=== PATIENT | female | born 1955 | race Caucasian/White ===

== ENCOUNTER 2018-06-05 12:04 | Emergency (ER) | payer MEDICAID, SELFPAY ==
[2018-06-05 12:10] VITALS: BP 149/77; PULSE 68; RESP 15; TEMP 36.5; O2SAT 98
[2018-06-05] MEDS: Ibuprofen 600 MG TAB PO (12:56)
--- NOTE | 2018-06-05 12:59 | ED.GENADUL_ITS ---
Discharge Plan Disposition Patient Disposition: HOME Condition: Stable Discharge Details Chief Complaint: Orthopedic Clinical Impression: Fracture of left toe Primary Care Provider: Anita Lea ED Provider: Bernard Marlow Home Meds and New Rx's Prescriptions: Continue multivitamin 1 EACH tablet 1 ea PO DAILY RF: 0 ascorbic acid (vitamin C) [Vitamin C] 1,000 MG tablet 1,000 mg PO DAILY Qty: 1 RF: 0 Discharge Instructions Instructions: Toe Fracture (ED) Discharge Data Discharge Physician: Bernard Marlow Medical Decision Making MDM Narrative Medical decision making narrative: 62 yo female who denies chronic medical problems comes in with 3 weeks of left small toe pain after she struck it on a curb and still has pain so came here. She denies fevers. Based on exam I suspect contusion, but will xray to eval for fx. No warmth or significnat erythema so doubt septic joint, cellulitis or gout Xray shows no significant displacement, possible small hairline fracture of distal mid small toe. Nursing will navin tape her toes and advised ASHLEY f/u with pcp. Differential Diagnosis contusion, fx, sprain, strain Imaging Data Radiologic Study: Attestation: I personally reviewed and interpreted this imaging study as follows: Imaging: X-Ray (left foot xray) My impression: possible small hairline fracture of small toe, no significant displacement HPI - General Adult General Mode of arrival: ambulatory . Date/Time Provider Initiated Documentation: 06/05/18 12:47 . Limitations to Documentation: no limitations . Information obtained by: patient . History of Present Illness 62 year old F presents to the emergency department with the chief complaint of left little toe pain, described as mild, with intensity rated at 3. Quality is described as aching, and is localized to the lower extremity. Patient reports no radiation. Patient started experiencing this week(s) (3) and it has been constant. Rest improves symptom(s), Movement worsens symptoms . Patient notes no other symptoms.. Patient did receive the following treatments prior to arrival, other (tylenol) Related Data Home Medications Medication Instructions Recorded Confirmed multivitamin 1 ea PO DAILY 09/24/13 06/05/18 ascorbic acid (vitamin C) [Vitamin 1,000 mg PO DAILY #1 12/01/17 06/05/18 C] Allergies Allergy/AdvReac Type Severity Reaction Status Date / Time glycerin Allergy Unknown RASH Unverified 06/05/18 12:14 phenylephrine Allergy Unknown RASH Unverified 06/05/18 12:14 pramoxine Allergy Unknown RASH Unverified 06/05/18 12:14 General Stated Complaint: Orthopedic MACK: 4 Review of Systems Review of Systems All systems reviewed & are unremarkable except as noted in HPI and below Constitutional Denies chills, Denies fever(s) and Denies weakness Eyes Patient Denies loss of vision ENT Denies change in voice Cardiovascular Denies chest pain and Denies dyspnea Respiratory Denies dyspnea Gastrointestinal Denies abdominal pain, Denies nausea and Denies vomiting Genitourinary Denies dysuria Musculoskeletal Denies joint swelling Integumentary/Breasts Denies rash Neurologic Denies loss of vision and Denies weakness Psychiatric Denies depression Endocrine Denies cold intolerance and Denies heat intolerance Allergic/Immunologic Reports urticaria PFSH Family History Mother Essential hypertension Hyperlipidemia Neoplasm Cerebrovascular accident Sister Essential hypertension Endometriosis Sister Endometriosis Sister Substance abuse Diabetes Essential hypertension Endometriosis Brother Diabetes Essential hypertension Heart disease Brother Essential hypertension Brother Substance abuse Diabetes Heart disease Myocardial infarction Grandfather No problems noted. Grandfather No problems noted. Grandmother Essential hypertension Neoplasm Grandmother No problems noted. Son No problems noted. Daughter No problems noted. Social History Smoking/Tobacco Use Status: Never Surgical History Biopsy of breast Colonoscopy - MAC (~12/2011) Ligation of fallopian tube Sigmoidoscopy (07/06/13) Tonsillectomy and adenoidectomy Exam Const General: no acute distress Orientation: alert [facility] Head: normal to inspection Ears: external ears normal General nose exam: external nose normal Mouth: moist mucous membranes Eyes General: appearance normal, both eyes and all related structures Neck Neck: normal visual inspection Resp Effort & Inspection: normal respiratory effort and able to speak in complete sentences Cardio Rate: regular rate Skin General skin exam: no rashes or lesions noted Neuro General: alert and oriented x3 Extrem General: other (mild swelling and ertyhema of distal left small toe. Full rom , no warmth, intact sensation) Psych Mental Status: mental status grossly normal Course Vital Signs Temperature 36.5 C 06/05/18 12:10 Pulse 68 06/05/18 12:10 Respiratory Rate 15 06/05/18 12:10 Blood Pressure 149/77 H 06/05/18 12:10 Pulse Oximetry 98 06/05/18 12:10 Temperature 36.5 C 06/05/18 12:10 Pulse 68 06/05/18 12:10 Respiratory Rate 15 06/05/18 12:10 Blood Pressure 149/77 H 06/05/18 12:10 Pulse Oximetry 98 06/05/18 12:10
--- NOTE | 2018-06-05 13:15 | DI.RAD_ITS ---
SYMPTOMS/DIAGNOSIS: PAIN LT SMALL TOE LEFT FOOT: No fracture or dislocation is seen. IMPRESSION: Negative left foot.
[2018-06-05 13:49] VITALS: BP 149/77; PULSE 68; RESP 15; TEMP 36.5; O2SAT 98
== END 2018-06-05 14:58 | disposition home or self-care (01) ==
PROVIDERS: Emergency Provider Emergency Medicine; PCP Nurse Practitioner Family
DX: S92.532A Displaced fracture of distal phalanx of left lesser toe(s), initial encounter for closed fracture (principal); W22.8XXA Striking against or struck by other objects, initial encounter
CPT/HCPCS: 99284; 73630

== ENCOUNTER 2019-07-23 08:37 | Outpatient (CLI) | payer MEDICARE, SELFPAY | END 2019-07-23 08:57 | PROVIDERS: PCP Nurse Practitioner Family; Visit Provider Nurse Practitioner Family | DX: Z00.00 Encounter for general adult medical examination without abnormal findings (principal); Z53.29 Procedure and treatment not carried out because of patient's decision for other reasons | CPT/HCPCS: 80048; 80061; 83036 ==

== ENCOUNTER 2019-10-04 09:57 | Outpatient (CLI) | payer MEDICARE, MEDICAID, SELFPAY ==
[2019-10-04 14:19] LABS: Anion Gap 7.7 mmol/L (3-11); BUN 8 mg/dL (7-18); CO2 29.3 mmol/L (21.0-32.0); CREATININE 0.61 mg/dL (0.55-1.02); Calcium 9.8 mg/dL (8.5-10.1); Calculated LDL 108 mg/dL; Chloride 108 mmol/L (98-107); Cholesterol 189 mg/dL (<200); Glucose 91 mg/dL (74-106); HDL Cholesterol 76 mg/dL (40-60); Potassium 4.4 mmol/L (3.5-5.1); Sodium 145 mmol/L (136-145); Triglyceride 27 mg/dL (<150)
[2019-10-05 14:43] LABS: Hemoglobin A1C 5.6 % (3.8-5.6)
== END 2019-10-04 10:17 ==
PROVIDERS: PCP Nurse Practitioner Family; Visit Provider Nurse Practitioner Family
DX: E11.9 Type 2 diabetes mellitus without complications (principal); Z83.3 Family history of diabetes mellitus
CPT/HCPCS: 36415; 80048; 80061; 83036

== ENCOUNTER 2019-10-15 14:45 | Outpatient (CLI) | payer MEDICARE, SELFPAY ==
[2019-10-15 15:04] LABS: HCT 43.4 % (36.0-46.0); HGB 14.2 g/dL (12.0-15.5); Mean Corp. HGB Concentration 32.7 g/dL (32.0-36.0); Mean Corpuscular Volume 91.8 fL (80-95); Mean Platelet Volume 9.7 fL (8.0-11.0); Platelet Count 286 x1000/uL (130-400); RBC 4.73 m/cumm (4.00-5.20); RBC Distribution Width 12.9 % (11.7-14.6); White Blood Cell Count 6.25 k/cumm (4.4-10.8)
== END 2019-10-15 15:05 ==
PROVIDERS: PCP Nurse Practitioner Family; Visit Provider Nurse Practitioner
DX: R53.83 Other fatigue (principal); R10.2 Pelvic and perineal pain
CPT/HCPCS: 36415; 85027; 84443

== ENCOUNTER 2019-10-19 00:29 | Outpatient (CLI) | payer MEDICARE, MEDICAID, SELFPAY ==
--- NOTE | 2019-10-19 12:49 | DI.US_ITS ---
EXAM: US PELVIS TRANSVAGINAL CLINICAL HISTORY: PELVIC PAIN IN FEMALE/BLOATING,r10.2,r14.0 TECHNIQUE: Ultrasound performed using standard protocol. COMPARISON: SOFT TISSUE UPPER/LOWER EXT US from 03/22/2010 FINDINGS: Pelvic ultrasound was performed transabdominally and transvaginally. Please see the accompanying cecile a sheet for measurements of pelvic structures. Uterus is normal in size and shape but the myometrium is poorly visualized transvaginally and transabdominally for technical reasons. There are multiple calcifications seen in the fundal portion of the endometrium which could be associated with a small e ndometrial mass. Otherwise endometrial stripe is unremarkable measuring 1-2 millimeters in thickness . The ovaries are unremarkable in appearance as visualized, although not ideally seen. No free fluid identified in the cul-de-sac. Unremarkable limited scanning of the kidneys. IMPRESSION: Question small calcified endometrial mass in the fundus of the uterus. Correlation with endometrial biopsy suggested.
== END 2019-10-19 00:49 ==
PROVIDERS: PCP Nurse Practitioner Family; Visit Provider Nurse Practitioner
DX: R10.2 Pelvic and perineal pain (principal); R14.0 Abdominal distension (gaseous); N85.8 Other specified noninflammatory disorders of uterus; R19.09 Other intra-abdominal and pelvic swelling, mass and lump
CPT/HCPCS: 76830; 76856

== ENCOUNTER 2020-02-28 09:05 | Outpatient (CLI) | payer MEDICARE, MEDICAID, SELFPAY ==
--- NOTE | 2020-02-28 15:15 | DI.CT_ITS ---
EXAM: CT HEAD WO CLINICAL HISTORY: Occipital headache x 5mo,R51 TECHNIQUE: COMPARISON: No exams were available for comparison FINDINGS: Noncontrast CT was performed. There is mild bifrontal atrophy. There is no evidence of acute intrac ranial hemorrhage, mass effect, or midline shift. The orbital and temporal bone structures appear intact. The visualized mastoid air cells and paranas al sinuses appear clear. IMPRESSION: Evidence of acute intracranial process.
== END 2020-02-28 09:25 ==
PROVIDERS: PCP Nurse Practitioner Family; Visit Provider Nurse Practitioner Family
DX: R51 Headache (principal); G31.89 Other specified degenerative diseases of nervous system
CPT/HCPCS: 70450

== ENCOUNTER 2020-05-15 01:04 | Outpatient (CLI) | payer MEDICARE, MEDICAID, SELFPAY ==
--- NOTE | 2020-05-15 07:15 | DI.RAD_ITS ---
EXAM: XR CERVICAL SPINE COMP 4-5V INDICATION: Neck pain, asssess for DDD,M54.2. COMPARISON: No exams were available for comparison TECHNIQUE: 2D digital imaging was performed. FINDINGS: Moderate to severe narrowing of the C5-6 and C6-7 disc spaces. There are small endplate osteophytes at these levels. There is mild bilateral neural foraminal narrowing. There are mild facet joint de generative changes. The alignment appears normal. The airway appears intact. IMPRESSION: Degenerative changes C5-6 and C6-7. DATA REPOSITORY: RADIATION DOSE DELIVERED:
== END 2020-05-15 01:24 ==
PROVIDERS: PCP Nurse Practitioner Family; Visit Provider Nurse Practitioner Family
DX: M47.812 Spondylosis without myelopathy or radiculopathy, cervical region (principal); M48.02 Spinal stenosis, cervical region
CPT/HCPCS: 72050

== ENCOUNTER 2021-07-02 01:02 | Outpatient (CLI) | payer MEDICARE, MEDICAID, SELFPAY ==
--- NOTE | 2021-07-02 09:35 | DI.MRI_ITS ---
Exam(s) MR BRAIN WO EXAM: MR BRAIN WO CLINICAL HISTORY: TORRE with visual disturbance to right eye,R51.9. TECHNIQUE: Multiplanar multisequence MRI of the brain was performed. CONTRAST MATERIAL: Noncontrast. COMPARISON: CT CT HEAD WO from 02/28/[address] HEAD WO from 02/28/2020 FINDINGS: VENTRICLES AND EXTRA AXIAL SPACES: Normal in size and morphology for the patient's age. HEMORRHAGE: None. CEREBRAL PARENCHYMA: No focus of restricted diffusion to suggest acute infarct. No space-occupying le pramod identified. Mild frontal atrophy, unchanged. Scattered foci of high signal in the white matter , likely reflecting microvascular changes. MIDLINE SHIFT: None. BRAINSTEM/CEREBELLUM: Normal. VISUALIZED PARANASAL SINUSES/MASTOIDS: Clear. Vascular flow voids are intact. Orbits are unremarkable. Pituitary normal in size. IMPRESSION: Atrophy and scattered white matter foci likely reflecting microvascular disease. DATA REPOSITORY:
== END 2021-07-02 01:22 ==
PROVIDERS: PCP Nurse Practitioner Family; Visit Provider Nurse Practitioner Family
DX: R51.9 Headache, unspecified (principal); G31.9 Degenerative disease of nervous system, unspecified
CPT/HCPCS: 70551

== ENCOUNTER 2021-07-13 01:16 | Outpatient (CLI) | payer MEDICARE, MEDICAID, SELFPAY ==
[2021-07-13 12:42] LABS: HCT 40.3 % (36.0-46.0); MCHC 32.3 % (32.0-36.0); MCV 93.1 fL (80-95); MPV 9.7 fL (8.0-11.0); Platelet Count 256 10^3/uL (130-400); RBC 4.33 10^6/uL (3.93-5.22); RDW 12.8 % (11.7-14.6); RDW-SD 44.1 fL; WBC 5.29 10^3/uL (4.4-10.8)
[2021-07-13 12:55] LABS: ESR 10 mm/hr (0-30)
[2021-07-13 13:03] LABS: ALT 29 U/L (14-59); AST 16 U/L (15-37); Albumin 3.8 g/dL (3.4-5.0); Alkaline Phosphatase 59 U/L (46-116); Anion Gap 7.1 mmol/L (3-11); BUN 13 mg/dL (7-18); Bilirubin, Total 0.5 mg/dL (0.2-1.0); CO2 27.9 mmol/L (21.0-32.0); CREATININE 0.6 mg/dL (0.55-1.02); Calcium 10.1 mg/dL (8.5-10.1); Calculated LDL 110 mg/dL (<100); Chloride 108 mmol/L (98-107); Cholesterol 206 mg/dL (<200); Glucose 92 mg/dL (74-106); HDL Cholesterol 88 mg/dL (40-60); Potassium 4.5 mmol/L (3.5-5.1); Sodium 143 mmol/L (136-145); TSH (W/Ref FT4) 1.96 uIU/mL (0.36-3.74); Total Protein 6.7 g/dL (6.4-8.2); Triglyceride 40 mg/dL (<150)
[2021-07-13 13:11] LABS: C-Reactive Protein 0.09 mg/dL (0.0-0.3)
== END 2021-07-13 01:17 | disposition home or self-care (01) ==
LOC: LOS 01:16
PROVIDERS: PCP Nurse Practitioner Family; Visit Provider Family Medicine
DX: G44.59 Other complicated headache syndrome (principal); I10 Essential (primary) hypertension
CPT/HCPCS: 36415; 80053; 80061; 85027; 85652; 84443; 86140

== ENCOUNTER 2021-08-03 03:34 | Outpatient (CLI) | payer MEDICARE, MEDICAID, SELFPAY ==
[2021-08-03 13:03] LABS: Anion Gap 9.2 mmol/L (3-11); BUN 10 mg/dL (7-18); CO2 26.8 mmol/L (21.0-32.0); CREATININE 0.7 mg/dL (0.55-1.02); Calcium 9.9 mg/dL (8.5-10.1); Chloride 105 mmol/L (98-107); Glucose 99 mg/dL (74-106); Sodium 141 mmol/L (136-145)
== END 2021-08-03 03:35 | disposition home or self-care (01) ==
LOC: LOS 03:34
PROVIDERS: PCP Nurse Practitioner Family; Visit Provider Family Medicine
DX: I10 Essential (primary) hypertension (principal)
CPT/HCPCS: 36415; 80048

== ENCOUNTER 2021-08-14 08:26 | Outpatient (CLI) | payer MEDICARE, MEDICAID, SELFPAY ==
--- NOTE | 2021-08-16 15:44 | PDOC.EEG ---
Neurology EEG EEG: [facility] Department of Neurology EEG REPORT Date of Recordin08/14/21 Interpreting Physician: Dr. Betty Clark PCP/Referring Provider: Dr. Burgess/Dr. Eleazar Genao Reason for study: Ms. Banegas is a 65 year-old woman with new daily persistent headaches following a 10 min hallucination of the right eye only. Current Medications: Home Medications Medication Instructions Recorded Confirmed Type calcium carbonate 500 mg (1,250 1 tab PO DAILY 10/15/19 08/10/21 History mg)-vitamin D3 400 unit tablet ascorbate calcium (vitamin C) 500 500 mg PO TID tab 06/30/20 08/10/21 History mg tablet varicella-zoster glycoE [id number] 0.5 ml IM ONCE #1 ea 05/14/21 08/10/21 Rx adj(PF) 50 mcg/0.5 mL IM susp, kit aspirin 325 mg tablet 325 mg PO DAILY 08/10/21 08/10/21 History lisinopril 2.5 mg tablet 2.5 mg PO DAILY #90 tab 08/10/21 08/10/21 Rx METHODS: A 21 channel digitized electroencephalogram was performed in the [facility] Clinical Neurophysiology Laboratory. The 10/20 international system of electrode placement was used and bipolar and referential electrode montages were recorded. In addition to EEG the patient was monitored for EKG and lateral/vertical eye movements. Activation procedures of photic stimulation and hyperventilation were performed if applicable. Video was used during activation procedures and during events where applicable. The duration of the recording was 30 minutes. DESCRIPTION OF EEG: The patient was noted to be awake, drowsy, and asleep during the recording. During maximal wakefulness a 9-Hz posterior background rhythm was present which was well-modulated, symmetrical, reactive to eye opening, and of moderate voltage. With eye opening the background activity changed to a low voltage mixture of alpha, beta, and occasional theta range frequencies. Faster frequencies were present in the bilateral anterior head regions. There was a normal anterior-posterior voltage gradient. During drowsiness, there was attenuation of the posterior dominant background rhythm and vertex waves. Stage II sleep was present with symmetrical sleep spindles, K-complexes, and vertex waves. Activating Procedures: Photic stimulation was performed which produced a symmetrical posterior driving response at various flash frequencies. Hyperventilation was performed with moderate effort and produced no physiological slowing of the background. EKG: EKG revealed normal sinus rhythm. INTERPRETATION: This EEG is normal during the awake and sleep states as well as during photic stimulation and hyperventilation. PRIOR EEG: none CLINICAL CORRELATION: No focal regions of cerebral dysfunction or epileptiform activity was present. Epilepsy remains a clinical diagnosis and a normal EEG does not rule out epilepsy. Clinical correlation is advised. Betty Clark MD
== END 2021-08-14 08:27 | disposition home or self-care (01) ==
PROVIDERS: PCP Nurse Practitioner Family; Visit Provider Student in an Organized Health Care Education/Training Program
DX: R51.9 Headache, unspecified (principal); R44.1 Visual hallucinations
CPT/HCPCS: 95819

== ENCOUNTER 2021-08-16 01:04 | Outpatient (CLI) | payer MEDICARE, MEDICAID, SELFPAY ==
--- NOTE | 2021-08-16 11:35 | DI.CT_ITS ---
Exam(s) CT BRAIN NECK CTA EXAM: CT BRAIN NECK CTA CLINICAL HISTORY: NEW DAILY PERSISTENT HEADACHE, G44.52,F/U CAROTID. TECHNIQUE: Imaging Protocol: Axial CT angiography was performed with multi-slice acquisition and mu lti-planar and/or 3D reconstructions. CONTRAST MATERIAL: Intravenous: Omnipaque 350 Contrast volume:structured data in ml COMPARISON: No exams were available for comparison FINDINGS: CTA Neck W: Aortic arch anatomy: The aortic arch anatomy is conventional. Anterior circulation: Both common carotid arteries ascend with normal luminal diameters. There is no significant plaque ev ident in these vessels. There is minimal atherosclerotic disease at the level the carotid bulbs and proximal internal carotid arteries. No significant stenosis and the internal carotid arteries are ni chris patent in the upper neck and skull base. Posterior circulation: The left vertebral artery is dominant. It arises in conventional fashion off of the left subclavian artery. No significant stenosis at its origin in the subclavian artery proximal to the vertebral art marce takeoff point. The left vertebral artery ascends with normal luminal diameter in the foramen tra nsversarium and contribute to the formation of the basilar artery at the skull base. Right vertebral artery is a thinner vessel. It arises off of the subclavian artery and also ascends without intraluminal thrombus nor dissection. However, it is hypoplastic at the skull base and termi nates as posterior inferior cerebellar artery. The main contributor to the formation of the basilar artery is the left vertebral artery. CTA Brain W: Anterior circulation: Both internal carotid arteries are patent in the skull base and cavernous sinuses. Supraclinoid aspe cts are patent. A1 segments are patent as are the anterior cerebral arteries. There is no evidence of aneurysm at the level of the anterior communicating artery. Both middle cerebral arteries are patent out to the sylvian fissure branches. Posterior circulation: Basilar artery ascends in the midline. Distally gives off superior cerebellar arteries bilaterally a nd above this level terminates as patent bilateral posterior cerebral arteries. Both posterior cereb ral arteries also received blood flow from posterior communicating arteries on either side of the cir [id number]. CT BRAIN: There is no evidence of intracranial hemorrhage, mass effect, or shift of midline structures. There are no extra-axial fluid collections. Ventricles are not enlarged or shifted. There are no ring enh ancing lesions in the brain and no abnormal meningeal enhancement. IMPRESSION: 1. Patent carotid arteries in the neck. No significant stenosis. Left vertebral artery is dominant. No evidence of vertebral artery thrombosis nor dissection. 2. Patent intracranial arteries. No intraluminal thrombus. No aneurysms. 3. No significant focal findings in the brain. No abnormal meningeal enhancement, focal nor diffus e. RADIATION DOSE DELIVERED: 1,827.02mGy.cm Total DLP DATA REPOSITORY: All CT scans at this facility are submitted to the National Radiology Data Registry (NRDR) Dose Index Registry (DIR) with the [employer] (A[employer]). RADIATION OPTIMIZATION: All CT scans at this facility use at least one of these dose optimization te chniques: automated exposure control; mA and/or kV adjustment per patient size (includes targeted exa ms where dose is matched to clinical indication); or iterative reconstruction.
[2021-08-16] MEDS: Omnipaque 350 MG/ML 100 ML BTL IJ (11:37)
[2021-08-16] MEDS: Normal Saline - Diluent 50 ML VIAL IV (11:38)
[2021-08-16] MEDS: Normal Saline Flush 10 ML SYR IVP (11:39)
== END 2021-08-16 01:24 ==
PROVIDERS: PCP Nurse Practitioner Family; Visit Provider Orthopaedic Surgery Adult Reconstructive Orthopaedic Surgery
DX: G44.52 New daily persistent headache (NDPH) (principal)
CPT/HCPCS: 70496; 70498; J3490

== ENCOUNTER → 2021-08-20 09:19 | Outpatient (BNVA) | payer MEDICARE, MEDICAID, SELFPAY | PROVIDERS: PCP Nurse Practitioner Family; Referring Provider Nurse Practitioner Family; Visit Provider Psychiatry & Neurology Neurology ==

== ENCOUNTER 2022-03-01 07:15 | Day surgery (SDC) | payer MEDICARE, MEDICAID, SELFPAY ==
[2022-03-01 07:50] VITALS: BP 186/75; PULSE 64; RESP 16; TEMP 36.9; O2SAT 99
[2022-03-01] MEDS: Tropicam./Phenyleph. (1/2.5%) 5 ML BTL OD ×3 (08:06→08:19)
--- NOTE | 2022-03-01 08:28 | W.ANESPRE ---
General Info Date of Service Date Performed: 03/01/22 Height: 5 ft 6 in Weight: 70.8 kg Body Mass Index (BMI): 25.2 Surgical Procedure: Operation Date: 03/01/22 09:50 Proposed Procedure Side Surgeon p Cataract Extraction with IOL Implant Right Herson Steve MD Meds Allergies and Home Medications Allergies Allergy/AdvReac Type Severity Reaction Status Date / Time cocoa butter Allergy Intermediate Rash Verified 03/01/22 07:49 [From Preparation H] glycerin [From Preparation H] Allergy Intermediate Rash Verified 03/01/22 07:49 mineral oil* Allergy Intermediate Rash Verified 03/01/22 07:49 [From Preparation H] petrolatum,white Allergy Intermediate Rash Verified 03/01/22 07:49 [From Preparation H] shark liver oil Allergy Intermediate Rash Verified 03/01/22 07:49 [From Preparation H] cephalexin AdvReac Nausea,Vomi Verified 03/01/22 07:49 ting,cramps ,diarrhea Home Medication Medication Instructions Recorded calcium carbonate 500 mg-vitamin 1 tab PO DAILY 10/15/19 D3 10 mcg (400 unit) tablet (Calcium 500 + D) ascorbate calcium (vitamin C) 500 500 mg PO TID 06/30/20 mg tablet multivitamin 1 tab PO DAILY 02/27/22 Current Visit Medications: Current Medications Generic Name Dose Route Start Last Admin Trade Name Freq PRN Reason Stop Dose Admin Acetaminophen 1,000 mg 03/01/22 06:00 Acetaminophen 500 Mg Tab PO Q4H PRN PRN Miscellaneous Medication 0 ml 03/01/22 06:00 Prednisolone 1%, Moxifloxacin 0.5%, Nepafenac 0.1% 5ml Btl OD DIRECTED [facility] Miscellaneous Medication 0 ml 03/01/22 06:00 03/01/22 08:19 Tropicam./Phenyleph. (1/2.5%) 5 Ml Btl OD 1 drp DIRECTED PRASHANT Administration Tetracaine HCl 0 ml 03/01/22 06:00 Tetracaine 0.5% 4 Ml Btl OD DIRECTED PRASHANT PFSH Active Problems Active Problems: Problem Status Onset Code Hearing loss H91.90 Hyperlipidemia E78.5 Essential hypertension I10 Migraine headache with aura G43.109 Recurrent occipital headache R51.9 Medical History Medical History (Updated 03/01/22 @ 08:57 by Herson Steve MD) BPPV (benign paroxysmal positional vertigo) Herpes zoster 05/2021 Osteoarthritis C5-6 cervical spine Osteopenia [place] 06[place]04[place] [facility] [place]igmoid diverticulosis Tubulovillous adenoma of colon Surgical History Surgical History History of bilateral tubal ligation (~1977) History of reversal of tubal ligation (~1981) S/P colonoscopy S/P tonsillectomy and adenoidectomy Tobacco Smoking/Tobacco Use Status: Never Passive smoking exposure: Yes Second hand exposure: Yes Alcohol Alcohol Intake: current Alcohol intake frequency: a few times a month Alcohol type: wine Substance Use Substance use: Never Substance use type: does not use Prental History History 4 Para 2 Hx # Term Pregnancies Multiple births Hx # Pregnancies Ectopic pregnancies AB induced Hx Number of Living Children 2 AB spontaneous 2 Vital Signs and Lab Results Vital Signs Most Recent Vital Signs in EMR: Most Recent Vital Signs Temp Pulse Resp BP Pulse Ox 36.9 C 64 16 186/75 H 99 03/01/22 07:50 03/01/22 07:50 03/01/22 07:50 03/01/22 07:50 03/01/22 07:50 Lab Results Blood Type / Crossmatch: No Data to Display Complete Blood Count: No Data to Display Complete Metabolic Panel: No Data to Display Liver Function Panel: No Data to Display Coagulation Panel: No Data to Display Cardiac Panel: No Data to Display Arterial Blood Gas: No Data to Display Venous Blood Gas: No Data to Display Pancreas Panel: No Data to Display Thyroid Panel: No Data to Display Infectious Disease: No Data to Display Blood Cultures: No Data to Display Toxicology Panel: No Data to Display Anesthesia Assessment and Plan Anesthesia History Personal History: No History of Anesthesia Complications Family History: No Family History of Anesthesia Complications Exercise Tolerance Exercise Tolerance: Metabolic Equivalents>4 Cardiac & Pulmonary Exam Cardiac Exam: Normal S1/S2 Heart Sounds Pulmonary Exam: Clear Bilateral Breath Sounds Implantable Cardiac Device Does patient have a Pacemaker or an ICD?: No Airway Exam Known Difficult Airway: No Mallampati Class: 2 Mouth Opening: Normal (> 3cm) Thyromental Distance: Greater than 3 cm Neck Range of Motion: Full ROM Neck Circumference: Normal Teeth Condition: Normal Dentition ASA Classification ASA Score: ASA 2 Emergency Case?: No NPO Status NPO Status: NPO Clears >2 hours, Solids >8 hours Anesthesia Plan Resuscitation Status: Full Code Anesthesia Technique: MAC Anesthesia Airway Planned: Natural Airway Monitors Used: Standard Monitors
[2022-03-01] MEDS: Midazolam/Ketamine/Ondansetron (3/25/2MG) 1 TAB 1 EACH SL (09:00)
[2022-03-01 09:04] VITALS: BMI 25.2
[2022-03-01] MEDS: Tetracaine 0.5% 4 ML BTL OD (09:05)
[2022-03-01] MEDS: Lidocaine 2% Jelly 6 ML SYR (09:20)
[2022-03-01] MEDS: Balanced Salt Soln.-PLUS 500 ML BAG (09:20)
[2022-03-01] MEDS: Povidone-Iodine Ophth 30 ML BTL (09:21)
[2022-03-01] MEDS: Duovisc Viscoelastic System EACH 1 EACH (09:22)
--- NOTE | 2022-03-01 09:37 | W.PM.DSUDISC ---
Discharge Plan Disposition Patient Disposition: HOME Condition: Good Discharge Details Attending Provider: Herson Steve Primary Care Provider: Danielle Burgess Home Meds and New Rx's Prescriptions: No Action ascorbate calcium (vitamin C) 500 mg tablet 500 mg PO TID calcium carbonate-vitamin D3 [Calcium 500 + D] 500 mg(1,250mg) -400 unit tablet 1 tab PO DAILY multivitamin Tablet 1 tab PO DAILY Discharge Instructions Stand Alone Forms: Post-op Topical Cataract, Conrad Riggs (DSU) Discharge Orders Discharge Orders: Discharge Order (Routine); Ordered 03/01/22 Ordered By: Herson Steve DS: Diagnosis Discharge Diagnosis (1) Nuclear sclerotic cataract of right eye: Status: Resolved (2) Cortical cataract of right eye: Status: Resolved
--- NOTE | 2022-03-01 09:38 | W.PM.OP ---
Date of service: 03/01/22 Time of Service: 08:38 Operative Note Operative Note DATE OF PROCEDURE: 03/01/22 PRE-OP DIAGNOSIS: Nuclear/cortical cataract, right eye POST-OP DIAGNOSIS: same PROCEDURE: Cataract extraction using phacoemulsification with intraocular lens implant, right eye SURGEON: Herson Steve ANESTHESIA TYPE: Local By Surgeon and MAC Refer to Anesthesia Record ESTIMATED BLOOD LOSS: 0 PATHOLOGY: none sent COMPLICATIONS: None Patient was transported to: same day Patient's condition: stable Implants: Saul & Saul/JACQUELINE Tecnis [id number] Indications: Progressive visual loss due to cataract, right eye Procedure Description: CATARACT SURGERY OPERATIVE REPORT PREOPERATIVE DIAGNOSIS: 1. Nuclear/cortical cataract, right eye POSTOPERATIVE DIAGNOSIS: Same OPERATION: 1. Cataract extraction using phacoemulsification with posterior chamber intraocular lens implant, right eye. IOL: IOL Substation Design Draftsperson/Model: Saul & Saul / JACQUELINE Tecnis [id number] IOL Power: + 20.0 diopters IOL Serial Number: [id number] Optic Diameter: 6.0mm Haptic/Overall Diameter: 13.0mm PHACO INFO: [employer] In-Home Mediaurion Vision System with OZil and Active Fluidics Cumulative Dispersed Energy (CDE): 9.15 seconds SURGEON: Herson Steve MD, RADHA ANESTHESIA: Monitored Anesthesia Care (MAC), with local sub-tenon's anesthetic infiltration COMPLICATIONS: None SPECIMENS: None INDICATIONS FOR PROCEDURE: The patient is a 66-year-old lady with history of diminished visual acuity in her right eye secondary to development of nuclear/cortical cataract. The option of cataract surgery was offered to the patient and she wished to proceed. She has a history of moderate to high myopia and reads without her glasses at a distance of approximately 12 inches or so. She wishes to remain that way postoperatively. Postoperative refractive target is -3.0 diopters or slightly more myopic. PROCEDURE: The correct surgical eye was identified and marked as the right eye and the pupil was dilated in the preoperative area using mydriatics and cycloplegics. The dilated pupil size was 5.0 mm. Oral sedation was administered in the form of an Imprimis MKO Melt (midazolam 3mg/ketamine 25mg/ondansetron 2mg). The patient was brought to the operating room where cardiopulmonary monitoring was instituted and surgical time-out was performed, confirming the correct operative eye and IOL power. Topical anesthesia was administered and ophthalmic povidone-iodine 5% was instilled into the conjunctival fornices. Lidocaine gel was applied to the cornea and the beatrice-ocular area was prepped with Betadine 10% solution and draped in the usual sterile fashion for intraocular surgery, including an aperture drape. A Tegaderm transparent film dressing was cut in half and used to cover the lashes and lid margins. Care was taken to sequester the lashes and lid margins under the Tegaderm dressing. A lid speculum was placed between the lids of the operative eye and the Carlos Lux[employer] Revalia operating microscope was maneuvered into position. Marija scissors were then used to make a conjunctival buttonhole approximately 6mm posterior to the limbus in the inferonasal quadrant. Blunt dissection was carried out to expose bare sclera, and a blunt-tipped sub-tenon?s anesthesia cannula was introduced and passed posteriorly along the globe where non-preserved plain lidocaine was injected into posterior sub-Tenon?s space. A sideport knife was used to make a paracentesis port inferotemporally. Intraocular phenylephrine/lidocaine was injected into the anterior chamber. The anterior chamber was filled with viscoelastic. The anterior chamber was noted to be quite shallow, considering her axial length of greater than 24 mm. A 2.4mm keratome knife was used to construct a 2-plane near-clear corneal tunnel extending 2.0mm into clear cornea superiortemporally. A flap was raised on the anterior capsule and capsulorhexis forceps were used to complete a continuous curvilinear capsulorhexis of 5.0 mm. Balanced salt solution was then used to perform cortical cleaving hydrodissection and nuclear hydrodelineation until the lens could be freely rotated within the capsular bag. The lens nucleus was then disassembled and removed within the capsular bag and iris plane using phacoemulsification. Residual cortical material was removed using the I/A handpiece. The posterior capsule was carefully polished to remove as much residual lens epithelial cells as safely possible. The capsular bag was then inflated and the anterior chamber deepened with viscoelastic. The lens implant described above was inserted into the capsular bag using the JACQUELINE Storden Injector. A Kuglen hook was used to dial the IOL into position. Residual viscoelastic was then removed first from posterior to the IOL, then from the anterior chamber using the I/A handpiece. The lens implant was noted to center nicely within the capsular bag. The incisions were stromally hydrated, and the anterior chamber was reformed using BSS. Then 0.5cc of moxifloxacin 1.0mg/ml were injected into the capsular bag and anterior chamber. The incisions were checked with a Weck spear and found to be secure. Several drops of ophthalmic povidone-iodine 5% were then applied to the eye followed by two drops of Imprimis combination prednisolone/moxifloxacin/nepafenac solution. The drapes were removed and a clear plastic protective eye shield was placed over the eye. The patient was then returned to Same Day Surgery in stable condition.
[2022-03-01 09:40] VITALS: BP 151/76; PULSE 71; RESP 16; TEMP 36.6; O2SAT 100
--- NOTE | 2022-03-01 10:04 | W.ANESPOSTOP ---
Postoperative Evaluation Date, Time and Location Date Performed: 03/01/22 Time Performed: 09:45 Patient Location: Day Surgery Unit Vital Signs Most Recent Imported Vital Signs: Most Recent Vital Signs Temp Pulse Resp BP Pulse Ox 36.6 C 71 16 151/76 H 100 03/01/22 09:40 03/01/22 09:40 03/01/22 09:40 03/01/22 09:40 03/01/22 09:40 Pain Score Most Recent Pain Score: Most Recent Pain Score Pain Level 0 03/01/22 09:40 Assessment Mental Status: Awake (Alert & Oriented to Patient Baseline) Airway and Respiratory Function: Patent airway with normal (patient baseline) respiratory exam Cardiovascular Function: Hemodynamically Stable Hydration Status: Adequately Hydrated Nausea & Vomiting: No Nausea or Vomiting Pain: Pt. Denies Any Pain Peripheral Nerve Block: Patient did not receive a nerve block
[2022-03-01 10:05] VITALS: BP 143/80; PULSE 69; RESP 16; TEMP 36.1; O2SAT 97
== END 2022-03-01 10:14 | disposition home or self-care (01) ==
PROVIDERS: PCP Family Medicine; Visit Provider Ophthalmology
PROC: (CPT 66984; principal; 2022-03-01 09:40)
DX: H25.11 Age-related nuclear cataract, right eye (principal); I10 Essential (primary) hypertension; E78.5 Hyperlipidemia, unspecified
CPT/HCPCS: 66984; V2632

== ENCOUNTER → 2022-07-26 00:32 | Outpatient (CLI) | payer MEDICARE, SELFPAY ==
--- OUTSIDE RECORDS SUMMARY | 2022-07-26 00:33 | XMS_ITS | Encounter Summary ---
:1955 Author Organization [facility] [place] [address] Care Team Providers Name Role Phone Danielle Burgess MD Primary Care Provider Encounter Details Date Type Department Care Team Description 06/14/2022 Hospital Encounter Mammography/DXA at [facility], Encounter for [facility] screening mammogram [address] [place] [id number] [phone] Social History Tobacco Use Types Packs/Day Years Used Date Never Smoker Smokeless Tobacco: Never Used Alcohol Use Standard Drinks/Week Comments Yes 0 (1 standard drink = 0.6 oz pure alcoho l) occasionally 1-2 x monthly Alcohol Habits Answer Date Recorded How often do you have a drink containing Not asked alcohol? How many drinks containing alcohol do you Not asked have on a typical day when you are drinking? How often do you have six or more drinks on Not asked one occasion? Comment: occasionally 1-2 x monthly 05/18/2019 Sex Assigned at Date Recorded Female 06/06/2021 6:48 PM EDT documented as of this encounter Medications at Time of Discharge Medication Sig Dispensed Refills Start Date End Date lisinopriL (Zestril) 2.5 mg Take 2.5 mg by mouth 0 Tablet daily. aspirin EC 325 mg Tablet, Take 1 tablet by 30 tablet 3 04/2021 Delayed Release (E.C.) mouth daily. calcium-vitamin D3 600 mg Take by mouth. 0 calcium- 400 unit Tablet ascorbic acid, vitamin C, Take 1,000 mg by 0 (VITAMIN C) 1,000 mg Tablet mouth daily. multivitamin (THERAGRAN) 0 12/04/2010 tablet documented as of this encounter Plan of Treatment Not on filedocumented as of this encounter Procedures Procedure Name Priority Date/Time Associated Diagnosis Comme nts MAMMO SCREENING CAD Routine 06/14/2022 9:09 AM Encounter for R esults for this AND JAKOB BILATERAL EDT screening mammogram pr ocedure are in for breast cancer the result s section. documented in this encounter Results Mammo Screening Cad and Jakob Bilateral (06/14/2022 9:09 AM EDT) Anatomical Region Laterality Modality Breast Bilateral Mammography Specimen (Source) Anatomical Location Collection Method / Collectio n Time Received Time / Laterality Volume Narrative 06/14/2022 10:49 AM EDT BILATERAL MAMMOGRAPHY REASON FOR EXAM: Screening TECHNIQUE: CC and MLO views were obtaine d of each breast using standard 2-D mammography as well as 3-D tomosynth esis. Computer aided detection was used. This is compared with prior images . FINDINGS: There are scattered areas of f ibroglandular density. There are no suspicious microcalcifications, jonathan s, or areas of distortion. The pattern is stable. CONCLUSION: No mammographic evidence of malignancy. RECOMMENDATION: Regular screening mammograms starting be tween age 40 and 50 reduces the risk of from breast cancer. All screening tests have both risks and benefits. These risks and benefits should be assessed for each individual p atient through discussion with their provider to determine their prefer red breast cancer screening schedule. Women should report any breast changes t o a health care provider right away. Some women, because of their family hist ory, a genetic tendency, or other factors, should be screened with annual breast MRI as well as with mammograms. (The number of women who fal l into this category is very small). Patients and health care provide rs should discuss each patient? s history to decide if earlier screening a nd/or breast MRI are appropriate. Screening should continue as long as a w ira is in good health and is expected to live 10 years or longer. Screening mammography may not detect 10- 15% of breast cancers. A result letter has been sent to this pa tient by the [facility]. BIRADS CATEGORY 1: NEGATIVE Electronically signed by: Margarita bartholomew MD Danielle Burgess MD IMG MAMMO ORDERABLES documented in this encounter Visit Diagnoses Diagnosis Encounter for screening mammogram for br east cancer documented in this encounter Care Teams Irrigator Relationship Specialty Start Date End Date Danielle Burgess MD PCP - General Family Medicine 10/12/[address] [place] [id number] documented as of this encounter
--- OUTSIDE RECORDS SUMMARY | 2022-07-26 00:34 | XMS_ITS | Encounter Summary ---
:1955 Author Organization [facility] Address [facility] [place] [address] Care Team Providers Name Role Phone NghiaboubacarClaudia APRN Primary Care Provider Encounter Details Date Type Department Care Team Description 07/23/2017 Surgery Gastroenterology at [facility] Aldo Limon, FLEXIBLE SIGMOIDOSCOPY [facility] [place] [address] [facility] [phone] [place], [place] [address] Social History Tobacco Use Types Packs/Day Years Used Date Never Smoker Smokeless Tobacco: Never Used Alcohol Use Standard Drinks/Week Comments Yes 1 (1 standard drink = 0.6 oz pure alcoho l) occasionally Alcohol Habits Answer Date Recorded How often do you have a drink containing alcohol? Not asked How many drinks containing alcohol do you have on a Not aske d typical day when you are drinking? How often do you have six or more drinks on one occasion? No t asked Comment: occasionally 12/23/2011 Sex Assigned at Date Recorded Female 06/06/2021 6:48 PM EDT documented as of this encounter Last Filed Vital Signs Vital Sign Reading Time Taken Comments Blood Pressure 147/66 07/23/2017 1:45 PM EDT Pulse 65 07/23/2017 1:45 PM EDT Temperature - - Respiratory Rate 16 07/23/2017 1:45 PM EDT Oxygen Saturation 99% 07/23/2017 1:45 PM EDT Inhaled Oxygen Concentration - - Weight - - Height - - Body Mass Index - - documented in this encounter Discharge Instructions AttachmentsThe following attachments cannot be sent through Care Everywhere. SIGMOIDOSCOPY: POST-OP (KITTITIAN)documented in this encounter Medications at Time of Discharge Medication Sig Dispensed Refills Start Date End Date multivitamin (THERAGRAN) tablet 0 /0 04/2011 documented as of this encounter H&P Notes Hiwot Patel MD - 07/23/2017 12:56 PM EDT Gastroenterology and Hepatology Pre-Procedure History and Physical Exam Procedure: flex sig Indication: personal history of TVA Patient Active Problem List Diagnosis Code ??? Asymptomatic bilateral carotid artery stenosis I65.23 EXAM: HEENT: Airway examined, oropharynx clear Mallampati Score: 2 LUNGS: Clear to auscultation HEART: Regular rate and rhythm, normal S1, S2 ABDOMEN: Normal bowel sounds, soft, non tender, non distended, A/P Proceed with the planned endoscopic procedure. ASA 2 - Patient with mild systemic disease with no functional limitations Sedation Plan: moderate (conscious sedation) Risks and benefits of the procedure explained to the patient. Consent signed. documented in this encounter Miscellaneous Notes Brief Op Note - Aldo Limon MD - 07/23/2017 2:03 PM EDT Brief Operative Note Patient Name: Sophia Montes De Oca : [id number] MR#: [id number] Case Date: 07/23/2017 Surgeon: Surgeon(s) and Role: * Aldo Limon MD - Primary * Hiwot Patel MD - Fellow Preoperative diagnosis: pt is refusing sedation High risk colon cancer surveillance: Personal history of colonic polyps Postoperative diagnosis: * No post-op diagnosis entered * Procedure(s) (LRB): FLEXIBLE SIGMOIDOSCOPY (N/A) FLEXIBLE SIGMOIDOSCOPY; W REM TUMOR/POLYP/LESION BY SNARE Please see Provation for full procedure note. (Please see the Surgical Encounter Summary for any Implant and Specimen details pertinent to this patient.) documented in this encounter Plan of Treatment Not on filedocumented as of this encounter Procedures Procedure Name Priority Date/Time Associated Comments Diagnosis SURGICAL PATHOLOGY Routine 07/23/2017 1:46 PM Res ults for this REPORT EDT procedure are i n the results section. SPECIMEN TO PATHOLOGY Routine 07/23/2017 1:46 PM Results for this EDT procedure are i n the results section. FLEXIBLE 07/23/2017 1:11 PM pt is refusing SIGMOIDOSCOPY; W REM EDT sedation TUMOR/POLYP/LESION BY High risk colon SNARE cancer surveillance: Personal history of colonic polyps FLEXIBLE SIGMOIDOSCOPY 07/23/2017 1:11 PM pt is refusi ng EDT sedation High risk colon cancer surveillance: Personal history of colonic polyps FLEXIBLE SIGMOIDOSCOPY Routine 07/23/2017 12:56 R esults for this PM EDT procedure are i n the results section. documented in this encounter Results Surgical Pathology Report (07/23/2017 1:46 PM EDT) Component Value Ref Test Analysis Performed At [facility] QCoefficient Range Method Time Signature Surgical [id number] ? Location: ; [facility]; [facility] Pathology [facility] Report The signing pathologist has (i) examined the relevant preparation(s) for the [facility] specimen(s) and (ii) rendered or confirmed the diagnosis(es) . HOSPITAL LABORATORY . ?Surgic al Pathology DIAGNOSIS Sigmoid colon, polyp 15 mm, ?? polypectomy: Tubulovillous adenoma (multiple fragments). Electronically signed by: ??Savannah Light MD Verified: ??07/28/2017 ?Pathologist Performed at: ??-[facility] Dept. of Pathology, [place], [place] CLINICAL INFORMATION Specimen Submitted: A - Polyp 15 mm SG Clinical History: Flex sig hx TVA Clinical Diagnosis: Same SPECIMEN PROCESSING A - Labeled/Fixative: Polyp 15 mm SG, formalin. Quantity/Size: Multiple, 1.3 x 1.0 x 0.9 cm aggregate. Tissue Description: Soft red-brown polyp with detached tissu e fragments. Sections/Processing: (1) mul tiple detached fragments; (2) inked and trisected polyp. (T2) ??darrius Specimen (Source) Anatomical Collection Method Collection Time Re ceived Time Location / / Volume Laterality 07/23/2017 1:46 PM EDT Aldo Limon MD PATHOLOGY/CYTOLOGY ORDERABLE S Performing Organization Address City/[facility]/[place] [address] Specimen to Pathology (surgical or derm) (07/23/2017 1:46 PM EDT) Specimen Anatomical Collection Method Collection Time Receive d Time (Source) Location / / Volume Laterality AP Specimen 07/23/2017 1:46 PM 7 1:46 EDT PM EDT Narrative [facility] - 07/23/2017 1:46 PM EDT Specimen requisition ordered. ??Separate Pathology report to follow Aldo Limon MD PATHOLOGY/CYTOLOGY ORDERABLE S Performing Organization Address City/[facility]/[place] [address] FLEXIBLE SIGMOIDOSCOPY (07/23/2017 12:56 PM EDT) Component Value Ref Test Analysis Performed Pathologis t Range Method Time At [facility] FLEXIBLE [facility] PROVATION SIGMOIDOSCOPY Endoscopy Procedure Date: 07/23/2017 12:56 PM ? Patient Name: Sophia Montes De Oca ? Date of : 1955 ? Age: 61 ? Order #: [id number] ? Instrument Name: [id number] ? Procedure: ? Flexible Sigmoidoscopy Indications: ? Personal history of colonic polyps Providers: ? Aldo Limon, Derek Mathis, RN, ? Bernard Urias Referring MD: ?Claudia Perez Medicines: ? None Complications: ? No immediate complications. Procedure: ? Pre-Anesthesia Assessment: ? - Prior to the procedure, a H istory ? and Physical was performed, a nd ? patient medications, allergie s and ? sensitivities were reviewed. The ? patient's tolerance of previo us ? anesthesia was reviewed. ? - The risks and benefits of t he ? procedure and the sedation op tions ? and risks were discussed with the ? patient. All questions were a nswered ? and informed consent was obta ined. ? The procedure, indications, b enefits, ? risks and alternatives were e xplained ? to the patient. Specifically ? discussed were potential ? complications including, but not ? limited to, bleeding, perfora tion, ? infection, missing a cancer, and ? adverse medication reactions. The ? patient was placed in the lef t ? lateral decubitus position, a nd a ? digital rectal exam was perfo rmed. ? The Colonoscope was inserted in the ? anus and under direct visuali zation, ? advanced to the sigmoid colon . ? Careful inspection was made a s the ? scope was withdrawn. The flex ible ? sigmoidoscopy was accomplishe d ? without difficulty. The patie nt ? tolerated the procedure well. The ? quality of the bowel preparat ion was ? excellent. ? Findings: ? The perianal and digital rectal examinations were ? normal. ? A 15 mm polyp was found in the recto-sigmoid colon. ? The polyp was sessile. The polyp was removed with a ? hot snare. Resection and retrieval were complete. ? A few small-mouthed diverticula were found in the ? sigmoid colon. ? Moderate Sedation: ? Patient refused medication, requested procedure ? without sedation medication. Impression: ?- One 15 mm polyp at the ? recto-sigmoid colon at 20cm a djacent ? to tattoo site, removed with a hot ? snare in piecemeal fashoin, e dges ? obliterated with tip of josé jackson. ? Resected and retrieved. ? - Diverticulosis in the sigmo id colon. ? - Exam to 35cm only. Recommendation: ?- Await pathology results. ? - Full colonoscopy in 1 year for ? surveillance based on patholo gy ? results (prior history of TVA ). ? - No aspirin, ibuprofen, napr oxen, or ? other non-steroidal anti-infl ammatory ? drugs for 7 days after polyp removal. ? Attending Participation: ? I was present and participated during the entire ? procedure, including non-landon portions. ? Aldo Lao Limon, 07/23/2017 1:51:14 PM Number of Addenda: 0 Note Initiated On: 07/23/2017 12:56 PM Specimen (Source) Anatomical Collection Method Collection Time Re ceived Time Location / / Volume Laterality 07/23/2017 12:56 PM EDT Claudia Perez APRN GENERAL SURGICAL ORDERABLES Performing Organization Address City/State/ZIP Code Phon e Number [employer]OVATION documented in this encounter Visit Diagnoses Not on filedocumented in this encounter Active and Recently Administered Medications Care Teams Weight Loss Centre Manager Relationship Specialty Start Date End Date Claudia Perez APRN PCP - General 05/05/15 05/13/19 documented as of this encounter
--- OUTSIDE RECORDS SUMMARY | 2022-07-26 00:34 | XMS_ITS | Encounter Summary ---
:1955 Author Organization [facility] [place] [address] Care Team Providers Name Role Phone Claudia Perez Cassidy GALEANO Primary Care Provider Reason for Visit Reason Comments Blurred Vision Encounter Details Date Type Department Care Team Description 11/21/2017 Office Visit Ophthalmology at [facility] Bernard Aguilar Cataract, unspecified catara ct type, unspecified laterality; [facility] MD Dian Irregular astigmatism of [place] [address] CENTER [phone] OPHTHALMOLOGY DEPT. [place], [place] [address] Social History Tobacco Use Types [...] PM EDT documented as of this encounter Patient Instructions Patient InstructionsBernard Robertson MD - 11/21/2017 3:15 PM EST Use eye medications as instructed by Dr. Robertson during your appointment. For non eye medications not prescribed by the Ophthalmology (Eye) Clinic, please follow up with yourPCP (primary care provider) for instructions. Please call the eye clinic, , for any significant changes in vision, new flashes or floaters or eye pain Eye safety is important: please use eye protection during any activities in which you could injury your eyes. documented in this encounter Progress Notes Bernard Robertson MD - 11/21/2017 3:15 PM EST Encounter Diagnoses Name Primary? Cataract, unspecified cataract type, unspecified laterality ??? Irregular astigmatism of both eyes Sophia Montes De Oca is a 62 y.o. with the following ophthalmic problems: Irregular astigmatism OD>OS: This may be the cause of her visual complaints given that her cataracts are very mild. She has worn CL in past and I suggested that she follow up with her local provider relations specialist to see if this improves the clarity of her vision. She does not have corneal thinning or previousrefractive surgery so I don't think this represents progressive ectasia of the cornea Cataracts: mild follow ERM OU: seen by Dr. Hayward, no surgery indicated at this time Plan: - as above - Follow up 1 year or as needed - Findings and concerns discussed with Sophia and she expressed understanding. -Upon Return CEE with Pentacam documented in this encounter Plan of Treatment Not on filedocumented as of this encounter Procedures Procedure Name Priority Date/Time Associated Diagnosis Comme nts PENTACAM - CLINIC - Routine 11/21/2017 4:45 PM Irregular Re sults for this OU - BOTH EYES EST astigmatism of both proced ure are in eyes the results section. documented in this encounter Results PENTACAM - OU- BOTH EYES (11/21/2017 4:45 PM EST) Anatomical Region Laterality Modality Other Specimen (Source) Anatomical Location Collection Method / Collectio n Time Received Time / Laterality Volume Narrative 11/21/2017 4:45 PM EST Indication: evaluation of cornea topography OD: irregular astig with Km of 46.2, Cpa adria of 563 um prominent area of focal elevation in para central area on back elevation map OS: minimally irregular astigmatism with Km of 46 and Cpachy of 572, prominent area of focal elevation in par a central area on back elevation map Implication: Mild irregular astigmatism worse OD than OS. Bernard Robertson MD OPHTHALMOLOGY SERVICES ORDER JESSICA documented in this encounter Visit Diagnoses Diagnosis Cataract, unspecified cataract type, uns pecified laterality Irregular astigmatism of both eyes Irregular astigmatism documented in this encounter Care Teams Reconstructive Dentist Relationship Specialty Start Date End Date Claudia Perez, W[place] PCP - General 05/05/15 05/13/19 documented as of this encounter
--- OUTSIDE RECORDS SUMMARY | 2022-07-26 00:34 | XMS_ITS | Encounter Summary ---
:1955 Author Organization [facility] Address [address] [place] [address] Care Team Providers Name Role Phone Janasarah Anita WALESKA Primary Care Provider Encounter Details Date Type Department Care Team Description 06/02/2020 Hospital Encounter Mammography/DXA at [facility] , Encounter for [facility] [employer] [employer] screening mammogram [address] [id number] [phone] Social History Tobacco Use Types Packs/Day Years [...] Sig Dispensed Refills Start Date End Date calcium-vitamin D3 600 mg Take by mouth. 0 calcium- 400 unit Tablet ascorbic acid, vitamin C, Take 1,000 mg by 0 (VITAMIN C) 1,000 mg Tablet mouth daily. multivitamin (THERAGRAN) 0 12/04/2010 tablet documented as of this encounter Plan of Treatment Not on filedocumented as of this encounter Procedures Procedure Name Priority Date/Time Associated Diagnosis Comme nts MAMMO SCREENING CAD Routine 06/02/2020 1:46 PM Encounter for R esults for this AND JAKOB BILATERAL EDT screening mammogram pr ocedure are in for breast cancer the result s section. documented in this encounter Results Mammo Screening Cad and Jakob Bilateral (06/02/2020 1:46 PM EDT) Anatomical Region Laterality Modality Breast Bilateral Mammography Specimen (Source) Anatomical Location Collection Method / Collectio n Time Received Time / Laterality Volume Narrative 06/04/2020 1:46 PM EDT BILATERAL MAMMOGRAPHY REASON FOR EXAM: f/u 9.6.19 TECHNIQUE: CC and MLO views were obtaine d of each breast using standard 2-D mammography as well as 3-D tomosynthesis . Computer aided detection was used. Comparison: This is compared with prior images. FINDINGS: There are scattered areas of f ibroglandular density. There are no suspicious microcalcifications, masses, or areas of distortion. The pattern is stable. Stable benign-appearing bilatera l focal asymmetries. CONCLUSION: No mammographic evidence of malignancy. RECOMMENDATION: Routine screening. A result letter has been sent to this pa perri by [facility]. BIRADS CATEGORY 2: Benign findings. * ??Regular screening mammograms startin g between age 40 and 50 reduces the risk of from breast cancer. * ??All screening tests have both risks and benefits. These risks and benefits should be assessed for each individual p atient through discussion with their provider to determine their preferred east cancer screening schedule. * ??Women should report any breast guy es to a health care provider right away. * ??Some women, because of their family history, a genetic tendency, or other factors, should be screened with annual breast MRI as well as with mammograms. (The number of women who fall into this category is very small). Patients and health care providers should discuss eac h patients history to decide if earlier screening and/or breast MRI are appropri ate. * ??Screening should continue as long as a woman is in good health and is expected to live 10 years or longer. * ??Screening mammography may not detect 10-15% of breast cancers. Thank you for letting us participate in the care of this patient. For questions regarding this report, please contact e number below. ? Anita Lea APRN IMG MAMMO ORDERABLES documented in this encounter Visit Diagnoses Diagnosis Encounter for screening mammogram for br east cancer documented in this encounter Care Teams Client Evaluator Relationship Specialty Start Date End Date Anita Lea APRN PCP - General Family Medicine 05/14/19 10/11/[address] [place] [address] documented as of this encounter
--- OUTSIDE RECORDS SUMMARY | 2022-07-26 00:34 | XMS_ITS | Encounter Summary ---
:1955 Author Organization [facility] [place] [address] Care Team Providers Name Role Phone Claudia Perez APRN Primary Care Provider Encounter Details Date Type Department Care Team Description 10/21/2018 Telephone Gastroenterology at [facility] [place] [address] Social History Tobacco Use Types Packs/Day Years [...] PM EDT documented as of this encounter Miscellaneous Notes Telephone Encounter - Anne Theodore - 10/21/2018 3:42 PM EST Per in basket from Dr. 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
--- OUTSIDE RECORDS SUMMARY | 2022-07-26 00:34 | XMS_ITS | Encounter Summary ---
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 and I agree with the details as written. The assessment and plan were formulated in discussion with me, and I agree with them as documented. Patient understands and accepts our plan. 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 MRI brain was non-specific in Jun. She was given ONBs in Jul. We obtained CTA which did not confirm the bilateral carotid stenoses, EEG, was nl. ONBs worked for 31/2 weeks, much improved. The HAs then returned to baseline. Imp: NDPH Plan: ONBs were repeated at this appointment. We referred her for PT, consider TPIs. She wanted to hold off on preventive rx. We ordered MRI Cspine due to bilateral hand paresthesias. Christiano Laura MD documented in this encounter Plan of Treatment Scheduled Orders Name Type Priority Associated Diagnoses Order S chedule NERVE BLOCK - Neurology Routine One Time for 1 OCCIPITAL Occurrences sta rting 10/12/2021 unti l 10/12/2021 Scheduled Referrals Name Type Priority Associated Diagnoses Order S chedule Referral to Outpatient Referral Routine Neck pain Ordered: Physical Therapy 10/12/2021 documented as of this encounter Results MRI Cervical Spine wo Contrast (Generic) (10/20/2021 2:16 PM EST) Anatomical Region Laterality Modality C-spine Magnetic Resonance Specimen (Source) Anatomical Location Collection Method / Collectio n Time Received Time / Laterality Volume Impressions 10/20/2021 8:31 PM EST 1. ??Minimal contouring of the ventral spinal cord by a disc bulge at C5-C6 with no cord compression. 2. ??Moderate to severe right and modera te left neural foraminal stenosis at C6-7 and moderate neural foraminal stenosis b ilaterally at C5-C6. 3. ??Additional degenerative changes as discussed. Thank you for letting us participate in the care of this patient. ??If you are a health care provider and have any questi ons regarding this report, please contact the number below. ??For patients who have questions please contact the health day care director that requested your imaging first. ? Narrative 10/20/2021 8:31 PM EST EXAMINATION: MRI CERVICAL SPINE WO CONTRAST (GENERIC) CLINICAL HISTORY: Neck pain, initial exa m; Cervical radiculopathy new onset neck and arm pain bilaterally TECHNIQUE: MRI of the cervical spine performed with out intravenous contrast administration. COMPARISON: None FINDINGS: The vertebral bodies are maintained in h eight. No subluxation. No marrow edema. Moderate degenerative changes are presen t at C5-6 and C6-7 with decreased T2 bright signal, decreased disc height, mi nimal reactive endplate changes and osteophyte formation. Mild degenerative changes at the additional cervical levels with mild loss of T2 bright disc signal. The cervical spinal cord is normal in signal. The visualized portion s of the brain are within normal limits. C2-3: No significant spinal canal or for aminal stenosis. C3-4: Minimal disc bulge with no signifi cant spinal canal stenosis. Bilateral uncovertebral arthropathy. No significan t neural foraminal stenosis bilaterally. C4-5: Mild disc bulge with no significan t spinal canal or foraminal stenosis. C5-6: Disc bulge which narrows the ventr al CSF space and minimally contours the ventral spinal cord without cord andra pramod. Mild dorsal ligamentous buckling. Bilateral uncovertebral arthropathy with moderate bilateral neural foraminal stenosis. C6-7: Disc osteophyte complex which narr ows the ventral CSF space without contacting or distorting the spinal cord . Bilateral uncovertebral arthropathy right greater than left. Moderate to sev ere right and moderate left neural foraminal stenosis. C7-T1: No significant spinal canal or fo raminal stenosis. Procedure Note Delia Reynoso MD - 10/20/2021Formatting o f this note might be different from the original. EXAMINATION: MRI CERVICAL SPINE WO CONTR AST (GENERIC) CLINICAL HISTORY: Neck pain, initial exa m; Cervical radiculopathy new onset neck and arm pain bilaterally TECHNIQUE: MRI of the cervical spine performed with out intravenous contrast administration. COMPARISON: None FINDINGS: The vertebral bodies are maintained in h eight. No subluxation. No marrow edema. Moderate degenerative changes are presen t at C5-6 and C6-7 with decreased T2 bright signal, decreased disc height, mi nimal reactive endplate changes and osteophyte formation. Mild degenerative changes at the additional cervical levels with mild loss of T2 bright disc signal. The cervical spinal cord is normal in signal. The visualized portion s of the brain are within normal limits. C2-3: No significant spinal canal or for aminal stenosis. C3-4: Minimal disc bulge with no signifi cant spinal canal stenosis. Bilateral uncovertebral arthropathy. No significan t neural foraminal stenosis bilaterally. C4-5: Mild disc bulge with no significan t spinal canal or foraminal stenosis. C5-6: Disc bulge which narrows the ventr al CSF space and minimally contours the ventral spinal cord without cord andra pramod. Mild dorsal ligamentous buckling. Bilateral uncovertebral arthropathy with moderate bilateral neural foraminal stenosis. C6-7: Disc osteophyte complex which narr ows the ventral CSF space without contacting or distorting the spinal cord . Bilateral uncovertebral arthropathy right greater than left. Moderate to sev ere right and moderate left neural foraminal stenosis. C7-T1: No significant spinal canal or fo raminal stenosis. IMPRESSION 1. Minimal contouring of the ventral spi nal cord by a disc bulge at C5-C6 with no cord compression. 2. Moderate to severe right and moderate left neural foraminal stenosis at C6-7 and moderate neural foraminal stenosis b ilaterally at C5-C6. 3. Additional degenerative changes as di scussed. Thank you for letting us participate in the care of this patient. If you are a health care provider and have any questi ons regarding this report, please contact the number below. For patients w ho have questions please contact the health day care director that requested your imaging first. Eleazar Genao MD IMG MRI ORDERABLES documented in this encounter Visit Diagnoses Diagnosis Neck pain Cervicalgia Radiculopathy of cervical region Brachial neuritis or radiculitis nos Radiculopathy of cervical region Brachial neuritis or radiculitis nos documented in this encounter Administered Medications Inactive Administered Medications - up to 3 most recent administrations Medication Order MAR Action Action Date Dose Rate Site BUpivacaine (pf) Given 10/12/2021 11:18 AM 7.5 mg 20-Other (document (Marcaine) (2.5 mg/mL) EST in comment section) 0.25% injection 7.5 mg 7.5 mg, Subcutaneous, ONCE, 1 dose, On Fri10/12/21 at 1145, Routine lidocaine (Xylocaine) 1% Given 10/12/2021 11:18 AM EST 30 mg 20-Other (document in (10 mg/mL) injection 30 mg comment section ) 30 mg (3 mL), Subcutaneous, ONCE, 1 dose, On Fri10/12/21 at 1145, Routine documented in this encounter Care Teams Spring Crater Relationship Specialty Start Date End Date Danielle Burgess MD PCP - General Family Medicine 10/12/[address] [place] [address] documented as of this encounter
--- OUTSIDE RECORDS SUMMARY | 2022-07-26 00:34 | XMS_ITS | Encounter Summary ---
:1955 Author Organization [facility] [place] [address] Care Team Providers Name Role Phone JesemichelleClaudia APRN Primary Care Provider Reason for Visit Reason Comments Eye Problem Possible ERM Consultation (Routine) - Closed Specialty Diagnoses / Procedures Referred By Contact Refer red To Contact Ophthalmology Diagnoses macula consult Marlene Estrada, OD Melecio Hayward MD [address] [facility] [address] [place] [address] [place] [address] Phone: Fax: Referral ID Status Reason Start Date Expiration Date Visits V isits Requested Authorized [id number] Closed Consult, 04/30/2017 04/30/2018 1 1 Test & Treat Encounter Details Date Type Department Care Team Description 08/29/2017 Office Visit Ophthalmology at [facility] Melecio Hayward, Combined forms of age-relate d cataract of both eyes; [facility] [place] [address] [facility] [phone] OPHTHALMOLOGY DEPT [place], [place] [address] Social History Tobacco Use Types [...] PM EDT documented as of this encounter Progress Notes Melecio Hayward MD - 08/29/2017 3:15 PM EST ASSESSMENT: 1. Combined forms of age-related cataract of both eyes 2. Visual disturbance Referred by Dr. Estrada for ERM OU/Hx of dry AMD OD Patient reports she has intermittent headaches and her vision looks like she's staring through a glass of water She feels these symptoms have been overall stable over the past 6-9 months. Exam/Findings Today 08/29/17: OD: Vision 20/30, trace cellophane ERM, mild cataract, normal peripheral retina OS: Vision 20/25, trace cellophane ERM, mild cataract, normal peripheral retina PLAN: I cannot explain her headaches/blury vision from her retina exam today. I can see a mild ERM on clinical exam, but OCT is normal with good foveal contour. She would like a referral to a cataract surgeon for a cataract evaluation. Follow up next available any [facility] cataract MD for formal cat eval. Retina PRN The Ophthalmology scribe for this encounter is Everett Schumacher, OSC I performed and personally participated in the landon and critical portions of the service. I have reviewed/updated the documentation, and confirm that all of the information is accurate as described. Melecio Hayward MD documented in this encounter Plan of Treatment Not on filedocumented as of this encounter Procedures Procedure Name Priority Date/Time Associated Diagnosis Comme nts OCT RETINA - OU - Routine 08/29/2017 4:48 PM Combined forms of Results for this BOTH EYES EST age-related cataract procedu re are in of both eyes the results Visual disturbance section. documented in this encounter Results OCT [id number] EYES (08/29/2017 4:48 PM EST) Anatomical Region Laterality Modality Other Specimen (Source) Anatomical Location Collection Method / Collectio n Time Received Time / Laterality Volume Narrative 08/29/2017 4:48 PM EST Right Eye Quality was good. Scan locations include d subfoveal. Findings include normal observations, normal foveal conto ur. Left Eye Quality was good. Scan locations include d subfoveal. Findings include normal observations, normal foveal conto ur. Melecio Hayward MD OPHTHALMOLOGY SERVICES ORDER JESSICA documented in this encounter Visit Diagnoses Diagnosis Combined forms of age-related cataract o f both eyes Other and combined forms of senile catar act Visual disturbance Unspecified visual disturbance documented in this encounter Care Teams Culinary Intern Relationship Specialty Start Date End Date Claudia Perez, COMMERCIAL PEST CONTROL TECHNICIAN PCP - General 05/05/15 05/13/19 documented as of this encounter
--- OUTSIDE RECORDS SUMMARY | 2022-07-26 00:34 | XMS_ITS | Encounter Summary ---
:1955 Author Organization [facility] [place] [address] Care Team Providers Name Role Phone Anita Lea APRN Primary Care Provider Encounter Details Date Type Department Care Team Description 08/12/2019 Orders Only Vascular Surgery at [facility], Swapnil symptomatic bilateral [facility] ADULT EDUCATION MANAGER carotid artery [facility] [place] [phone] Social History Tobacco Use Types Packs/Day Years [...] PM EDT documented as of this encounter Plan of Treatment Not on filedocumented as of this encounter Visit Diagnoses Diagnosis Asymptomatic bilateral carotid artery st enosis Occlusion and stenosis of multiple and b ilateral precerebral arteries without mention of cerebral infarction documented in this encounter Care Teams Field Worker Relationship Specialty Start Date End Date Anita Lea APRN PCP - General Family Medicine 05/14/19 10/11/[address] [place] [address] documented as of this encounter
--- OUTSIDE RECORDS SUMMARY | 2022-07-26 00:34 | XMS_ITS | Encounter Summary ---
:1955 [place] [address] Care Team Providers Name Role Phone Anita Lea APRN Primary Care Provider Reason for Visit Consultation (Routine) - Closed Specialty Diagnoses / Procedures Referred By Contact Refer red To Contact Neurology Diagnoses Other complicated headache syndrome HEADACHE Anita Lea APRN [facility] Neurology [address] [place], [place] [address] [address] [place] [address] Fax: Referral ID Status Reason Start Date Expiration Date Visits V isits Requested Authorized [id number] Closed Consult, Test 07/13/2021 07/13/2022 [facility] PCP Updated and/or Approved Encounter Details Date Type Department Care Team Description 08/06/2021 Office Visit Neurology at [facility] New daily persistent headache (ndph); Jimy Alarcon MD Asymptomatic bilateral carotid artery st enosis [address] [place] [address] NEUROLOGY [phone] [place], [place] [address] Social History Tobacco Use Types [...] Sign Reading Time Taken Comments Blood Pressure 138/66 08/06/2021 7:40 AM EST Pulse 69 08/06/2021 7:40 AM EST Temperature - - Respiratory Rate - - Oxygen Saturation - - Inhaled Oxygen Concentration - - Weight 69.8 kg (153 lb 12.8 oz) 08/06/2021 7:40 AM EST Height 165.1 cm (5' 5) 08/06/2021 7:40 AM EST reported Body Mass Index 25.59 08/06/2021 7:40 AM EST documented in this encounter Patient Instructions Patient InstructionsTomaEleazar cabrera MD - 08/06/2021 8:00 AM EST Office Number: ([facility] [place]) Clinic nurse number for most issues and prescription refills My Nurse: Lashawn Guerrero RN For Prescription Refills: Please call for refills when you have one month left on your medication, we have 48 hours from the time you call to get the medication refill placed. Please call the clinic rather then using - or e-mail, as the communication is better in real time. Thank you and I look forward to working with you. Book: Understanding Your Migraines: A Guide for Patients and Families 1st Edition by Van Glasgow and Raza Horton Keep your Calendar and bring them to your appointment please. Apps: Migraine Gonzalez I Headache Diagnosis: New Daily Persistent Headaches, rule out secondary cause Plan: EEG to rule out occipital seizure CTA head and neck Obtain MRI from [facility] Daily Asprin 325mg daily Occipital Nerve Blocks Follow-up with Dr. Genao in one month documented in this encounter Progress Notes Eleazar Genao MD - 08/06/2021 8:00 AM EST [facility] Headache Clinic Consultation Dear Anita Lea APRN [address] [place] [address] Thank you for your referral on Sophia Banegas for assessment of headaches. Patient's primary care provider: Anita Lea APRN It was my pleasure to evaluate Sophia Banegas in the headache clinic. Sophia Banegas is a 65 y.o., right handed female with a PMH of cervicalgia C5/C6, hearing loss, bilateral carotid stenosis, palpitation, tubular adenoma of colon, HTN from: [address] [place] [id number] [place] They were seen in the outpatient Neurology Headache Clinic at [facility] on 08/06/2021. They presented for today's assessment alone. History of Presenting Illness: Sophia Banegas has had recurrent roughly stereotyped headaches since the 07 of June. Patient was at [facility] when she noted to have a right [...] done. At that time she called her Procurement Agent and was told this may be occularmigraine. Approximately 2 weeks later, she had another similar episode with slightly differentnt shapes, again lasting 8-10 minutes towards the end of the day. After this episode she felt tired again and went to sleep for 10 hours. Usually she sleeps 7 hours. She again called her Procurement Agent who referred her to an stake driver who tested her eyes and was told [...] numbness, weakness or other ne urological symptoms. Reports that she has had some sort of head pain ever since the onset on June 07. She typicallyhas head pain at the vertex of the head which is a pressure type pain. This is typically 3/10 but will increase to 7/10 at times. Additionally she complains of a sharp/stabbing quick pain lasting 1-3 seconds long, starting in the christianity and moving towards the back of the eye. It tends to be more on the right side but can be both. Denies it to be a knife/ice pick like. This pain is not reproducible. She reports having neck pain since September of 2018 that involves the occipital region as well. 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 She reports the pain will flair up towards the frontal region if she does not do her exercises. Headache Description: Current Headache Frequency: daily and continuous with 3 exacerbations per week Headache Days per month: 30/30 Headache free days per month: 0/30 Location of pain: Vertex of head Radiation:to [...] day predilection: Yes, towards end of day Associated Features: Nausea, Anorexia and Photophobia There [...] the morning, few diet cokes in afternoon History of: Head injury: No Neck injury: No BATCH BLENDER infections: No Seizure: No Anxiety: History of [...] Physical, or Sexual: Yes and Received Counseling Other pertinent past medical history: No The patient has the following vascular risk factors: Hypertension The patient has the following vascular co morbidities: None Family History of Headaches: adopted, knows mother but not aware of headaches in family Other potentially contributing Family History: Non-contributory Other Pertinent Details: Systemic or constitutional or [...] with Papilloedema: No or Lisa partem: No Assessment by other Physicians: Primary Care, Procurement Agent and Outdoor Adventure Instructor I reviewed your referral ducument and accompanying notes. Investigations to Date: MRI beto at [facility] 07/02/21: non specific white matter changes, atrophy. Lumbar Puncture: No Last eye exam: 11/21/2017: irregular astigmatism right>left, mild cataracs Blood work: Yes No results found for: HGB, WBC, PLATELET, BUN, CREATININE, NA, CL, CO2, ALT, AST, GGT, SEDRATE, CRP,WILBERT, PR3AB, MYELOP, [id number], TSH, CALCIUM, CAWBION Current Headache Medications: Acetaminophen - will take approximately 2-3 times per week Lisinopril 2.5mg Medications Tried ([x] checked have been tried in the past) Acute Treatments: Ergotamines: [] Dihydroergotamine nasal spray (Migranal) [] Dihydroergotamine solution for injection (DHE-45) [] Ergotamine/caffeine tab (Cafergot) [] Ergotamine/caffeine suppository (Migergot) [] Methergine [] Methylsergide (Sansert) Triptans: [] Sumatriptan (Imitrex) PO [] Sumatriptan (Imitrex) NS [] Sumatriptan (Imitrex) SQ injection [] Sumatriptan (Onzetra) Nasal powder [] Sumatriptan/Naproxen (treximet) [] Eletriptan (Relpax) [] Zomig nasal spray [] Zolmitriptan (Zomig) [] Rizatriptan (Maxalt) [] Almotriptan (Axert) [] Naratriptan (Amerge) [] Frovatriptan (Frova) Ditan: [] Lasmiditan (Reyvow) 2nd Generation gPANTS: [] Ubrelvy (Ubrogepant) [] Nurtec (Remigepant) NSAIDS: [] Aspirin [] Celecoxib (Celebrex) [] Diclofenac potassium [] Ibuprofen (Advil) [] Indomethacin [] Ketoprofen [] Ketorolac (Toradol) [] Meloxicam (Mobic) [] Nabumetone [] Naproxen sodium (Aleve) [] Acetaminophen (tylenol) Combination Analgesics: [] Acetaminophen/aspirin/caffeine (Excedrin/Pamprin) [] Acetaminophen/caffeine/pyrilamine maleate (Midol) [] Acetaminophen/dichloralphenazone/isometheptene (Midrin) [] Butalbital/aspirin/caffeine/codeine (Fiorinal with codeine) [] Butalbital/Aspirin/Caffeine (Fiorinal) [] Butalbital/acetaminophen/caffeine (Fioricet) Anti-Histamines: [] Cyproheptadine (Periactin) [] Diphenhydramine (Benadryl) [] Hydroxyzine (vistaril/atarax) Muscle relaxers: [] Baclofen (lioresal) [] Cyclobenzaprine (flexeril) [] Metaxalone (skelaxin) [] Methocarbamol (robaxin) [] Tizanidine (zanaflex) Anti-emetics: [] Aprepitant (Emend) [] Granisetron [] Metoclopramide (Reglan) [] Ondansetron (Zofran) [] Meclizine (Bonine) [] Prochlorperazine (compazine) [] Promethazine (Phenergan) [] Chlorpromazine (thorazine) Steroids: [] Dexamethasone (decadron) [] Prednisone Benzodiazepines: [] Alprazolam (Xanax) [] Chlordiazepoxide (Librium) [] Clonazepam (Klonopin) [] Diazepam (Valium) [] Lorazepam (Ativan) [] Temazepam (Restoril) Opioids/Narcotics/Controlled Substances: [] Acetaminophen/Hydrocodone (Acton/Vicodin) [] Butorphanol (Ketamine/Stadol) [] Fentanyl [] Hydrocodone [] Hydromorphone (Dilaudid) [] Marijuana [] Morphine (MS Contin) [] Oxycodone [] Oxycodone/Acetaminophen (Percocet) [] Tramadol (Ultram) [] Zolpidem (Ambien) Prevention Treatments: Anti-seizure: [] Acetazolamide (Diamox) [] Carbamazepine (Tegretol) [] Clobazam (Onfi) [] Gabapentin (Neurontin) [] Lamotragine (Lamictal) [] Levetiracetam (Keppra) [] Oxcarbazepine (Trileptal) [] Phenobarbital [] Phenytoin (Dilantin) [] Pregabalin (Lyrica) [] Primidone [] Sodium Valproate (Depakote) [] Topiramate (Topamax) [] Zonisamide (Zonegran) Anti-Depressants: SSRI: [] Citalopram (Celexa) [] Escitalopram (Lexapro) [] Fluvoxamine (Luvox) [] Fluoxetine (Prozac) [] Sertraline (Zoloft) [] Paroxetine (Paxil) SNRI: [] Desvenlafaxine (Pristiq/Khedezla) [] Duloxetine (Cymbalta) [] Venlafaxine (Effexor) [] Milnacipran (Savella) [] Levomilnacipran (Fetzima) TCA: [] Amitriptyline (Elavil) [] Amoxapine [] Clomipramine (Anafranil) [] Desipramine (Norpramin) [] Doxepin (Sinequan) [] Imipramine (Tofranil) [] Maprotiline (Ludiomil) [] Nortriptiline (Pamelor) [] Protriptyline (Vivactil) [] Trimipramine (Surmontil) MAOI: [] Phenelzine (Nardil) [] Selegiline (Emsam) [] Tranylcypromine (Parnate) Atypicals: [] Bupropion (Wellbutrin) [] Mirtazapine (Remeron) [] Nefazodone (Serzone) [] Trazodone [] Vilazodone (Viibryd) [] Vortioxetine (Trintellix) Anti-Hypertensives: KATHI Inhibitors: [] Benazepril (Lotensin) [] Captopril [] Enalapril (Vasotec) [] Fosinopril [x] Lisinopril (Prinivil) [] Moexipril [] Perindopril (Aceon) [] Quinapril (Accupril) [] Ramipril (Altace) [] Trandolapril (Mavik) Angiotensin II Receptor Blockers: [] Azilsartan (Edarbi) [] Candesartan (Atacand) [] Eprosartan [] Irbesartan (Avapro) [] Losartan (Cozaar) [] Olmesartan (Benicar) [] Telmisartan (Misardis) [] Valsartan (Diovan) Beta Blockers [] Acebutolol (Sectral) [] Atenolol (Tenormin) [] Bisoprolol (Zebeta) [] Metoprolol (Lopressor) [] Nadolol (Cogard) [] Nebivolol (Bystolic) [] Propranolol (Inderal) [] Timolol Calcium Channel Blockers: [] Amlodipine (Norvasc) [] Bepridil (Vascor) [] Diltiazem (Cardiazem) [] Felodipine (Plendil) [] Nicardipine (Cardene) [] Nifedipine (Procardia) [] Nisoldipine (Sular) [] Verapamil Alpha-1 Blockers [] Doxazosin [] Prazosin [] Tetrazosin Diuretics: [] Furosemide (Lasix) [] Hydrochlorothiazide (Microzide) [] Spironolactone (Aldactone) Monoclonal Antibodies: [] Erenumab (Aimovig) [] Fgremanezumab (Ajovy) [] Galcanezumab (Emgality) [] Eptinezumab (Vyepti) 2nd Generation gPANTS: [] Nurtec (Remigepant) Other Headache Management: [] Doxycycline [] Memantine (Namenda) [] Montelukast (Singulair) [] OnabotulinumtoxinA (Botox) Supplements: [] Butterbur [] Coenzyme Q10 [] Feverfew [] Magnesium [] Melatonin [] Vit. B2 (riboflavin) Procedures: [] Auriculotemporal blocks [] Lumbar puncture [] Occipital nerve blocks [] Sphenopalatine ganglion blocks [] Supraorbital blocks [] Trigger point injections Neuromodulation: [] Cefaly [] nVNS/Gammacore [] Nerivio Migra [] Spring TMS [] Relivion Non-pharmacologic Tx [] Acupuncture [] Acupressure [] Biofeedback [] Glass Driller [] Cognitive Behavioral Therapy [] Massage therapy [] Physical therapy [] Craniosacral therapy [] Daith piercing The patient's current medications, allergies, past medical history, past surgical history, family history, and social history were reviewed in the electronic medical record and with the patient during the encounter. Information from electronic medical record Current Outpatient Medications on File Prior to Visit Medication Sig Dispense Refill ??? lisinopriL (Zestril) 2.5 mg Tablet Take 2.5 mg by mouth daily. ??? calcium-vitamin D3 600 mg calcium- 400 unit Tablet Take by mouth. ??? ascorbic acid, vitamin C, (VITAMIN C) 1,000 mg Tablet Take 1,000 mg by mouth daily. ??? multivitamin (THERAGRAN) tablet No current facility-administered medications on file prior to visit. Allergies Allergen Reactions ??? Preparation H [Phenyleph-Shark Ppn-Fmxj-Sas] Rash ??? [place] Butter CIS - Rash, CIS - Rash, [...] Nausea,Vomiting,cramps,diarrhea ??? Help [Unclassified Drug] 'some antibiotic' Patient Active Problem List Diagnosis Code ??? Asymptomatic bilateral carotid artery stenosis I65.23 ??? History of palpitations Z87.898 ??? Cervicalgia M54.2 ??? Hearing loss H91.90 ??? Herpes zoster B02.9 ??? Osteoarthrosis M19.90 Past Medical History: No date: Arthritis No date: Cardiac disease No date: Tick bites Past Surgical History: Procedure Laterality Date ??? BREAST BIOPSY Right 2006 b9 ??? PRO COLONOSCOPY, BIOPSY N/A 11/07/2017 COLONOSCOPY FLEXIBLE, WITH BX (WRVU 3.66) performed by Aldo Limon MD at [facility] ??? PRO COLONOSCOPY, DIAGNOSTIC N/A 07/13/2015 COLONOSCOPY, DIAGNOSTIC performed by Anais Renner MD at [facility] ??? PRO COLONOSCOPY, DIAGNOSTIC N/A 05/18/2019 COLONOSCOPY, DIAGNOSTIC performed by Wade Rivera MD at [facility] ??? PRO COLONOSCOPY, DIAGNOSTIC N/A 05/08/2021 COLONOSCOPY, DIAGNOSTIC performed by Wade Rivera MD at [facility] ??? PRO COLONOSCOPY, REMV LESN, SNARE 12/23/2011 COLONOSCOPY, POLYPECTOMY, REMOVAL LESION BY SNARE performed by LENNOX CLARK at [facility] ??? PRO COLONOSCOPY, REMV LESN, SNARE N/A 07/13/2015 COLONOSCOPY, POLYPECTOMY, REMOVAL LESION BY SNARE performed by Anais Renner MD at [facility] ??? PRO SIGMOIDOSCOPY, BIOPSY 12/23/2012 SIGMOIDOSCOPY, FLEXIBLE; WITH BIOPSY, SINGLE OR MULTIPLE performed by Lennox Clark [facility] ??? PRO SIGMOIDOSCOPY, DIAGNOSTIC 12/23/2012 FLEXIBLE SIGMOIDOSCOPY performed by Lennox Clark MD at [facility] ??? PRO SIGMOIDOSCOPY, DIAGNOSTIC 07/06/2013 FLEXIBLE SIGMOIDOSCOPY performed by Lennox Clark MD at [facility] ??? PRO SIGMOIDOSCOPY, DIAGNOSTIC 07/12/2014 FLEXIBLE SIGMOIDOSCOPY performed by Lennox Clark MD at [facility] ??? PRO SIGMOIDOSCOPY, DIAGNOSTIC N/A 07/15/2016 FLEXIBLE SIGMOIDOSCOPY performed by Lennox Clark MD at [facility] ??? PRO SIGMOIDOSCOPY, DIAGNOSTIC N/A 07/23/2017 FLEXIBLE SIGMOIDOSCOPY performed by Aldo Limon MD at [facility] ??? PRO SIGMOIDOSCOPY, DIAGNOSTIC N/A 11/27/2018 FLEXIBLE SIGMOIDOSCOPY performed by June Tamayo MD at [facility] ??? PRO SIGMOIDOSCOPY, REMV LESN, SNARE 07/23/2017 FLEXIBLE SIGMOIDOSCOPY; W REM TUMOR/POLYP/LESION BY SNARE performed by Aldo Limon MD at [facility] ??? TONSILLECTOMY AND ADENOIDECTOMY ??? TUBAL LIGATION With subsequent reversal Family History Problem Relation Age of Onset ??? Cerebrovascular Accident Mother ??? Hypertension Mother ??? Hyperlipidemia Mother ??? Macular Degeneration Mother ??? Hypertension Sister ??? Diabetes Brother ??? Hypertension Brother ??? Hypertension Maternal Grandmother ??? Ovarian Cancer Maternal Grandmother ??? Diabetes Brother ??? Coronary Artery Disease Brother [place] at age 36 ??? Hypertension Brother ??? Substance Use Disorder Sister Accidental overdose ??? Breast Cancer Neg Hx Social History Tobacco Use ??? Smoking status: Never Smoker ??? Smokeless tobacco: Never Used Vaping Use ??? Vaping Use: Never used Substance Use Topics ??? Alcohol use: Yes Comment: occasionally 1-2 x monthly ??? Drug use: No SOCIAL HISTORY: Employment: retied Lives at home with: Alone Pets: None Smoking or tobacco products: None Alcohol consumption: None and Rare Street or recreational drug usage: No Functionally: Independent Drives: Yes REVIEW OF SYSTEMS: Other patient concerns: A 13-point review of systems was conducted and covered the neurologic, HEENT, cardiovascular, respiratory, gastrointestinal, genitourinary, integumentary, musculoskeletal, psychiatric, hematologic, emphatic, constitutional, and endocrinologic systems. All other systems negative. Questionnaire Results: MIDAS MIDAS Responses 08/06/2021 Days missed school/work 0 Days productivity at work/school reduced 30 Days did not do household work 20 Days productivity related to housework reduced 20 Days missed family, social or leisure activities 0 Days had headache 60 Pain scale 5 MIDAS Score 70 (MIDAS grade IV, severe disability) MIDAS Adjusted Score - PHQ9 No flowsheet data found. Mild: 5-9 Moderate: 10-14 Mod-Severe: 15-19 Severe: >20 GAD7 No flowsheet data found. Mild: 5-9 Moderate: 10-14 Severe: 15-21 VITALS: Patient Vitals for the past 24 hrs: Pulse BP 08/06/21 0740 69 138/66 Body mass index is 25.59 kg/m??. General: Current headache: 12/06. On general physical examination, the patient looked well and was in no apparent distress. Dressed appropriately. Self-described mood was normal. Affect was Congruent and Reactive. Cardiovascular: There were normal first and second heart sounds. No extra heart sounds, rubs, or murmurs were auscultated. There were no carotid bruits. Respiratory: Chest was clear to auscultation posteriorly. HEENT: Normocephalic, atraumatic. There were no abnormalities of the temporomandibular joints bilaterally. The temporal arteries were readily palpable, and they were nontender and nonnodular. Palpation over the sinuses did not elicit any pain. Palpation over the supraorbital did not elicit any pain. Palpation over the occipital notches did elicit pain. There was normal range of motion of the cervical spine in all directions. Palpation of the cervical spine and paraspinal elements did not reveal any specific tenderness. Trapezii were nontender bilaterally. Neurological: Mental status, speech, and language were normal in ordinary conversation. Cranial Nerves: Pupils were equal and reactive to light. There was no RAPD. Visual tyler were intact to confrontation. On fundoscopic examination the optic nerves were difficult to assess due to her mild cataracts. Extraocular movements including saccadic eye movements were normal. There was no nystagmus. There was no facial sensory loss. There was no facial asymmetry or weakness. Uvula was midline, and the soft palate moved symmetrically. Sternocleidomastoid and trapezii were strong bilaterally. Tongue was midline and moved normally. Motor Exam: There was normal tone and bulk in the upper and lower extremities. Pronator drift was absent. Power testing on nerve root screen did not reveal any focal weakness. Reflexes: Deep tendon reflexes were symmetrical and 3+ in the upper and lower extremities. Plantar reflexes were flexor bilaterally. Sensory Exam: light touch: normal in the distal extremities. Vibration: normal in the distal extremities. A Romberg sign was absent. Coordination: Fine finger movements: Normal Rapid alternating movements: Normal Ckgipb-yz-emmo: Normal Gait: Regular gait: Normal Toe-walking: Normal Heel-walking: Normal Tandem gait: slight difficulty Laboratory and Investigations: as discussed in the History of Presenting Illness. SUMMARY AND IMPRESSIONS: A pleasant 65 y.o. right handed female with a new onset history of headaches. Their neurological exam is abnormal with symmetric hyperreflexia throughout Their investigations to date: normal in form of and MRI brain without contrast Their headaches meet criteria for new daily persistent headache with migraine phenotype vs cervicogenic headache, however a secondary cause must be ruled out as there is no prior history of headahce. There are contributions from: Cervicogenic component There are currently concerning features in their headache history which include: New onset headache in a 65 year old, visual changes followed by lethargy These require further investigation: EEG and CTA head and neck to assess causes of monocular vision changes without retinal pathology in someone with history of bilateral carotid stanosis. Evaluation for amaurosis fugax. PLAN: 1. INVESTIGATIONS: CTA HEAD CTA NECK EEG 2. REFERRALS: None at the present time 3. NON-PHARMACOLOGICAL TREATMENTS: I have asked the patient to keep a headache diary in either written or electronic form. I counseled the patient on the importance of trigger avoidance, regular aerobic exercise, well balanced diet, not skipping meals, adequate hydration, good sleep hygiene, and stress reduction. I provided the patient with information on paced breathing and have encouraged daily use. 4. FOR ACUTE TREATMENT OF HEADACHE: We will await work up to rule out secondary cause prior to treating headaches. 5. FOR HEADACHE REDUCTION: We will await work up to rule out secondary cause prior to treating headaches. 6. MEDICATIONS TO BE WITHDRAWN: None at the present time.. I counseled the patient on gradual caffeine cessation. 7. BRIDGING/TRANSITIONAL THERAPY: ONB, done in office today. 8. FOLLOW UP: in one month 9. RESEARCH: Patient IS interested in being contacted by research staff about research opportunitieswithin the headache clinic OTHER: Daily aspirin 325mg given history of bilateral carotid stenosis The pathophysiology, natural history, aggravating factors, and my diagnostic/management plan were discussed with the patient in great detail. The risks and benefits of this treatment plan were discussed with the patient in great detail. Individual side effect profiles for each medication were discussed in detail. Instructions on how to properly take each medication was discussed in detail. Written instructions were provided to the patient. The patient was given an opportunity to ask questions. All questions were answered and the patient was satisfied with the explanations. It was a pleasure seeing Sophia Banegas in consultation and I am pleased to be involved in theircare. If there are any questions or concerns please do not hesitate to contact me. Extra time was required to determine the correct diagnosis, treatment plan, and ip counsel/educate the patient. Sincerely, Eleazar Genao MD Headache Fellow Department of Neurology [facility] Total time spent with Patient and/or charting on the day of the encounter: 90 minutes. Please note that this consultative letter was completed with the assistance of voice recognition software. As result unintentional fabric normalizer errors and/or typographical mistakes are possible. If you notice errors please bring them to my attention. If any area requires explanation or clarification please do not hesitate to contact me. [facility] HEADAC[facility] CLINIC PROCEDURE NOTE Procedure: Bilateral occipital nerve block(s). Indication: Headache. No Contraindications. The patient: Not on antiplatelet or anticoagulant therapy. The patient reports to me that they ARE NOT Date of Last Injection: First Injection QUESTIONNAIRE RESULTS: MIDAS: Patient Reported: Today: MIDAS Responses 08/06/2021 Days missed school/work 0 Days productivity at work/school reduced 30 Days did not do household work 20 Days productivity related to housework reduced 20 Days missed family, social or leisure activities 0 Days had headache 60 Pain scale 5 MIDAS Score 70 (MIDAS grade IV, severe disability) MIDAS Adjusted Score - PHQ-9: No flowsheet data found. KEYANA-7: No flowsheet data found. Patient Vitals for the past 24 hrs: Pulse BP 08/06/21 0740 69 138/66 I obtained written informed consent from the patient for nerve block(s) procedure.. July 2021 We discussed the indications, risks and benefits of the procedure. Risks including infection, bleeding, bruising, alopecia, pain, nerve injury, worsening of headache or no effect on headache. The patient continued to be in agreement [...] As stated above, there were no complications. Repeat Nerve block in: I've asked the patient to contact us when ready to have the procedure repeated.. Jelena Sweeney MD - 08/06/2021 8:00 AM EST Neurology Attending Note Jelena Rock MD (Pg [phone]) I certify that I have seen and examined Sophia Banegas on 08/06/[address] Genao, HeadacheFellow. The note reflects the patient's history of presentation, physical findings. The assessment and plan were formulated together in discussion and I have personally reviewed all studies. Sophia Banegas Is a 65 y.o. female with PMH palpitations, cervicalgia OA presenting for evaluation and management of headache. Never had headaches prior 07 Jun 2021 - there was right sided croissant shape for 10 minutes and then felt tired. She has a daily headache after that time. Pain is at vertex 3/10 in intensity. She has associated photophobia and nausea. She has been seen by Optho and optometry. 02 Jul 2021 MRI brain - we do not have the imaging. 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 Additional aura events: 2 weeks later 8-10 minutes of aura 27 Jul 2021 - dot in vision # New Daily Persistent Headache - migraine phenotype Worried for secondary causes of headache given lack of prior h/o headache Cervicogenic headache - keep headache diary - request images of MRI brain - [facility] - CTA head and neck Monocular vision changes without retinal pathology Evaluation for amaurosis fugax - TIA Known bilateral carotid stenosis - EEG for evaluation of occipital seizure - Daily ASA 325mg daily - ONB for cervicogenic component Follow-up in the [facility] with Dr. Genao in 4 months documented in this encounter Plan of Treatment Scheduled Orders Name Type Priority Associated Diagnoses Order S chedule NERVE BLOCK - Neurology Routine One Time for 1 OCCIPITAL Occurrences sta rting 08/06/2021 unti l 08/06/2021 documented as of this encounter Visit Diagnoses Diagnosis New daily persistent headache (ndph) New daily persistent headache Asymptomatic bilateral carotid artery st enosis Occlusion and stenosis of multiple and b ilateral precerebral arteries without mention of cerebral infarction documented in this encounter Administered Medications Inactive Administered Medications - up to 3 most recent administrations Medication Order MAR Action Action Date Dose Rate Site BUpivacaine (pf) Given 08/06/2021 12:06 PM 7.5 mg 20-Other (document (Marcaine) (2.5 mg/mL) EST in comment section) 0.25% injection 7.5 mg 7.5 mg, Subcutaneous, ONCE, 1 dose, On 08/06/21 at 1230, Routine lidocaine (Xylocaine) 1% Given 08/06/2021 12:06 PM EST 30 mg 20-Other (document in (10 mg/mL) injection 30 mg comment section ) 30 mg (3 mL), Subcutaneous, ONCE, 1 dose, On Fri08/06/21 at 1230, Routine documented in this encounter Care Teams Assistant Toddler Teacher Relationship Specialty Start Date End Date Anita Lea APRN PCP - General Family Medicine 05/14/19 10/11/21 [facility] [address] [facility] [address] [place] [address] documented as of this encounter
--- OUTSIDE RECORDS SUMMARY | 2022-07-26 00:34 | XMS_ITS | Encounter Summary ---
:1955 Author Organization [facility] [place] [address] Care Team Providers Name Role Phone Anita Lea APRN Primary Care Provider Reason for Visit Reason Onset Date Comments Questions 08/09/2021 Encounter Details Date Type Department Care Team Description 08/09/2021 Telephone Neurology at [facility] Eleazar Genao MD Questions [address] [place] [address] NEUROLOGY [phone] [place], [place] [address] (Wo rk) Social History Tobacco Use Types Packs/Day Years [...] this encounter Miscellaneous Notes Telephone Encounter - Lashawn Guerrero RN - 08/13/2021 2:25 PM EST EEG order routed and faxed to [facility]. Telephone Encounter - Veronica Babin - 08/13/2021 2:25 PM EST Spoke with Yareli to make sure routed order was sufficient to schedule the appointment. She states itwas and that patient is scheduled for late in the week. Telephone Encounter - Lashaun Bangura - 08/13/2021 9:32 AM EST Patient is calling regarding the EEG Testing. Patient states she has contacted [facility] and they state they still have not received Order but are able to get the patient in this week if the order is faxed to [phone]. Patient states they have received the CT order and that is currently scheduled for 08/16/2021. Telephone Encounter - Eddie Dowell - 08/09/2021 3:51 PM EST Call Center / [place] Message - Lab/Test being requested to be done Provider patient sees in Clinic: Eleazar Genao MD Caller: Sophia Banegas If not Pt / Relation to pt: Self Call back Number: [phone] OK to leave message: Yes Reason for call: request for lab or test orders - CT and EEG ? ? What labs or tests are being requested: CT & EEG ??? Where does the caller request the order be sent: [facility] - [facility] ORDERS IN THE CHART: YES Send request to provider statistical secretary who can then print and fax the order ORDERS IN THE CHART: No Send request to the nurse Any additional information for the nurse/provider: Patient stated orders for a CT scan and an EEG would be sent to [facility]. Please confirm this has already been completed as patient stated it was not received. Disposition of call ( choose one and remove the other) ??? Message sent to clinic statistical secretary documented in this encounter Plan of Treatment Not on filedocumented as of this encounter Visit Diagnoses Not on filedocumented in this encounter Care Teams Design/Animation Instructor Relationship Specialty Start Date End Date Anita Lea APRN PCP - General Family Medicine 05/14/19 10/11/[address] [place] [address] [address] [place] [address] documented as of this encounter
--- OUTSIDE RECORDS SUMMARY | 2022-07-26 00:34 | XMS_ITS | Encounter Summary ---
:1955 Author Organization [facility] [place] [address] Care Team Providers Name Role Phone Anita Lea APRN Primary Care Provider Encounter Details Date Type Department Care Team Description 05/18/2019 Hospital Encounter [place] [facility] [place] Rivera, [facility] [place] [address] [facility] [phone] [facility] [place], [place] [address] Social History Tobacco Use Types [...] Sign Reading Time Taken Comments Blood Pressure 166/63 05/18/2019 11:40 AM EDT Pulse 58 05/18/2019 8:50 AM EDT Temperature 36.4 ??C (97.6 ??F) 05/18/2019 8:50 AM EDT Respiratory Rate 16 05/18/2019 10:30 AM EDT Oxygen Saturation 100% 05/18/2019 11:45 AM EDT Inhaled Oxygen Concentration - - Weight 71.2 kg (157 lb) 05/18/2019 8:50 AM EDT Height 167.6 cm (5' 6) 05/18/2019 8:50 AM EDT Body Mass Index 25.34 05/18/2019 8:50 AM EDT documented in this encounter Discharge Instructions Discharge Derek Laboy RN - 05/18/2019 11:20 AM EDT Colonoscopy What to expect after the procedure You may feel a little more gassy or bloated than usual. This is normal. You should expect the return of normal bowel function in the 2 to 3 days. Activity Because of the sedation that you received your judgement and reaction time are effected ?? Go home and rest quietly for the remainder of the day. You may resume your normal activities tomorrow. ?? Change from one position to the next slowly. You may lose your balance unexpectedly ?? Be careful on stairs, as you may be unsteady on your feet FOR THE NEXT 24 HRS ?? DO NOT DRIVE OR OPERATE ANY MACHINERY ?? DO NOT DRINK ALCOHOLIC BEVERAGES ?? DO NOT SIGN LEGAL DOCUMENTS ?? If you are a smoker: DO NOT SMOKE WHILE YOU ARE ALONE Diet ?? Start by eating small portions of foods that ordinarily will not upset your stomach . Avoid gas producing foods for the next few days ?? Be gentle with what you choose to start with ?? Drink plenty of fluids ( unless your doctor has told you not to). IV SITE-- slight redness, or tenderness is normal. You can use warm compresses if you become concerned. If the tenderness +/or redness increases or foul drainage and a red streak occurs, please contact your PCP immediately When shoud you call for help? Call 911 anytime you think you may need emergency care. For example If you pass out ( loss of consciousness) If you pass maroon or bloody stools If you have severe belly pain Call your doctor now or seek immediate medical care If your stools are black and tarlike If your stools have streaks of blood, but you did not have a biopsy or any polyps removed If you have belly pain, or your belly is swollen and firm If you vomit If you have a fever If you are very dizzy Watch closely for changes in your health, and be sure to contact your doctor if you have any problems Your doctor will let you know when you will need your next colonoscopy. The results of your test andyour risk for colorectal cancer will help your doctor decide how often you need to be checked. Friday-Friday Same Day Endo [phone]-8p Otherwise contact [phone] and ask to speak to the machining engineer transportation logistics internship Follow up care is a landon part of your treatment and safety. Be sure to make and go to all appointments, and call your doctor if you are having problems. Discharge instructions reviewed with patient who expresses understanding Patient InstructionsWade Rivera MD - 05/18/2019 10:33 AM EDT Please see Recommendations in the Provation procedure report which is documented in the procedural note in E-DH. documented in this encounter Medications at Time of Discharge Medication Sig Dispensed Refills Start Date End Date ascorbic acid, vitamin C, Take 1,000 mg by 0 (VITAMIN C) 1,000 mg Tablet mouth daily. multivitamin (THERAGRAN) 0 12/04/2010 tablet documented as of this encounter H&P Notes Wade Rivera MD - 05/18/2019 9:53 AM EDT Gastroenterology and Hepatology Pre-Procedure History and Physical Exam Procedure: Colonoscopy: Indication: Polyp f/up (recurrent polyp at rectosigmoid). Patient Active Problem List Diagnosis Code ??? Asymptomatic bilateral carotid artery stenosis I65.23 ??? History of palpitations Z87.898 EXAM: HEENT: Airway examined, oropharynx clear Mallampati Score: Per anesthesia LUNGS: Clear to auscultation HEART: Regular rate and rhythm, normal S1, S2 ABDOMEN: Normal bowel sounds, soft, non tender, non distended, A/P Proceed with the planned endoscopic procedure. ASA 2 - Patient with mild systemic disease with no functional limitations Sedation Plan: deep Risks and benefits of the procedure explained to the patient. Consent signed. 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 Per Dr. Rivera 90 minutes with Prop split dose Postoperative diagnosis: * No post-op diagnosis entered * Procedure(s) (LRB): COLONOSCOPY, DIAGNOSTIC (N/A) Anesthesia: MAC Full procedure note is documented under the Procedure section of eDH. documented in this encounter Plan of Treatment Not on filedocumented as of this encounter Procedures Procedure Name Priority Date/Time Associated Diagnosis Comme nts COLONOSCOPY, 05/18/2019 9:36 AM recurring TVA in the DIAGNOSTIC EDT rectosigmoid colon. Per Dr. Rivera 90 minutes with Pro p split dose COLONOSCOPY Routine 05/18/2019 9:22 AM Results f or this EDT procedure are i n the results section. documented in this encounter Results COLONOSCOPY (05/18/2019 9:22 AM EDT) [facility] Method Time Signature COLONOSCOPY [facility] PROVATION Endoscopy Procedure Date: 05/18/2019 9:22 AM ? Patient Name: Sophia Montes De Oca ? Date of : 1955 ? Age: 63 ? Order #: [id number] ? Instrument Name: [id number] ? Procedure: ? Colonoscopy Indications: ? Follow-up for history of adenomatou s ? polyps in the colon Providers: ? Wade Rivera MD, [facility], ? Hina Stein ? Marv, End Polisher Referring : ?Claudia Perez Medicines: ? Monitored Anesthesia Care Complications: ? No immediate complications. Procedure: ? Pre-Anesthesia Assessment: ? - ASA Grade Assessment: II - A ? patient with mild systemic di sease. ? The procedure, indications, b enefits, ? [...] direct visuali zation, ? advanced to the terminal ileu m. ? Careful inspection was made a s the ? colonoscope was withdrawn. Th e ? colonoscopy was performed wit hout ? difficulty. The patient lisa ated the ? procedure well. The quality o f the ? bowel preparation was evaluat ed using ? the BBPS (Mellen Bowel Prepar ation ? Scale) with scores of: Right Colon = ? 3, Transverse Colon = 3 and L eft ? Colon = 3 (entire mucosa seen well ? with no residual staining, sm all ? fragments of stool or opaque liquid). ? The total BBPS score equals 9 . ? Findings: ? The perianal and digital rectal examinations were ? normal. ? The terminal ileum appeared normal. ? A few small-mouthed diverticula were found in the ? sigmoid colon. ? A tattoo was seen at 15 cm proximal to the anus. The ? areas adjacent to the tattoo were carefully examined. ? A post-polypectomy scar was found. There was no polyp ? tissue in this area. ? External hemorrhoids were found during retroflexion. ? The hemorrhoids were medium-sized. ? Otherwise, the rectum, sigmoid colon, descending ? colon, transverse colon, ascending colon, cecum and ? ileocecal valve appeared normal. ? Moderate Sedation: ? Not applicable - See Anesthesia documentation Impression: ?- Diverticulosis in the sigmoid co sergey. ? - Post-polypectomy site ident ified by ? tattoo. No polyp tissue found . ? - External hemorrhoids. Recommendation: ?- Discharge patient to home. ? - Resume previous diet. ? - Repeat colonoscopy in 2 yea rs for ? surveillance. ? - F/U with PCP as previously ? scheduled. ? Procedure Code(s): ?? --- Professional --- ? 77669, GC, Colonoscopy, flexi ble; ? diagnostic, including collect ion of ? specimen(s) by brushing or wa shing, ? when performed (separate proc edure) Diagnosis Code(s): ?? --- Professional --- ? K64.4, Residual hemorrhoidal skin tags ? Z86.010, Personal history of colonic ? polyps ? K57.30, Diverticulosis of lar ge ? intestine without perforation or ? abscess without bleeding ? --- Technical --- ? K64.4, Residual hemorrhoidal skin tags ? Z86.010, Personal history of colonic ? polyps ? K57.30, Diverticulosis of lar ge ? intestine without perforation or ? abscess without bleeding CPT copyright 2017 [employer]. All rights reserved. The codes documented in this report are preliminary and upon transmission and protection engineer review may be revised to meet current compliance requirements. Attending Participation: ? I was present and participated during the entire ? procedure, including non-landon portions. ? Wade Rivera MD 05/18/2019 10:15:33 AM This report has been signed electronically. Number of Addenda: 0 Note Initiated On: 05/18/2019 9:22 AM Specimen (Source) Anatomical Collection Method Collection Time Re ceived Time Location / / Volume Laterality 05/18/2019 9:22 AM EDT Claudia Perez APRN GENERAL SURGICAL ORDERABLES Performing Organization Address City/State/ZIP Code Phon e Number PROVATION documented in this encounter Visit Diagnoses Not on filedocumented in this encounter Administered Medications Inactive Administered Medications - up to 3 most recent administrations Medication Order MAR Action Action Date Dose Rate Site lactated ringers infusion New Bag 05/18/2019 8:58 AM EDT 100 mL/hr 100 mL/hr 100 mL/hr, Intravenous, CONTINUOUS, Starting on Fri05/18/19 at 0915, Until Fri05/18/19 at 1216, Endoscopy (Day of Procedure) documented in this encounter Active and Recently Administered Medications Times are shown in EDT. Continuous Medication Order 05/16/2019 05/17/2019 05/18/2019 lactated ringers infusion (CANCELED) 0858 (New Bag - Provider: Cailin Mccullough RN) 100 mL/hr, at 100 mL/hr, Intravenous, CO NTINUOUS, Starting Fri05/18/19 at 0915, Until Fri05/18/19 at 1216, Endo (Day of Procedure) documented in this encounter Care Teams Souvenir Assembler Relationship Specialty Start Date End Date Anita Lea APRN PCP - General Family Medicine 05/14/19 10/11/[address] [place] [address] documented as of this encounter
--- OUTSIDE RECORDS SUMMARY | 2022-07-26 00:34 | XMS_ITS | Encounter Summary ---
:1955 Author Organization [facility] [place] [address] Care Team Providers Name Role Phone NghiaboubacarClaudia APRN Primary Care Provider Encounter Details Date Type Department Care Team Description 11/07/2017 Surgery Gastroenterology at [facility] Aldo Limon, COLONOSCOPY FLEXIBLE, [facility] Dav black MD WITH BX (WRVU 3.66) [place] [address] [facility] [phone] [place], [place] [address] Social History Tobacco Use Types [...] Sign Reading Time Taken Comments Blood Pressure 122/66 11/07/2017 10:30 AM EST Pulse 69 11/07/2017 10:18 AM EST Temperature - - Respiratory Rate 18 11/07/2017 10:30 AM EST Oxygen Saturation 96% 11/07/2017 10:30 AM EST Inhaled Oxygen Concentration - - Weight 73.9 kg (163 lb) 11/07/2017 8:55 AM EST Height 168.9 cm (5' 6.5) 11/07/2017 8:55 AM EST Body Mass Index 25.91 11/07/2017 8:55 AM EST documented in this encounter Discharge Instructions Discharge InstructionsCoEdwin varghese RN - 11/07/2017 10:30 AM EST Colonoscopy What to expect after the procedure [...] to be checked. Friday-Friday Same Day Endo [phone] 7a-8p Otherwise contact [phone] and ask to speak to the tube sorter medication administration professional Follow up care is a landon part of your treatment and safety. Be sure to make and go to all appointments, and call your doctor if you are having problems. Discharge instructions reviewed with patient who expresses understanding documented in this encounter Medications at Time of Discharge Medication Sig Dispensed Refills Start Date End Date ascorbic acid, vitamin C, Take 1,000 mg by 0 (VITAMIN C) 1,000 mg Tablet mouth daily. multivitamin (THERAGRAN) 0 12/04/2010 tablet documented as of this encounter H&P Notes Aldo Limon MD - 11/07/2017 9:34 AM EST Gastroenterology and Hepatology Pre-Procedure History and Physical Exam Procedure: Colonoscopy: Indication: 62yo woman for colonoscopy. 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 Most recently I removed 15mm residual polyp at that site. After discussion with pt we have decided to try to eradicate this site more aggressively with full colonoscopy today. No new complaints. Patient Active Problem List Diagnosis Code ??? Asymptomatic bilateral carotid artery stenosis I65.23 EXAM: HEENT: Airway examined, oropharynx clear Mallampati Score: I (soft palate, uvula, fauces, tonsillar pillars visible) LUNGS: Clear to auscultation HEART: Regular rate and rhythm, normal S1, S2 ABDOMEN: Normal bowel sounds, soft, non tender, non distended, A/P Proceed with the planned endoscopic procedure. ASA 1 - Normal health patient Sedation Plan: moderate (conscious sedation) Risks and benefits of the procedure explained to the patient. Consent signed. documented in this encounter Miscellaneous Notes Op Note - Aldo Limon MD - 11/07/2017 10:20 AM EST [facility] Operative Note Patient Name: Sophia Montes De Oca : [id number] MR#: [id number] Case Date: 11/07/2017 Surgeon: Surgeon(s) and Role: * Aldo Limon MD - Primary Preoperative diagnosis: 12 wk f/u from 07/2017 Postoperative diagnosis: * No post-op diagnosis entered * Procedure(s) (LRB): COLONOSCOPY FLEXIBLE, WITH BX (WRVU 3.66) (N/A) Please see Provation for full procedure note. Aldo Limon MD 11/07/2017 documented in this encounter Plan of Treatment Not on filedocumented as of this encounter Procedures Procedure Name Priority Date/Time Associated Comments Diagnosis SURGICAL PATHOLOGY Routine 11/07/2017 10:18 Resul ts for this REPORT AM EST procedure are i n the results section. SPECIMEN TO PATHOLOGY Routine 11/07/2017 10:18 Re sults for this AM EST procedure are i n the results section. COLONOSCOPY FLEXIBLE, 11/07/2017 9:38 AM 12 wk f/u fro m WITH BX (WRVU 3.66) EST 07/2017 COLONOSCOPY Routine 11/07/2017 9:29 AM Results f or this EST procedure are i n the results section. documented in this encounter Results Surgical Pathology Report (11/07/2017 10:18 AM EST) Component Value Ref Test Analysis Performed At [facility] Method Time Signature Surgical [id number] ? Location: 4T; EA; [facility] Report The signing pathologist has (i) examined the relevant preparation(s) for the MEMORIAL specimen(s) and (ii) rendered or confirmed the diagnosis(es) . HOSPITAL LABORATORY . ?Surgic al Pathology DIAGNOSIS Rectosigmoid colon at 20 cm, biopsy: Colonic mucosa, negative for dysplasia. Electronically signed by: ??Kuldeep MUNSON, [place] Verified: ??11/13/2017 ?Pathologist Performed at: ??-[facility] Dept. of Pathology, [place], [place] CLINICAL INFORMATION Specimen Submitted: A - Rectosigmoid bx 's at 20cm, site of TVA, r/o adenoma Clinical History: Colonoscopy for known polyp Clinical Diagnosis: Same SPECIMEN PROCESSING A - Labeled/Fixative: Rectosigmoid biopsies at 20 cm, formal in. Quantity/Size: Three, 0.2-0.4 cm. Tissue Description: ??Soft, neves-pink tissue ??. Sections/Processing: (T1) ??ejr Specimen (Source) Anatomical Collection Method Collection Time Re ceived Time Location / / Volume Laterality 11/07/2017 10:18 AM EST Aldo Limon MD PATHOLOGY/CYTOLOGY ORDERABLE S Performing Organization Address City/[facility]/ZIP Code Phon e Number [address] Specimen to Pathology (11/07/2017 10:18 AM EST) Specimen Anatomical Collection Method Collection Time Receive d Time (Source) Location / / Volume Laterality AP Specimen 11/07/2017 10:18 11/07/2017 1:16 AM EST PM EST Narrative [facility] - 11/07/2017 1:16 PM EST Specimen requisition ordered. ??Separate Pathology report to follow Resulting Agency Comment Spec In Lab Aldo Limon MD PATHOLOGY/CYTOLOGY ORDERABLE S Performing Organization Address City/[facility]/ZIP [facility] [place] [address] COLONOSCOPY (11/07/2017 9:29 AM EST) [facility] gist Method Time Signature COLONOSCOPY [facility] Endoscopy Procedure Date: 11/07/2017 9:29 AM ? Patient Name: Sophia Montes De Oca ? Date of : 1955 ? Age: 62 ? Order #: [id number] ? Instrument Name: [id number] ? Procedure: ? Colonoscopy Indications: ? High risk colon cancer surveillance : ? Personal history of adenoma ( 10 mm or ? greater in size), High risk c olon ? cancer surveillance: Personal history ? of adenoma with villous compo nent Providers: ? Edwin Peralta ? Devorah De Jesus Referring MD: ?Claudia Perez Medicines: ? Midazolam 4 mg IV, Fentanyl 200 ? micrograms IV Complications: ? No immediate complications. Procedure: ? [...] zation, ? advanced to the terminal ileu m, with ? identification of the appendi ceal ? orifice and IC valve. Careful ? inspection was made as the ? colonoscope was withdrawn. Th e ? colonoscopy was performed alexandr vuong. ? The patient tolerated the pro cedure ? well. The quality of the susan l ? preparation was excellent. Sc ope ? withdrawal time was 14 minute s. ? Findings: ? The perianal and digital rectal examinations were ? normal. ? A few small-mouthed diverticula were found in the ? sigmoid colon. ? A tattoo was seen in the recto-sigmoid colon. A ? post-polypectomy scar was found at the tattoo site. ? There was no evidence of residual polyp tissue. This ? was biopsied with a cold forceps for histology. ? The exam was otherwise without abnormality. ? Moderate Sedation: ? I was present during the intraservice time as ? documented by the sedation RN. Impression: ?- Diverticulosis in the sigmoid co sergey. ? - A tattoo was seen in the ? recto-sigmoid colon. A ? post-polypectomy scar was fou nd at ? the tattoo site. There was no ? evidence of residual polyp ti ssue. ? Biopsied. ? - The examination was otherwi se ? normal to the terminal ilium. ? - Personal history of KALLI gonzalez ? multiple procedures per H&P. Recommendation: ?- Await pathology results. ? - Repeat colonoscopy in 1 yea r for ? surveillance based on patholo gy ? results and her personal hist ory. ? - High fiber diet. ? Attending Participation: ? I personally performed the entire procedure. ? Aldo Limon, 11/07/2017 10:19:51 AM Number of Addenda: 0 Note Initiated On: 11/07/2017 9:29 AM Specimen (Source) Anatomical Collection Method Collection Time Re ceived Time Location / / Volume Laterality 11/07/2017 9:29 AM EST Claudia Perez IMMIGRATION SPECIALIST GENERAL SURGICAL ORDERABLES Performing Organization Address City/State/ZIP Code Phon e Number [employer] documented in this encounter Visit Diagnoses Not on filedocumented in this encounter Administered Medications Inactive Administered Medications - up to 3 most recent administrations Medication Order MAR Action Action Date Dose Rate Site fentaNYL 50 mcg/mL multi-dose Given 11/07/2017 9:52 AM EST 25 mc g injection ONCE PRN, Starting on Fri11/07/17 at 0940, Until Fri11/07/17 at 1334, Intra-Operative (Intra-Procedure), Routine Given 11/07/2017 9:49 AM EST 25 mcg Given 11/07/2017 9:46 AM EST 50 mcg lactated Ringers infusion New Bag 11/07/2017 9:14 AM EST 50 mL/hr 50 mL/hr 50 mL/hr, Intravenous, CONTINUOUS, Starting on Fri11/07/17 at 0915, Until Fri11/07/17 at 1108, Endoscopy (Day of Procedure) midazolam (PF) (VERSED) 1 mg/mL multi-dose Given 11/07/2017 9:52 AM EST 0.5 mg injection ONCE PRN, Starting on Fri11/07/17 at 0940, Until Fri11/07/17 at 1334, Intra-Operative (Intra-Procedure), Routine Given 11/07/2017 9:49 AM EST 0.5 mg Given 11/07/2017 9:46 AM EST 1 mg documented in this encounter Active and Recently Administered Medications Times are shown in EST. Continuous Medication Order 11/05/2017 11/06/2017 11/07/2017 lactated Ringers infusion (CANCELED) 0914 (New Bag - Provider: Oly Penny RN) 50 mL/hr, at 50 mL/hr, Intravenous, CONT INUOUS, Starting Fri11/07/17 at 0915, Until Fri11/07/17 at 1108, Endo (Day of Procedure) PRN Medication Order 11/05/2017 11/06/2017 11/07/2017 fentaNYL 50 mcg/mL multi-dose injection (CANCELED) 0940 (Given - Provider: Edwin De Jesus RN)0943 (Given - Provider: Edwin De Jesus RN)0946 (Given - Provider: Edwin De Jesus RN)0949 (Given - Provider: Edwin De Jesus RN)0952 (Given - Provider: Edwin De Jesus RN) ONCE PRN, Starting 11/07/17 at 0940, U ntil 11/07/17 at 1334, Intra-Operative (Intra-Procedure), Routine midazolam (PF) (VERSED) 1 mg/mL multi-dose injection (CANCELED) 0940 (Given - Provider: Edwin De Jesus RN)0943 (Given - Provider: Edwin De Jesus RN)0946 (Given - Provider: Edwin De Jesus RN)0949 (Given - Provider: Edwin De Jesus RN)0952 (Given - Provider: Edwin De Jesus RN) ONCE PRN, Starting 11/07/17 at 0940, U ntil 11/07/17 at 1334, Intra-Operative (Intra-Procedure), Routine documented in this encounter Care Teams Program Or Project Administrator Relationship Specialty Start Date End Date Claudia Perez APRN PCP - General 05/05/15 05/13/19 documented as of this encounter
--- OUTSIDE RECORDS SUMMARY | 2022-07-26 00:34 | XMS_ITS | Encounter Summary ---
:1955 Author Organization [facility] [place] [place] [address] Care Team Providers Name Role Phone Anita Lea WALESKA Primary Care Provider Reason for Referral Diagnostic Test (Routine) - Closed Specialty Diagnoses / Procedures Referred By Contact Refer red To Contact Radiology Diagnoses Lower abdominal pain Herb Fernandez MD [facility] Rad Ct Scan Procedures CT Abdomen & Pelvis w Contrast CT Abdomen & Pelvis wwo Contrast (Generic) [facility] [address] [place] [address] Referral ID Status Reason Start Date Expiration Date Visits V isits Requested Authorized [id number] Closed Specialty 10/29/2019 04/28/2021 1 1 Service Requested Reason for Visit Diagnostic Test (Routine) - Closed Specialty Diagnoses / Procedures Referred By Contact Refer red To Contact Radiology Diagnoses Lower abdominal pain Herb Fernandez MD [facility] Rad Ct Scan Procedures CT Abdomen & Pelvis w Contrast CT Abdomen & Pelvis wwo Contrast (Generic) [facility] OBSTETRICS [place] [address] [place] [address] Referral ID Status Reason Start Date Expiration Date Visits V isits Requested Authorized [id number] Closed Specialty 10/29/2019 04/28/2021 1 1 Service Requested Encounter Details Date Type Department Care Team Description 10/31/[address] Scan at [facility] Yojana Simon, Lower abdominal pain [facility] MD [place], [place] CENTER [address] OBSTETRICS & [phone] [place] [address] Social History Tobacco Use Types Packs/Day Years [...] Name Priority Date/Time Associated Diagnosis Comme nts CT ABDOMEN AND Routine 10/31/2019 2:57 PM Lower abdominal pain Results for this PELVIS W CONTRAST EST procedure are in the results section. documented in this encounter Results CT Abdomen & Pelvis w Contrast (10/31/2019 2:57 PM EST) Anatomical Region Laterality Modality Abdomen, Pelvis Computed Tomography Specimen (Source) Anatomical Location Collection Method / Collectio n Time Received Time / Laterality Volume Impressions 10/31/2019 3:39 PM EST No acute findings. No visible etiology for patient's symptoms. Thank you for letting us participate in the care of this patient. For questions regarding this report, please contact e number below. ? Electronically signed by: Bernard martinez, [facility] ([phone]), at 10/31/2019 3:39 PM Narrative 10/31/2019 3:39 PM EST EXAMINATION: CT ABDOMEN AND PELVIS W CONTRAST CLINICAL HISTORY: Abdominal distension; Abdominal pain, acute, nonlocalized 64 yo with early satiety, constipation a nd abdominal bloating concerning for GI obstruction., Needs PO contrast TECHNIQUE: Helical CT of the abdomen and pelvis was performed following the intravenous administration of contrast. Administered 85.0 ml of OMNIPAQUE 350.00 mg/ml. Oral contrast was administered. COMPARISON: None FINDINGS: Lower chest: Normal. Liver: Normal size and attenuation witho ut lesions. Bile ducts: Nondilated. Gallbladder: No calcified gallstones. No rmal caliber wall. Pancreas: Normal attenuation without bright kranthi dilatation. Spleen: Normal. Adrenals: Normal. Kidneys: Normal. Symmetric renal enhance ment. No renal collecting system obstruction bilaterally. Urinary Bladder: Normal. Vasculature: No aneurysm. Lymph Nodes: No enlarged lymph nodes. Bowel: Nondilated, no wall thickening. S cattered colonic diverticula. No diverticulitis. No colonic wall thickeni ng to suggest a colitis. Peritoneum and mesentery: No ascites, fr ee air, or loculated fluid collection. No mesenteric inflammation. Abdominal wall: Normal. Reproductive organs: A metallic density is noted within the uterus. Osseous structures: No suspicious lesion s. Procedure Note Bernard Green MD - 10/31/2019Form atting of this note might be different from the original. EXAMINATION: CT ABDOMEN AND PELVIS W CON TRAST CLINICAL HISTORY: Abdominal distension; Abdominal pain, acute, nonlocalized 64 yo with early satiety, constipation a nd abdominal bloating concerning for GI obstruction., Needs PO contrast TECHNIQUE: Helical CT of the abdomen and pelvis was performed following the intravenous administration of contrast. Administered 85.0 ml of OMNIPAQUE 350.00 mg/ml. Oral contrast was administered. COMPARISON: None FINDINGS: Lower chest: Normal. Liver: Normal size and attenuation witho ut lesions. Bile ducts: Nondilated. Gallbladder: No calcified gallstones. No rmal caliber wall. Pancreas: Normal attenuation without bright kranthi dilatation. Spleen: Normal. Adrenals: Normal. Kidneys: Normal. Symmetric renal enhance ment. No renal collecting system obstruction bilaterally. Urinary Bladder: Normal. Vasculature: No aneurysm. Lymph Nodes: No enlarged lymph nodes. Bowel: Nondilated, no wall thickening. S cattered colonic diverticula. No diverticulitis. No colonic wall thickeni ng to suggest a colitis. Peritoneum and mesentery: No ascites, fr ee air, or loculated fluid collection. No mesenteric inflammation. Abdominal wall: Normal. Reproductive organs: A metallic density is noted within the uterus. Osseous structures: No suspicious lesion s. IMPRESSION No acute findings. No visible etiology f or patient's symptoms. Thank you for letting us participate in the care of this patient. For questions regarding this report, please contact e number below. Electronically signed by: Bernard martinez, [facility] ([phone]), at 10/31/2019 3:39 PM Yojana Simon MD IMG CT ORDERABLES documented in this encounter Visit Diagnoses Diagnosis Lower abdominal pain Abdominal pain, other specified site documented in this encounter Administered Medications Inactive Administered Medications - up to 3 most recent administrations Medication Order MAR Action Action Date Dose Rate Site iohexoL (OMNIPAQUE) 350 mg/mL Given 10/31/2019 2:57 PM EST 80 mL s solution 0-200 mL 0-200 mL, Intravenous, ONCE PRN, 1 dose, Starting on 10/31/19 at 1426, Until 10/31/19 at 1457, Per Protocol, Warning Vesicant/Irritant Medication , Radiology Contrast, Routine iohexoL (OMNIPAQUE) 350 mg/mL solution 0-50 Given 10/31/2019 2:26 PM EST 50 mLs mL 0-50 mL, Oral, ONCE PRN, 1 dose, Starting on 10/31/19 at 1426, Until 10/31/19 at 1426, Per Protocol, Warning Vesicant/Irritant Medication , Radiology Contrast, Routine documented in this encounter Care Teams Net Software Engineer Relationship Specialty Start Date End Date Anita Lea APRN PCP - General Family Medicine 05/14/19 10/11/21 [address] [facility] [address] [place] [address] documented as of this encounter
--- OUTSIDE RECORDS SUMMARY | 2022-07-26 00:34 | XMS_ITS | Encounter Summary ---
:1955 Author Organization [facility] [place] [place] [address] Care Team Providers Name Role Phone Claudia Perez APRN Primary Care Provider Encounter Details Date Type Department Care Team Description 12/18/2018 Telephone [facility]astroenterology at [facility] [place] [address] Social History Tobacco Use Types Packs/Day Years [...] this encounter Miscellaneous Notes Telephone Encounter - Christine Sheets - 01/01/2019 3:38 PM EDT Pt calls to request pathology results and plan of care going forward. Sent pt copy of procedure report via [facility] and suggested reach out to PCP perhaps for pathology at this time as MD is out of the office today Telephone Encounter - Susie Tilley - 12/18/2018 1:01 PM EDT Caller: patient Call for: June/Nurse Reason for call: patient looking for results form 11/27 flex sig Call back urgency: routine Ok to leave detailed message? yes Preferred method of communication: [phone] documented in this encounter Plan of Treatment Not on filedocumented as of this encounter Visit Diagnoses Not on filedocumented in this encounter Care Teams Alarm Installation Technician Relationship Specialty Start Date End Date Claudia Perez APRN PCP - General 05/05/15 05/13/19 documented as of this encounter
--- OUTSIDE RECORDS SUMMARY | 2022-07-26 00:34 | XMS_ITS | Encounter Summary ---
:1955 [place] [address] Care Team Providers Name Role Phone Anita Lea APRN Primary Care Provider Encounter Details Date Type Department Care Team Description 08/16/2021 Ancillary Procedure Radiology Library at [facility] Josemanuel barnhart [facility] MD Dorian [facility] [place] [address] NEUROLOGY [phone] [place], [place] [address] (Wo rk) Social History Tobacco [...] Name Priority Date/Time Associated Diagnosis Comme nts FILM LIBRARY Routine 08/16/2021 8:07 PM Results f or this STORAGE ONLY CT EST procedure ar e in HEAD AND SPINE the results section. documented in this encounter Results Film Library- Storage Only CT Head And Spine (08/16/2021 8:07 PM EST) Specimen (Source) Anatomical Location Collection Method / Collectio n Time Received Time / Laterality Volume Narrative PETRA - 08/16/2021 8:07 PM EST This exam is auto-finalizing. It's purpo se is for storage only. Eleazar Genao MD IMEvelin FILM LIBRARY ORDERABLES Performing Organization Address City/State/ZIP Code Phon e Number [place], [place] documented in this encounter Visit Diagnoses Not on filedocumented in this encounter Care Teams Manager Transport Relationship Specialty Start Date End Date Anita Lea APRN PCP - General Family Medicine 05/14/19 10/11/[address] [place] [address] documented as of this encounter
--- OUTSIDE RECORDS SUMMARY | 2022-07-26 00:34 | XMS_ITS | Encounter Summary ---
:1955 Author Organization [facility] [place] [address] Care Team Providers Name Role Phone Anita Lea APRN Primary Care Provider Encounter Details Date Type Department Care Team Description 07/02/2021 Ancillary Procedure Radiology Library at [facility] [address] [id number] [phone] Social History Tobacco Use Types Packs/Day Years [...] Associated Diagnosis Comme nts FILM LIBRARY Routine 07/02/2021 12:00 AM Results for this STORAGE ONLY MR EDT procedure ar e in HEAD the results section. documented in this encounter Results Film Library- Storage Only MR Head (07/02/2021 12:00 AM EDT) Specimen (Source) Anatomical Location Collection Method / Collectio n Time Received Time / Laterality Volume Narrative EFRAIN LAMBERT - 09/04/2021 4:15 PM EST This exam is auto-finalizing. It's purpo se is for storage only. Anita Lea APRN IMG FILM LIBRARY ORDERABLES Performing Organization Address City/State/ZIP Code Phon e Number [place], [place] documented in this encounter Visit Diagnoses Not on filedocumented in this encounter Care Teams Survey Research Analyst Relationship Specialty Start Date End Date Anita Lea APRN PCP - General Family Medicine 05/14/19 10/11/[address] [place] [address] documented as of this encounter
--- OUTSIDE RECORDS SUMMARY | 2022-07-26 00:34 | XMS_ITS | Encounter Summary ---
:1955 Author Organization [facility] [place] [address] Care Team Providers Name Role Phone JesemichelleClaudia APRN Primary Care Provider Encounter Details Date Type Department Care Team Description 07/23/2017 Hospital Encounter Gastroenterology at [facility] Aldo Lmion, [facility] [place] [address] [facility] [phone] [place], [place] [address] Social History Tobacco Use Types [...] be sent through Care Everywhere. SIGMOIDOSCOPY: POST-OP (TAMAZIGHT)documented in this encounter Medications at Time of [...] Patient Name: Sophia Montes De Oca : [id number] MR#: [id number] Case Date: 07/23/2017 Surgeon: Surgeon(s) and Role: [...] Component Value Ref Test Analysis Performed At [facility] Method Time Signature Surgical [id number] ? Location: ; [facility]; [facility] Pathology GLEN ARM Report The signing pathologist has (i) examined the relevant preparation(s) for the MEMORIAL specimen(s) and (ii) rendered or confirmed the diagnosis(es) . HOSPITAL LABORATORY . ?Surgic al Pathology DIAGNOSIS Sigmoid colon, polyp 15 mm, ?? polypectomy: Tubulovillous adenoma (multiple fragments). Electronically signed by: ??Savannah Light MD Verified: ??07/28/2017 ?Pathologist Performed at: ??-[facility] Dept. of Pathology, [place], [place] CLINICAL INFORMATION Specimen Submitted: A - [...] MD PATHOLOGY/CYTOLOGY ORDERABLE S Performing Organization Address City/State/[place] [address] Specimen to Pathology (surgical or derm) (07/23/2017 1:46 PM EDT) Specimen Anatomical Collection Method Collection Time Receive d Time (Source) Location / / Volume Laterality AP Specimen 07/23/2017 1:46 PM 7 1:46 EDT PM EDT Narrative [facility] - 07/23/2017 1:46 PM EDT Specimen requisition ordered. ??Separate Pathology report to follow Aldo Limon MD PATHOLOGY/CYTOLOGY ORDERABLE S Performing Organization Address City/[facility]/[place] [address] FLEXIBLE SIGMOIDOSCOPY (07/23/2017 12:56 PM EDT) Component Value Ref Test Analysis Performed Pathologis t Range Method Time At [facility] FLEXIBLE [facility]OVATION SIGMOIDOSCOPY Endoscopy Procedure Date: 07/23/2017 12:56 PM ? Patient Name: Sophia Montes De Oca ? Date of : 1955 ? Age: 61 ? Order #: [id number] ? Instrument Name: [id number] ? Procedure: ? Flexible Sigmoidoscopy Indications: ? [...] colon at 20cm a djacent [facility], removed with a hot ? snare [...] ? procedure, including non-landon portions. ? Aldo Shilo Limon, 07/23/2017 1:51:14 PM Number of Addenda: [...] Active and Recently Administered Medications Care Teams Pill Coater Relationship Specialty Start Date End Date Claudia Perez APRN PCP - General 05/05/15 05/13/19 documented as of this encounter
--- OUTSIDE RECORDS SUMMARY | 2022-07-26 00:34 | XMS_ITS | Encounter Summary ---
:1955 Author Organization [facility] [place] [address] Care Team Providers Name Role Phone Anita Lea WALESKA Primary Care Provider Encounter Details Date Type Department Care Team Description 05/08/2021 Surgery Gastroenterology at [facility] Wade Rivera, COLONOSCOPY, [facility] [place] [address] [facility] [phone] GASTROENTEROLOGY DEPT. [place], [place] [address] Social History Tobacco Use Types [...] Sign Reading Time Taken Comments Blood Pressure 147/82 05/08/2021 11:00 AM EDT Pulse 69 05/08/2021 9:37 AM EDT Temperature 36.4 ??C (97.5 ??F) 05/08/2021 9:37 AM EDT Respiratory Rate 18 05/08/2021 10:50 AM EDT Oxygen Saturation 100% 05/08/2021 11:00 AM EDT Inhaled Oxygen Concentration - - Weight 70.3 kg (155 lb) 05/08/2021 9:37 AM EDT Height 167.6 cm (5' 6) 05/08/2021 9:37 AM EDT Body Mass Index 25.02 05/08/2021 9:37 AM EDT documented in this encounter Discharge Instructions Discharge InstructionsPb No RN - 05/08/2021 10:43 AM EDT Colonoscopy: What to Expect at Home Your Recovery Your doctor will talk to you about when you will need your next colonoscopy. Your doctor can help you decide how often you need to be checked. This will depend on the results of your test and your riskfor colorectal cancer. After the test, you may be bloated or have gas pains. You may need to pass gas. If a biopsy was doneor a polyp was removed, you may have streaks of blood in your stool (feces) for a few days. Problemssuch as heavy rectal bleeding may not occur until several weeks after the test. This isn't common. But it can happen after polyps are removed. This care sheet gives you a general idea about how long it will take for you to recover. But each person recovers at a different pace. Follow the steps below to get better as quickly as possible. How can you care for yourself at home? Activity Rest when you feel tired. ?? You can do your normal activities when it feels okay to do so. Diet ?? Follow your doctor's directions for eating. ?? Unless your doctor has told you not to, drink plenty of fluids. This helps to replace the fluidsthat were lost during the colon prep. ?? Do not drink alcohol. Medicines ?? Your doctor will tell you if and when you can restart your medicines. He or she will also give you instructions about taking any new medicines. ?? If you take blood thinners, such as warfarin (Coumadin), clopidogrel (Plavix), or aspirin, be sure to talk to your doctor. He or she will tell you if and when to start taking those medicines again.Make sure that you understand exactly what your doctor wants you to do. ?? If polyps were removed or a biopsy was done during the test, your doctor may tell you not to take aspirin or other anti-inflammatory medicines for a few days. These include ibuprofen (Advil, Motrin) and naproxen (Aleve). Other instructions ?? For your safety, do not drive or operate machinery until the medicine wears off and you can think clearly. Your doctor may tell you not to drive or operate machinery until the day after your test. ?? Do not sign legal documents or make major decisions until the medicine wears off and you can think clearly. The anesthesia can make it hard for you to fully understand what you are agreeing to. Additional Information for Sedation Patients For patients who received sedation: ?? You may have received medications before and/or during your procedure which effects your judgement and reaction time. ?? Do not drive, operate machinery, drink alcoholic beverages or make important decisions for 24 hours. ?? Be careful on stairs as you may be unsteady on your feet. ?? You may eat a regular diet as tolerated. ?? Do not smoke if you are alone. ?? IV site: Slight redness or tenderness is normal, you can use a warm compress if you would like. If tenderness and/or redness increase or if foul drainage occurs, please contact your Doctor. Please call [phone] before 8pm Mon-Fri with problems, questions or concerns. If you call after 8pm or on weekends, call the Hospital at [phone] and ask to speak to the Post Commander auto inspection specialist and the sawmill equipment operator will contact that person for you. When should you call for help? Call 341 anytime you think you may need emergency care. For example, call if: ?? You passed out (lost consciousness). ?? You pass maroon or bloody stools. ?? You have trouble breathing. Call your doctor now or seek immediate medical care if: ?? You have pain that does not get better after you take pain medicine. ?? You are sick to your stomach or cannot drink fluids. ?? You have new or worse belly pain. ?? You have blood in your stools. ?? You have a fever. ?? You cannot pass stools or gas. Watch closely for changes in your health, and be sure to contact your doctor if you have any problems. Where can you learn more? [facility] View your After Visit Summary and more online at [email or web address] If you would like to provide feedback about your hospital experience, please call the Office of Patient and Family Relations at . If you have received this After Visit Summary in error, please immediately return it in person to the department, or notify the - Privacy Office by calling toll free at between the hours of 8AM and 5PM to arrange for our retrieval of the documents at no cost to you. Content Version: 12.2 ?? [id number] [employer]. Care instructions adapted under license by [facility]. If you have questions about a medical condition or this instruction, always ask your healthcare professional. [employer] disclaims any warranty or liability for your use of this information. Patient InstructionsGoWade sanchez MD - 05/08/2021 10:43 AM EDT Please see Recommendations in the [...] encounter H&P Notes Wade Rivera MD - 05/08/2021 10:04 AM EDT Gastroenterology and Hepatology Pre-Procedure History and Physical Exam Procedure: Colonoscopy: Indication: Polyp surveillance, rectal bleeding. Patient Active Problem List Diagnosis Code ??? [...] Op Note - Wade Rivera MD - 05/08/2021 10:17 AM EDT [facility] Operative Note Patient Name: Sophia Banegas : [id number] MR#: [id number] Case Date: 05/08/2021 Surgeon: Surgeon(s) and Role: * Wade Rivera MD - Primary Preoperative diagnosis: 2 yr surv from 05/18/19 Sooner because of: Personal hx polyps Rectal Bleeding Postoperative diagnosis: * No post-op diagnosis entered * Procedure(s) (LRB): COLONOSCOPY, DIAGNOSTIC (N/A) Anesthesia: MAC Full procedure note is documented under the Procedure section of eDH. documented in this encounter Plan of Treatment Not on filedocumented as of this encounter Procedures Procedure Name Priority Date/Time Associated Comments Diagnosis COLONOSCOPY, 05/08/2021 9:55 AM 2 yr surv from DIAGNOSTIC EDT 05/18/19 Sooner because o f: Personal hx poly ps Rectal Bleeding COLONOSCOPY Routine 05/08/2021 9:38 AM Results f or this EDT procedure are i n the results section. documented in this encounter Results COLONOSCOPY (05/08/2021 9:38 AM EDT) Component Value Ref Test Analysis Performed At [facility] Method Time Signature COLONOSCOPY [facility] PROVATION Endoscopy Procedure Date: 05/08/2021 9:38 AM ? Patient Name: Sophia Banegas ? Date of : 1955 ? Age: 65 ? Order #: [id number] ? Instrument Name: [id number] ? Procedure: ? Colonoscopy Indications: ? High risk colon cancer surveillance : ? Personal history of colonic p olyps, ? Incidental - Hematochezia Providers: ? Wade Rivera MD, Derek Doll ? JASSI Mathis, Daniela Evans ? Chelsea Souza Referring MD: ?Anita Adjovu Medicines: ? Propofol per Anesthesia Complications: ? No immediate complications. Procedure: ? [...] and informed consent was obta ined. ? - ASA Grade Assessment: II - A ? patient with mild systemic di sease. ? - Using IV propofol under the ? supervision of an anesthesiol ogist ? was determined to be medicall y ? necessary for this procedure based on ? age 65 or older and patient's history ? of problems with anesthesia. ? The procedure, indications, b enefits, ? [...] ? colonoscope was withdrawn. Th e ? patient tolerated the procedu re well. ? The quality of the bowel prep aration ? was excellent. The quality of the ? bowel preparation was evaluat ed using ? the BBPS ([place] Bowel Prepar ation ? Scale) with scores of: Right Colon = ? 3, Transverse Colon = 3 and L eft ? Colon = 3 (entire mucosa seen well ? with no residual staining, sm all ? fragments of stool or opaque liquid). ? The total BBPS score equals 9 . The ? total duration of the procedu re was ? 25 minutes. Scope withdrawal time was ? 9 minutes. ? Findings: ? The perianal and digital rectal examinations were ? normal. ? The terminal ileum appeared normal. ? Multiple small-mouthed diverticula were found in the ? sigmoid colon. ? A tattoo was seen in the recto-sigmoid colon. There ? was no evidence of residual polyp tissue. ? Internal hemorrhoids were found during retroflexion. ? The hemorrhoids were moderate. ? The exam was otherwise without abnormality. ? Moderate Sedation: ? Not applicable - See Anesthesia documentation Impression: ?- The examined portion of the ileu m ? was normal. ? - Diverticulosis in the sigmo id colon. ? - A tattoo was seen in the ? recto-sigmoid colon. There wa s no ? evidence of residual polyp ti ssue. ? - Internal hemorrhoids are li dangelo ? source of recent self-limited rectal ? bleeding. ? - The examination was otherwi se ? normal. ? - No specimens collected. Recommendation: ?- Repeat colonoscopy in 3 years for ? surveillance. ? Attending Participation: ? I personally performed the entire procedure. ? Wade Rivera MD 05/08/2021 10:43:00 AM This report has been signed electronically. Number of Addenda: 0 Note Initiated On: 05/08/2021 9:38 AM Specimen (Source) Anatomical Collection Method Collection Time Re ceived Time Location / / Volume Laterality 05/08/2021 9:38 AM EDT Anita Adjovu SKIP LOAD DRIVER GENERAL SURGICAL ORDERABLES Performing Organization Address City/State/ZIP Code Phon e Number PROVATION documented in this encounter Visit Diagnoses Not on filedocumented in this encounter Administered Medications Inactive Administered Medications - up to 3 most recent administrations Medication Order MAR Action Action Date Dose Rate Site lactated ringers infusion New Bag 05/08/2021 9:46 AM EDT 100 mL/hr 100 mL/hr 100 mL/hr, Intravenous, CONTINUOUS, Starting on Fri05/08/21 at 0945, Until Fri05/08/21 at 1105, Endoscopy (Day of Procedure) documented in this encounter Active and Recently Administered Medications Times are shown in EDT. Continuous Medication Order 05/06/2021 05/07/2021 05/08/2021 lactated ringers infusion (CANCELED) 0946 (New Bag - Provider: Yojana Bangura, RN) 100 mL/hr, at 100 mL/hr, Intravenous, CO NTINUOUS, Starting on Fri05/08/21 at 0945, Until Fri05/08/21 at 1105, Endo (Day of Procedure) documented in this encounter Care Teams Poultry Husbandman Relationship Specialty Start Date End Date Anita Lea APRN PCP - General Family Medicine 05/14/19 10/11/[address] [place] [address] documented as of this encounter
--- OUTSIDE RECORDS SUMMARY | 2022-07-26 00:34 | XMS_ITS | Encounter Summary ---
:1955 Author Organization [facility] [place] [address] Care Team Providers Name Role Phone Anita Lea APRN Primary Care Provider Encounter Details Date Type Department Care Team Description 05/18/2019 Surgery Gastroenterology at [facility] Wade Rivera, COLONOSCOPY, [facility] Dav [place] [address] [facility] [phone] GASTROENTEROLOGY DEPT. [place], [place] [address] Social History Tobacco Use Types [...] Sign Reading Time Taken Comments Blood Pressure 159/72 05/18/2019 11:00 AM EDT Pulse 58 05/18/2019 8:50 AM EDT Temperature 36.4 ??C (97.6 ??F) 05/18/2019 8:50 AM EDT Respiratory Rate 16 05/18/2019 10:30 AM EDT Oxygen Saturation 99% 05/18/2019 11:00 AM EDT Inhaled Oxygen Concentration - - Weight 71.2 kg (157 lb) 05/18/2019 8:50 AM EDT Height 167.6 cm (5' 6) 05/18/2019 8:50 AM EDT Body Mass Index 25.34 05/18/2019 8:50 AM EDT documented in this encounter Discharge Instructions Discharge InstructionsDerek Mathis RN - 05/18/2019 11:20 AM EDT Colonoscopy [...] to be checked. Friday-Friday Same Day Endo [phone] 7a-8p Otherwise contact [phone] and ask to speak to the air cargo agent lead mason tender Follow up care is a landon part of your treatment and safety. Be sure to make and go to all appointments, and call your doctor if you are having problems. Discharge instructions reviewed with patient who expresses understanding Patient InstructionsGoWade sanchez MD - 05/18/2019 10:33 AM EDT Please [...] Rivera MD - 05/18/2019 10:33 AM EDT [facility] Operative Note Patient Name: Sophia Montes De Oca : [id number] MR#: [id number] Case Date: 05/18/2019 Surgeon: Surgeon(s) and Role: [...] encounter Results COLONOSCOPY (05/18/2019 9:22 AM EDT) [facility] Method Time Signature COLONOSCOPY [facility] PROVATION Endoscopy Procedure Date: 05/18/2019 9:22 AM ? Patient Name: Sophia Montes De Oca ? Date of : 1955 ? Age: 63 ? Order #: [id number] ? Instrument Name: [id number] ? Procedure: ? Colonoscopy Indications: ? Follow-up for history of adenomatou s ? polyps in the colon Providers: ? Wade Rivera MD, Landy Kim [facility], ? Hina Stein ? Marv, Outboard Motor Mechanic Referring : ?Claudia Perez Medicines: ? Monitored [...] was evaluat ed using ? the BBPS ([place] Bowel Prepar ation ? Scale) with scores [...] Procedure Code(s): ?? --- Professional --- ? 02945, GC, Colonoscopy, flexi ble; ? diagnostic, including [...] ? abscess without bleeding CPT copyright 2017 [employer]. All rights reserved. The codes documented in this report are preliminary and upon certified professional coder review may be revised to meet current [...] Procedure) documented in this encounter Care Teams Crime Scene Evidence Technician Relationship Specialty Start Date End Date Anita Lea APRN PCP - General Family Medicine 05/14/19 10/11/[address] [place] [address] documented as of this encounter
--- OUTSIDE RECORDS SUMMARY | 2022-07-26 00:34 | XMS_ITS | Encounter Summary ---
:1955 Author Organization [facility] [place] [address] Care Team Providers Name Role Phone Anita Lea RETORT FEEDER GROUND BONE Primary Care Provider Encounter Details Date Type Department Care Team Description 09/28/2019 Telephone Vascular Surgery at [facility] [place] [address] Social History Tobacco Use Types Packs/Day [...] this encounter Miscellaneous Notes Telephone Encounter - Natalia Salazar - 09/28/2019 10:54 AM EST YELLOW/RECALL LIST: RECALL PROVIDER: BROOK RECALL: Bilat CAR DUP- carotid stenosis NOTES: Patient declined appt Notified provider REMOVED RECALL PER DEPT PROTOCOL documented in this encounter Plan of Treatment Not on filedocumented as of this encounter Visit Diagnoses Not on filedocumented in this encounter Care Teams Clerical Assigner Relationship Specialty Start Date End Date Anita Lea APRN PCP - General Family Medicine 05/14/19 10/11/21 [address] [place] [address] documented as of this encounter
--- OUTSIDE RECORDS SUMMARY | 2022-07-26 00:34 | XMS_ITS | Encounter Summary ---
:1955 Author Organization [facility] [place] [address] Care Team Providers Name Role Phone NghiaboubacarClaudia APRN Primary Care Provider Encounter Details Date Type Department Care Team Description 11/07/2017 Hospital Encounter Gastroenterology at [facility] Aldo Limon, [facility] [place] [address] [facility] [phone] [place], [place] [address] Social History Tobacco Use Types [...] Sign Reading Time Taken Comments Blood Pressure 129/81 11/07/2017 10:45 AM EST Pulse 69 11/07/2017 10:18 AM EST Temperature - - Respiratory Rate 18 11/07/2017 10:30 AM EST Oxygen Saturation 96% 11/07/2017 10:45 AM EST Inhaled Oxygen Concentration - - Weight 73.9 kg (163 lb) 11/07/2017 8:55 AM EST Height 168.9 cm (5' 6.5) 11/07/2017 8:55 AM EST Body Mass Index 25.91 11/07/2017 8:55 AM EST documented in this encounter Discharge Instructions Discharge InstructionsEdwin Todd RN - 11/07/2017 10:30 AM EST Colonoscopy [...] to be checked. Friday-Friday Same Day Endo [phone] 7a-8p Otherwise contact [phone] and ask to speak to the supervisor turkey farm buttonhole facer Follow up care is a landon part [...] from anal verge with endoscopic removal in 2011, 2013x2, 2014, 2015, 2016 and in 2017. [...] Limon MD - 11/07/2017 10:20 AM EST [facility] Operative Note Patient Name: Sophia Montes De Oca : [id number] MR#: [id number] Case Date: 11/07/2017 Surgeon: Surgeon(s) and Role: [...] Component Value Ref Test Analysis Performed At [facility] Method Time Signature Surgical [id number] ? Location: 4T; EA; A [facility] Pathology [place] Report The signing pathologist has (i) examined the relevant preparation(s) for the MEMORIAL specimen(s) and (ii) rendered or confirmed the diagnosis(es) . HOSPITAL LABORATORY . ?Surgic al Pathology DIAGNOSIS Rectosigmoid colon at 20 cm, biopsy: Colonic mucosa, negative for dysplasia. Electronically signed by: ??Kuldeep MUNSON, [place] Verified: ??11/13/2017 ?Pathologist Performed at: ??-[facility] Dept. of Pathology, [place], [place] CLINICAL INFORMATION Specimen Submitted: A - [...] MD PATHOLOGY/CYTOLOGY ORDERABLE S Performing Organization Address [facility]/ZIP Code Phon e Number [address] Specimen to Pathology (11/07/2017 10:18 AM EST) Specimen Anatomical Collection Method Collection Time Receive d Time (Source) Location / / Volume Laterality AP Specimen 11/07/2017 10:18 11/07/2017 1:16 AM EST PM EST Narrative [facility] - 11/07/2017 1:16 PM EST Specimen requisition ordered. ??Separate Pathology report to follow Resulting Agency Comment Spec In Lab Aldo Limon MD PATHOLOGY/CYTOLOGY ORDERABLE S Performing Organization Address City/[facility]/ZIP Code Phon e Number [address] COLONOSCOPY (11/07/2017 9:29 AM EST) [facility] gist Method Time Signature COLONOSCOPY [facility] PROVATION Endoscopy Procedure Date: 11/07/2017 9:29 AM ? Patient Name: Sophia Montes De Oca ? Date of : 1955 ? Age: 62 ? Order #: [id number] ? Instrument Name: [id number] ? Procedure: ? Colonoscopy Indications: ? High [...] Th e ? colonoscopy was performed wit boubacar vuong. ? The patient tolerated the pro [...] terminal ilium. ? - Personal history of TVA req uiring ? multiple procedures per H&P. Recommendation: ?- [...] Laterality 11/07/2017 9:29 AM EST Claudia Perez SAUSAGE CUTTER GENERAL SURGICAL ORDERABLES Performing Organization Address City/State/ZIP Code Phon e Number [employer]OVATION documented in this encounter Visit Diagnoses Not on filedocumented in this encounter Administered Medications Inactive Administered Medications - up to 3 most recent administrations Medication Order MAR Action Action Date Dose Rate Site lactated Ringers infusion New Bag 11/07/2017 9:14 AM EST 50 mL/hr 50 mL/hr 50 mL/hr, Intravenous, CONTINUOUS, Starting on Fri11/07/17 at 0915, Until Fri11/07/17 at 1108, Endoscopy (Day of Procedure) documented in this [...] Edwin De Jesus RN) ONCE PRN, Starting Fri11/07/17 at 0940, U ntil Fri11/07/17 at 1334, Intra-Operative (Intra-Procedure), Routine midazolam (PF) [...] Routine documented in this encounter Care Teams Welder Plastic Relationship Specialty Start Date End Date Claudia Perez APRN PCP - General 05/05/15 05/13/19 documented as of this encounter
--- OUTSIDE RECORDS SUMMARY | 2022-07-26 00:34 | XMS_ITS | Encounter Summary ---
:1955 Author Organization [facility] [place] [address] Care Team Providers Name Role Phone Anita Lea APRN Primary Care Provider Encounter Details Date Type Department Care Team Description 06/04/2019 Hospital Encounter Mammography/DXA at Claudia Perez Encounter for [facility] COLLECT ON DELIVERY CLERK screening mammogram [facility] [address] [place] [address] [phone] Social History Tobacco Use Types Packs/Day Years [...] Diagnosis Comme nts MAMMO SCREENING CAD Routine 06/04/2019 8:44 AM Encounter for R esults for this AND JAKOB BILATERAL EDT screening mammogram pr ocedure are in for breast cancer the result s section. documented in this encounter Results Mammo Screening Cad and Jakob Bilateral (06/04/2019 8:44 AM EDT) Anatomical Region Laterality Modality Breast Bilateral Mammography Specimen (Source) Anatomical Location Collection Method / Collectio n Time Received Time / Laterality Volume Narrative 06/04/2019 9:33 AM EDT BILATERAL MAMMOGRAPHY REASON FOR EXAM: Screening TECHNIQUE: CC and MLO views were obtaine d of each breast using standard 2-D mammography as well as 3-D tomosynth esis. Computer aided detection was used. This is compared with prior images . FINDINGS: ??The breasts are heterogeneou sly dense, which may obscure small masses. There are no suspicious microcal cifications, masses, or areas of distortion. The pattern is stable. CONCLUSION: No mammographic evidence of malignancy. RECOMMENDATION: Medical organizations ag ree that annual screening mammography beginning at age 40 saves th e most lives. The risks of screening are negligible compared to dyi ng from breast cancer or suffering from more aggressive treatment required when detected at a later stage. No woman is at low risk for breast cancer. Some women, because of their family history, a genetic tendency, or c ertain other factors, should be screened with breast MRI along with mamm ograms. (The number of women who fall into this category is very small). The patient and health care provider should discuss the patient hist ory and decide if earlier screening and breast MRI are appropriate . Screening should continue as long as a woman is in good health and is expected to live 10 years or longer. Screening mammography may not de tect 10-15% of breast cancers. Women should report any breast changes t o a health care provider right away. A result letter has been sent to this rodri rayo by [facility]. BIRADS CATEGORY 1: NEGATIVE Claudia Perez APRN IMG MAMMO ORDERABLES documented in this encounter Visit Diagnoses Diagnosis Encounter for screening mammogram for br east cancer documented in this encounter Care Teams Chemical Reclamation Equipment Operator Relationship Specialty Start Date End Date Anita Lea APRN PCP - General Family Medicine 05/14/19 10/11/[address] [place] [address] documented as of this encounter
--- OUTSIDE RECORDS SUMMARY | 2022-07-26 00:34 | XMS_ITS | Encounter Summary ---
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 - per OK to schedule flex sig this year not colo Procedures PRO SIGMOIDOSCOPY, DIAGNOSTIC FLEXIBLE SIGMOIDOSCOPY Referral ID Status Reason Start Date Expiration Date Visits Requ ested Visits Authorized [id number] 1 1 Encounter Details Date Type Department Care Team Description 11/27/2018 Surgery Gastroenterology at [facility] June Tamayo, FLEXIBLE SIGMOIDOSCOPY [facility] [place] [address] [facility] [phone] Center Gastroenterology [place], [place] [address] Social History Tobacco Use Types [...] Sign Reading Time Taken Comments Blood Pressure 169/75 11/27/2018 9:53 AM EST Pulse 75 11/27/2018 9:53 AM EST Temperature 36.1 ??C (97 ??F) 11/27/2018 9:53 AM EST Respiratory Rate 16 11/27/2018 9:53 AM EST Oxygen Saturation 98% 11/27/2018 9:53 AM EST Inhaled Oxygen Concentration - - Weight - - Height - - Body Mass Index - - documented in this encounter Discharge Instructions AttachmentsThe following attachments cannot be sent through Care Everywhere. SIGMOIDOSCOPY: POST-OP (KOSOVAN)documented in this encounter Medications at Time of Discharge Medication Sig Dispensed Refills Start Date End Date ascorbic acid, vitamin C, Take 1,000 mg by 0 (VITAMIN C) 1,000 mg Tablet mouth daily. multivitamin (THERAGRAN) 0 12/04/2010 tablet documented as of this encounter H&P Notes June Tamayo MD - 11/27/2018 10:55 AM EST Patient Name: Sophia Montes De Oca Patient Age: 63 y.o. Birthdate: 1955 Admit date: 11/27/2018 Attending Physician: June Tamayo MD Gastroenterology and Hepatology Pre-Procedure History and Physical Exam Procedure: flex sig Indication: surveillance of adenomatous polyp Patient Active Problem List Diagnosis Code ??? Asymptomatic bilateral carotid artery stenosis I65.23 EXAM: HEENT: Airway examined, oropharynx clear Mallampati Score: II (soft palate, uvula, fauces visible) LUNGS: Clear to auscultation HEART: Regular rate and rhythm, normal S1, S2 ABDOMEN: Normal bowel sounds, soft, non tender, non distended, A/P Proceed with the planned endoscopic procedure. ASA 1 - Normal health patient Sedation Plan: no sedation Risks and benefits of the procedure explained to the patient. Consent signed. documented in this encounter Plan of Treatment Not on filedocumented as of this encounter Procedures Procedure Name Priority Date/Time Associated Diagnosis Comme [facility] SURGICAL PATHOLOGY Routine 11/27/2018 11:41 Resul ts for this REPORT AM EST procedure are i n the results section. SPECIMEN TO PATHOLOGY Routine 11/27/2018 11:41 Re sults for this AM EST procedure are i n the results section. FLEXIBLE SIGMOIDOSCOPY 11/27/2018 11:01 Colon 1 year f or hx AM EST of recurrent TVA requiring multiple procedures - per OK to schedule flex sig this year not co lo. Patient was unable to come in the afternoon and did not see any morning appointments with Dr. Limon on the days she was able to come in, patient said she would be ok with seeing another provider as long as Dr. Limon still got results. FLEXIBLE SIGMOIDOSCOPY Routine 11/27/2018 10:54 R esults for this AM EST procedure are i n the results section. documented in this encounter Results Surgical Pathology Report (11/27/2018 11:41 AM EST) Component Value Ref Test Analysis Performed At [facility] Range Method Time Signature Surgical [id number] ? Location: ; [facility]; [facility] Report The signing pathologist has (i) examined the relevant preparation(s) for the [facility]ORIAL specimen(s) and (ii) rendered or confirmed the diagnosis(es) . HOSPITAL LABORATORY . ?Surgic al Pathology DIAGNOSIS Sigmoid colon, ??polypectomy: Fragments of hyperplastic polyp. One fragment of tissue with villous architecture and marke d crush artifact, suspicious for low grade dy splasia (possible a fragment of tubulovillous adenoma). CR-PX Electronically signed by: ??Savannah Light MD Verified: ??12/02/2018 ?Pathologist Performed at: ??-[facility] Dept. of Pathology, [place], [place] DISCUSSION Additional levels examined. CLINICAL INFORMATION Specimen Submitted: A - Sigmoid colon polyps Clinical History and Diagnosis: 63-year-old female with history of polyp SPECIMEN PROCESSING A - Labeled/Fixative: Sigmoid colon polyps, formalin. Quantity/Size: Multiple, 0.re-growth.3 cm. Tissue Description: Soft, pink tissues. Sections/Processing: Submitted en toto ??in 2 cassettes labeled A1-A2. ??ejr Specimen (Source) Anatomical Collection Method Collection Time Re ceived Time Location / / Volume Laterality 11/27/2018 11:41 AM EST June Tamayo MD PATHOLOGY/CYTOLOGY ORDERABLE S Performing Organization Address City/State/[place] [address] Specimen to Pathology (11/27/2018 11:41 AM EST) Specimen Anatomical Collection Method Collection Time Receive d Time (Source) Location / / Volume Laterality AP Specimen 11/27/2018 11:41 11/27/2018 AM EST 11:41 AM EST Narrative [facility] - 11/27/2018 11:41 AM EST Specimen requisition ordered. ??Separate Pathology report to follow June Tamayo MD PATHOLOGY/CYTOLOGY ORDERABLE S Performing Organization Address City/[facility]/[place]IP [place] [address] FLEXIBLE SIGMOIDOSCOPY (11/27/2018 10:54 AM EST) Component Value Ref Test Analysis Performed At [facility] Range Method Time Signature FLEXIBLE [facility] SIGMOIDOSCOPY Endoscopy Procedure Date: 11/27/2018 10:54 AM ? Patient Name: Sophia Montes De Oca ? N: [id number] ? Date of : 1955 ? Age: 63 ? Order #: [id number] ? Instrument Name: [id number] ? Procedure: ? Flexible Sigmoidoscopy Indications: ? Surveillance: History of piecemeal ? removal adenoma on last colon oscopy ? (< 3 yrs), multiple recurrenc es Providers: ? June Tamayo MD, Delilah zavala, ? RN, Pb Cavazos her Referring MD: ?Claudia Perez, Aldo Limon Medicines: ? None Complications: ? No immediate complications. Procedure: ? The procedure, indications, benefi ts, ? risks and alternatives were e xplained [...] direct visuali zation, ? advanced to the descending co sergey. ? Careful inspection was made a s the ? scope was withdrawn. The flex ible ? sigmoidoscopy was accomplishe d ? without difficulty. The patie nt ? tolerated the procedure fairl y well. ? The quality of the bowel prep aration ? was good. ? Findings: ? The perianal and digital rectal examinations were ? normal. ? A tattoo was identified at 20cm along the left ? lateral wall of the colon. A 2mm flat polyp ? (hyperplastic-appearing) was identified in this area ? and removed with a cold biopsy forceps for histology. ? Resected and retrieved. On the opposing wall at about ? 2 o'clock there was 4mm of sessile, villous-appearing ? polypoid tissue. With some difficulty due to the ? location, it was able to be re-positioned for ? resection. The underlying colonic tissue felt ? fibrotic and was difficult to grasp. The polyp ? removed with a hot snare. Additional resection of the ? area was completed with cold biopsy forceps. ? Moderate Sedation: ? Patient refused medication, requested procedure ? without sedation medication. Impression: ?- 4mm sessile polyp at the tattoo ? site, presumably recurrent vi llous ? adenoma, removed with a hot s nare and ? cold biopsy forceps. Addition al ? diminutive 2mm benign-appeari ng ? polyp. Resected and retrieved . Recommendation: ?- Await pathology results. ? - Repeat exam based on pathol ogy ? results. Recommend referral t o . ? Miguel. ? Attending Participation: ? I personally performed the entire procedure. ? Dr. June Tamayo June Tamayo MD 11/27/2018 12:08:11 PM Number of Addenda: 0 Note Initiated On: 11/27/2018 10:54 AM Specimen (Source) Anatomical Collection Method Collection Time Re ceived Time Location / / Volume Laterality 11/27/2018 10:54 AM EST Claudia Perez APRN GENERAL SURGICAL ORDERABLES Performing Organization Address City/State/ZIP Code Phon e Number [employer] documented in this encounter Visit Diagnoses Not on filedocumented in this encounter Active and Recently Administered Medications Care Teams Physician Locums Urgent Care Relationship Specialty Start Date End Date Claudia Perez APRN PCP - General 05/05/15 05/13/19 documented as of this encounter
--- OUTSIDE RECORDS SUMMARY | 2022-07-26 00:34 | XMS_ITS | Encounter Summary ---
:1955 Author Organization [facility] [place] [address] Care Team Providers Name Role Phone Anita Lea WALESKA Primary Care Provider Reason for Referral Consultation (Routine) - Closed Specialty Diagnoses / Procedures Referred By Contact Refer red To Contact Gastroenterology Diagnoses Lower abdominal pain Herb Fernandez MD [facility] Gastro 4l [facility] OBSTETRICS & [facility] [place] [address] [place] [address] Referral ID Status Reason Start Date Expiration Date Visits V isits Requested Authorized [id number] Closed Consult, 12/13/2019 12/12/2020 1 1 Test & Treat Encounter Details Date Type Department Care Team Description 12/13/2019 Orders Only Obstetrics and Herb Fernandez M D Lower abdominal pain Gynecology at [facility] [address] [place] [address] GYNECOLOGY [phone] [place], [place] [address] (Wo rk) Social History Tobacco [...] as of this encounter Plan of Treatment Scheduled Referrals Name Type Priority Associated Order Schedule Diagnoses Referral to Outpatient Routine Lower abdominal Ordered: Gastroenterology Referral pain 12/13/2019 documented as of this encounter Visit Diagnoses Diagnosis Lower abdominal pain Abdominal pain, other specified site documented in this encounter Care Teams Production Superintendent Hydro Relationship Specialty Start Date End Date Anita Lea APRN PCP - General Family Medicine 05/14/19 10/11/[address] [place] [address] documented as of this encounter
--- OUTSIDE RECORDS SUMMARY | 2022-07-26 00:34 | XMS_ITS | Encounter Summary ---
:1955 Author Organization [facility] Address [address] [place] [address] Care Team Providers Name Role Phone Claudia Perez APRN Primary Care Provider Encounter Details Date Type Department Care Team Description 06/03/2018 Hospital Encounter Mammography at [facility] Claudia Perez Encounter for [facility] WALESKA Benjamin screening mammogram Drive [address] for breast cancer [facility] [address] [place], [place] [phone] [id number] Social History Tobacco Use Types Packs/Day Years [...] Diagnosis Comme nts MAMMO SCREENING CAD Routine 06/03/2018 9:18 AM Encounter for R esults for this AND JAKOB BILATERAL EDT screening mammogram pr ocedure are in for breast cancer the result s section. documented in this encounter Results Mammo Screening Cad and Jakob Bilateral (06/03/2018 9:18 AM EDT) Anatomical Region Laterality Modality Breast Bilateral Mammography Specimen (Source) Anatomical Location Collection Method / Collectio n Time Received Time / Laterality Volume Narrative 06/03/2018 9:47 AM EDT BILATERAL MAMMOGRAPHY REASON FOR EXAM: [...] CONCLUSION: No mammographic evidence of malignancy. RECOMMENDATION: The [employer] and The Society of Breast Imaging recommend annual screenin g beginning at age 40 for the general female population. Screening surinder uld continue as long as a woman is in good health and is expected to live 1 0 more years or longer. All women should be familiar with the known benefi ts, limitations, and potential harms linked to breast cancer screening. They should also know how their breasts normally look and feel and repor t any breast changes to a health care provider right away. Some women - b ecause of their family history, a genetic tendency, or certain other facto rs - should be screened with MRIs along with mammograms. (The number of wo men who fall into this category is very small.) The patient and health care provider should discuss the patient history and decide if earlier sc reening and breast MRI are appropriate. A result letter has been sent to this rodri rayo by the [facility]. BIRADS CATEGORY 1: NEGATIVE Claudia Perez APRN IMEvelin MAMMO ORDERABLES documented in this encounter Visit Diagnoses Diagnosis Encounter for screening mammogram for br east cancer documented in this encounter Care Teams Hazmat Technician Relationship Specialty Start Date End Date Claudia Perez APRN PCP - General 05/05/15 05/13/19 documented as of this encounter
--- OUTSIDE RECORDS SUMMARY | 2022-07-26 00:34 | XMS_ITS | Encounter Summary ---
:1955 Author Organization [place] [address] Care Team Providers Name Role Phone Anita Lea APRN Primary Care Provider Encounter Details Date Type Department Care Team Description 05/18/2019 Anesthesia Event Gastroenterology at [facility] Raza Concepcion, [facility] [place] [address] [facility] [phone] ANESTHESIOLOGY DEPT. [place], [place] [address] Anesthesia Record Procedure Summary Procedure Name Responsible Anesthesia Start Anesthesia Stop Anesthesiologist Time Time COLONOSCOPY, Raza Concepcion MD 05/18/19 0934 05/18/19 101 0 DIAGNOSTIC (N/A Trunk) Events Date Time Event Comment 05/18/2019 0931 0934 AN Verify 0934 Start 0934 An Start Data 0940 An Induction 0940 Anesthesia Ready 0948 Procedure Start 1010 Procedure Stop 1010 an stop data 1010 Recovery or ICU Handoff Patient care was transferred to the destination unit staff after review of the patient's medica l history, current anesthetic/surgi hector status and plan, according to the Provider Handoff Checklist. 1010 Stop Name Total Propofol 50 mg Propofol INF 427.2 mg Lactated Ringers 800 mL Agents Name O2 Air N2O O2 Auxiliary Flowmeter 1 Blood No blood administrations on file. Lines, Drains, and Airways Type Details Placement Removal PIV 05/18/19 (placed by Raeann Alarcon 05/18/19 0857 by Tammy alarcon, 05/08/21 0000 by JASSI Bangura); 0857; median cubital JASSI Mckeon RN vein (antecubital fossa), right; 20 gauge; intradermal injection; 05/08/21 (not present) documented in this encounter Social History Tobacco Use Types Packs/Day Years [...] PM EDT documented as of this encounter OR Notes Anesthesia Postprocedure Evaluation - Raza Concepcion MD - 05/18/2019 10:32 AM EDT Department of Anesthesiology Post-procedure Note Patient: Sophia Montes De Oca Procedure Summary Date: 05/18/19 Room / Location: [facility] 2 / [facility] Anesthesia Start: 933 Anesthesia Stop: 1009 Procedure: COLONOSCOPY, DIAGNOSTIC (N/A Trunk) Diagnosis: (recurring TVA in the rectosigmoid colon. Per Dr. Rivera 90 minutes with Prop) (split dose) Surgeon: Wade Rivera MD Responsible Provider: Raza Concepcion MD Anesthesia Type: MAC ASA Status: 2 All Anesthesia Providers: Anesthesiologist: Raza Concepcion MD JUNIOR WEB DESIGNER: Eron Hurst CRNA Vitals Value Taken Time BP 120/69 05/18/2019 10:30 AM Temp Pulse Resp 16 05/18/2019 10:15 AM SpO2 100 % 05/18/2019 10:31 AM Pain Level 0 05/18/2019 10:15 AM Vitals shown include unvalidated device data. Patient Location: PACU/[facility] Level of Consciousness: Conscious but Sleepy Pain Management: Satisfactory Analgesia PONV: None Cardiovascular Status: At Baseline Respiratory Status: At Baseline and Room Air Postoperative Fluid Status: Intravascular EUvolemia Possible Anesthetic Complications: NONE apparent at time of evaluation Final Primary Anesthesia Type: MAC (The anesthetic type performed was the same as planned.) Comments: Anesthesia Preprocedure Evaluation - Raza Concepcion MD - 05/18/2019 9:29 AM EDT Pre-Anesthesia Evaluation for: Sophia Montes De Oca a 63 y.o. female. Procedure(s): COLONOSCOPY, DIAGNOSTIC Patient Active Problem List Diagnosis ??? History of palpitations ??? Asymptomatic bilateral carotid artery stenosis Past Medical History: Diagnosis Date ??? Arthritis ??? Cardiac disease ??? Tick bites Past Surgical History: Procedure Laterality Date ??? BREAST BIOPSY Right 2005 b9 ??? PRO COLONOSCOPY, BIOPSY N/A 11/07/2017 COLONOSCOPY FLEXIBLE, WITH BX (WRVU 3.66) performed by Aldo Limon MD at [facility] ??? PRO COLONOSCOPY, DIAGNOSTIC N/A 07/13/2015 COLONOSCOPY, DIAGNOSTIC performed by Anais Renner MD at [facility]COPY ??? PRO COLONOSCOPY, REMV LESN, SNARE 12/23/2011 COLONOSCOPY, POLYPECTOMY, REMOVAL LESION BY SNARE performed by LENNOX CLARK at [facility] ??? PRO COLONOSCOPY, REMV LESN, SNARE N/A 07/13/2015 COLONOSCOPY, POLYPECTOMY, REMOVAL LESION BY SNARE performed by Anais Renner MD at [facility] ??? PRO SIGMOIDOSCOPY, BIOPSY 12/23/2012 SIGMOIDOSCOPY, FLEXIBLE; WITH BIOPSY, SINGLE OR MULTIPLE performed by Lennox Clark [facility] ??? PRO SIGMOIDOSCOPY, DIAGNOSTIC 12/23/2012 FLEXIBLE SIGMOIDOSCOPY performed by Lennox Clark MD at [facility] ??? PRO SIGMOIDOSCOPY, DIAGNOSTIC 07/06/2013 FLEXIBLE SIGMOIDOSCOPY performed by Lennox Clark MD at [facility] ??? PRO SIGMOIDOSCOPY, DIAGNOSTIC 07/12/2014 FLEXIBLE SIGMOIDOSCOPY performed by Lennox Clark MD at [facility] ??? PRO SIGMOIDOSCOPY, DIAGNOSTIC N/A 07/15/2016 FLEXIBLE SIGMOIDOSCOPY performed by Lennox Clark MD at [facility] ??? PRO SIGMOIDOSCOPY, DIAGNOSTIC N/A 07/23/2017 FLEXIBLE SIGMOIDOSCOPY performed by Aldo Limon MD at [facility] ??? PRO SIGMOIDOSCOPY, DIAGNOSTIC N/A 11/27/2018 FLEXIBLE SIGMOIDOSCOPY performed by June Tamayo MD at [facility] ??? PRO SIGMOIDOSCOPY, REMV LESN, SNARE 07/23/2017 FLEXIBLE SIGMOIDOSCOPY; W REM TUMOR/POLYP/LESION BY SNARE performed by Aldo Limon MD at [facility] ??? TONSILLECTOMY AND ADENOIDECTOMY ??? TUBAL LIGATION With subsequent reversal Social History Tobacco Use ??? Smoking status: Never Smoker ??? Smokeless tobacco: Never Used Substance Use Topics ??? Alcohol use: Yes Alcohol/week: 1.0 standard drinks Types: 1 Glasses of wine per week Comment: occasionally 1-2 x monthly Social History Substance and Sexual Activity Drug Use No Allergies Allergen Reactions ??? Preparation H [Phenyleph-Shark Hpn-[id number]] Rash ??? Fairplay Butter CIS - Rash, CIS - Rash, [...] Rash, CIS - Rash, CIS - Rash Medications: MAR and/or home medications have been reviewed. Physical Exam: Most Recent Vitals: 05/18/19 0850 BP: 154/73 Pulse: 58 Resp: 18 Temp: 36.4 ??C (97.6 ??F) SpO2: 100% Body mass index is 25.34 kg/m??. Height: 167.6 cm (5' 6) Weight: 71.2 kg (157 lb) Airway Assessment: Mallampati: I TM distance: >3 FB Neck ROM: full Cardiovascular Assessment: Pulmonary Assessment: breath sounds clear to auscultation Dental Assessment: - normal exam Misc Assessment: Anesthesia Plan: ASA 2 MAC, with a(n) intravenous induction Anesthesia - R/B/As discussed. QSA. H/O large polyp now scheduled for followup colonoscopy. Quite healthy and active - minimal carotid atherosclerosis, distant h/o palpitations. Plan MAC with propofol. Region - Other Informed Consent: Anesthetic plan and risks discussed with patient. Plan discussed with JUNIOR WEB DESIGNER. PAT Clinic Note documented in this encounter Plan of Treatment Not on filedocumented as of this encounter Visit Diagnoses Not on filedocumented in this encounter Administered Medications Inactive Administered Medications - up to 3 most recent administrations Medication Order MAR Action Action Date Dose Rate Site lactated ringers infusion New Bag 05/18/2019 9:34 AM EDT CONTINUOUS PRN, Starting on Fri05/18/19 at 0934, Until Fri05/18/19 at 1010, Anesthesia Intra-op propofol (DIPRIVAN) 10 mg/mL bolus injection Given 9 9:40 AM EDT 50 mg (Anesthesia) PRN, Starting on Fri05/18/19 at 0940, Until 05/18/19 at 1010, Anesthesia Intra-op propofol (DIPRIVAN) infusion New Bag 05/18/2019 9:40 AM 200 mcg/kg/min 85.4 mL/hr CONTINUOUS PRN, Starting on EDT e 05/18/19 at 0940, Until Fri05/18/19 at 1010, Anesthesia Intra-op, Routine documented in this encounter Care Teams Packaging Line Operator Relationship Specialty Start Date End Date Anita Lea APRN PCP - General Family Medicine 05/14/19 10/11/[address] [place] [address] documented as of this encounter
--- OUTSIDE RECORDS SUMMARY | 2022-07-26 00:34 | XMS_ITS | Encounter Summary ---
:1955 Author Organization [facility] [address] Care Team Providers Name Role Phone Anita Lea WALESKA Primary Care Provider Encounter Details Date Type Department Care Team Description 04/09/2021 Telephone Gastro[place]ology [place] [facility] [place] [address] Social History Tobacco Use Types Packs/Day [...] this encounter Miscellaneous Notes Telephone Encounter - Mar Whipple - 04/09/2021 8:31 AM EDT Sophia Banegas [id number] Diagnosis/Indication: 2 yr surv from 05/18/19 1. Have you ever had a/an Colonoscopy before? Yes: Date 05/18/2020 If yes, did you have any problems with the procedure? No What type of sedation was used: General Anesthesia 2. Do you take any blood thinners or have you been diagnosed with a bleeding disorder that increasesyour risk of bleeding with procedures? No 3. Do you have a Pacemaker or Defibrillator device? No 4. Are you a diabetic? No 5. Do you have any Allergies to Eggs, Latex or Medications? Yes: E-DH 6. Do you take any Oral Iron Supplements (Including multi-vitamins)? Yes (Multivitamin) 7. Do you have a history of three or more abdominal surgeries? No 8. Have you had a problem with sedation or anesthesia? No 9. Do you use a c-pap machine or oxygen tank? Neither 10. Do you take prescription narcotic pain medications, including suboxone or methodone? No 11. Do you have a preference regarding the gender of your provider? Yes: Male Miguel 12. Is there any other information you would like to us to note for the provider and nursing team who will perform your case? Yes: 03/31/21 had blood in her stool. [facility] found no blood in stool. Next day again blood in toilet. 13. Say to patient: You must have a responsible democrat who will drive you to your procedure, stay on campus for the entire duration of your procedure, and drive you home from your procedure? *Please Verify the height and weight, and adjust if height and/or weight have changed* Estimated body mass index is 26.47 kg/m?? as calculated from the following: Height as of 05/18/19: 167.6 cm (5' 6). Weight as of 10/29/19: 74.4 kg (164 lb). *Delete if not needed* Height: 5'6 Weight: 158 BMI: 25.5 Age:65 y.o. documented in this encounter Plan of Treatment Not on filedocumented as of this encounter Visit Diagnoses Not on filedocumented in this encounter Care Teams Licensed Practical Nurse Clinic Nurse Relationship Specialty Start Date End Date Anita Lea APRN PCP - General Family Medicine 05/14/19 10/11/[address] [place] [address] documented as of this encounter
--- OUTSIDE RECORDS SUMMARY | 2022-07-26 00:34 | XMS_ITS | Encounter Summary ---
:1955 Author Organization [facility] [place] [address] Care Team Providers Name Role Phone Anita Lea APRN Primary Care Provider Encounter Details Date Type Department Care Team Description 04/09/2021 Telephone [place] [facility] [place] [address] Social History Tobacco Use Types Packs/Day [...] Telephone Encounter - Mar Whipple - 04/09/2021 8:48 AM EDT Inbound/Outbound: IN Spoke to Patient/Left Message: Spoke with Patient Notes: Patient is now scheduled for the recommended time per OUR Doc, but she thinks a new referral should be in for one SOONER. Return calls can be handled by: ANY procedure inbound customer service agent documented in this encounter Plan of Treatment Not on filedocumented as of this encounter Visit Diagnoses Not on filedocumented in this encounter Care Teams Airplane Gas Tank Liner Assembler Relationship Specialty Start Date End Date Anita Lea APRN PCP - General Family Medicine 05/14/19 10/11/[address] [place] [address] documented as of this encounter
--- OUTSIDE RECORDS SUMMARY | 2022-07-26 00:34 | XMS_ITS | Encounter Summary ---
:1955 Author Organization [facility] [place] [address] Care Team Providers Name Role Phone Anita Lea APRN Primary Care Provider Encounter Details Date Type Department Care Team Description 10/29/2019 Orders Only Radiology at [facility] Eron Barrett MD [place] [address] [place] [id number] [phone] (Wo rk) Social History Tobacco Use Types [...] on filedocumented in this encounter Care Teams Hearing Aid Dispenser Relationship Specialty Start Date End Date Anita Lea APRN PCP - General Family Medicine 05/14/19 10/11/[address] [place] [address] documented as of this encounter
--- OUTSIDE RECORDS SUMMARY | 2022-07-26 00:34 | XMS_ITS | Encounter Summary ---
:1955 Author Organization [facility] [place] [address] Care Team Providers Name Role Phone Danielle Burgess MD Primary Care Provider Reason for Referral Diagnostic Test (Routine) - Closed Specialty Diagnoses / Procedures Referred By Contact Refer red To Contact Radiology Diagnoses Radiculopathy of cervical region Eleazar Genao MD [facility] Rad Mri Procedures MRI Cervical Spine wo Contrast (Generic) [facility] [place] [address] [place] [address] Referral ID Status Reason Start Date Expiration Date Visits V isits Requested Authorized [id number] Closed Specialty 10/12/2021 04/11/2023 1 1 Service Requested Reason for Visit Diagnostic Test (Routine) - Closed Specialty Diagnoses / Procedures Referred By Contact Refer red To Contact Radiology Diagnoses Radiculopathy of cervical region Eleazar Genao MD [facility] Rad Mri Procedures MRI Cervical Spine wo Contrast (Generic) [place] [address] [place] [address] Referral ID Status Reason Start Date Expiration Date Visits V isits Requested Authorized [id number] Closed Specialty 10/12/2021 04/11/2023 1 1 Service Requested Encounter Details Date Type Department Care Team Description 10/20/2021 Hospital Encounter MRI at [facility] Birgit, Radiculopathy of [facility] Eleazar Alarcon MD cervical region Drive [facility] [address] NEUROLOGY [phone] [place] [address] Social History Tobacco Use Types Packs/Day Years [...] Name Priority Date/Time Associated Diagnosis Comme nts MRI CERVICAL SPINE Routine 10/20/2021 2:16 PM Radiculopathy of Results for this WO CONTRAST EST cervical region procedure ar e in the results section. documented in this encounter Results MRI Cervical Spine wo [...] who have questions please contact the health school child care attendant that requested your imaging first. ? Electronically signed by: Delia Reynoso MD , [facility] ([phone]), at 10/20/2021 8:31 PM Narrative 10/20/2021 8:31 PM EST EXAMINATION: MRI [...] ho have questions please contact the health school child care attendant that requested your imaging first. Electronically signed by: Delia Reynoso MD , [facility] ([phone]), at 10/20/2021 8:31 PM Eleazar Genao MD IMG MRI ORDERABLES documented in this encounter Visit Diagnoses Diagnosis Radiculopathy of cervical region Brachial neuritis or radiculitis nos documented in this encounter Care Teams Administrator Health Care Facility Relationship Specialty Start Date End Date Danielle Burgess MD PCP - General Family Medicine 10/12/[address] [place] [address] documented as of this encounter
--- OUTSIDE RECORDS SUMMARY | 2022-07-26 00:34 | XMS_ITS | Encounter Summary ---
:1955 Author Organization [facility] [place] [address] Care Team Providers Name Role Phone JesemichelleClaudia APRN Primary Care Provider Reason for Visit Reason Onset Date Comments Follow-up 09/02/2017 Encounter Details Date Type Department Care Team Description 09/02/2017 Telephone Ophthalmology at [facility] Melecio Noonan MD Follow-up [facility] [place] [address] OPHTHALMOLOGY DEPT [phone] [place], [place] [address] (Wo rk) Social History Tobacco [...] this encounter Miscellaneous Notes Telephone Encounter - Breanna Reed - 09/02/2017 12:45 PM EST Patient scheduled Telephone Encounter - Roxane Aburto - 09/02/2017 12:35 PM EST I have called and left a message for patient to call and schedule an appointment. Follow up next available any [facility] cataract MD for formal cat eval. documented in this encounter Plan of Treatment Not on filedocumented as of this encounter Visit Diagnoses Not on filedocumented in this encounter Care Teams National Stormwater Leader Relationship Specialty Start Date End Date Claudia Perez APRN PCP - General 05/05/15 05/13/19 documented as of this encounter
--- OUTSIDE RECORDS SUMMARY | 2022-07-26 00:34 | XMS_ITS | Encounter Summary ---
:1955 Author Organization [facility] [place] [address] Care Team Providers Name Role Phone Ainta Lea APRN Primary Care Provider Encounter Details Date Type Department Care Team Description 05/15/2020 Ancillary Procedure Radiology Library at [facility] [id number] [phone] Social History Tobacco Use Types Packs/Day Years [...] Associated Diagnosis Comme nts FILM LIBRARY Routine 05/15/2020 12:00 AM Results for this STORAGE ONLY DX EDT procedure ar e in SPINE the results section. documented in this encounter Results Film Library- Storage Only DX Spine (05/15/2020 12:00 AM EDT) Specimen (Source) Anatomical Location Collection Method / Collectio n Time Received Time / Laterality Volume Narrative EFRAIN LAMBERT - 10/05/2021 3:10 PM EST This exam is auto-finalizing. It's purpo se is for storage only. Anita Lea APRN IMG FILM LIBRARY ORDERABLES Performing Organization Address City/State/ZIP Code Phon e Number [place], [place] documented in this encounter Visit Diagnoses Not on filedocumented in this encounter Care Teams Chlorine Plant Operator Relationship Specialty Start Date End Date Anita Lea APRN PCP - General Family Medicine 05/14/19 10/11/[address] [place] [address] documented as of this encounter
--- OUTSIDE RECORDS SUMMARY | 2022-07-26 00:34 | XMS_ITS | Encounter Summary ---
:1955 Author Organization [facility] [place] [address] Care Team Providers Name Role Phone Anita Lea SNOW REMOVAL/PLOWING Primary Care Provider Encounter Details Date Type Department Care Team Description 05/03/2021 Telephone Gastroenterology at [facility] [place] [address] Social History Tobacco Use Types Packs/Day [...] this encounter Miscellaneous Notes Telephone Encounter - Herrera Arciniega - 05/03/2021 2:55 PM EDT I spoke to Lilliana regarding her lodging arrangements for her upcoming endoscopic procedure on 05/08/2021. We discussed the possibility of staying at [facility]. Sharmila Arciniega Patient Experience Navigator Section of Gastroenterology and Hepatology documented in this encounter Plan of Treatment Not on filedocumented as of this encounter Visit Diagnoses Not on filedocumented in this encounter Care Teams Software Tools Developer Relationship Specialty Start Date End Date Anita Lea APRN PCP - General Family Medicine 05/14/19 10/11/21 [address] [place] [address] documented as of this encounter
--- OUTSIDE RECORDS SUMMARY | 2022-07-26 00:34 | XMS_ITS | Encounter Summary ---
:1955 Author Organization [facility] [address] Care Team Providers Name Role Phone Anita Lea APRN Primary Care Provider Encounter Details Date Type Department Care Team Description 05/08/2021 Hospital Encounter Gastroenterology at [facility] Wade Rivera, [facility] [place] [address] [facility] [phone] [facility] [place], [place] [address] Social History Tobacco Use Types [...] occurs, please contact your Doctor. Please call [phone] before 8pm Mon-Fri with problems, questions or concerns. If you call after 8pm or on weekends, call the Hospital at [phone] and ask to speak to the Restaurant Recruiter semiconductor packages tester and the compressor operator adjuster will contact that person for you. When should you call for help? Call 489 anytime you think you may need emergency [...] any problems. Where can you learn more? [facility] View your After Visit Summary and more online at [email or web address] If you would like to provide [...] cost to you. Content Version: 12.2 ?? [id number] [employer]. Care instructions adapted under license by [email or web address]. If you have questions about a medical condition or this instruction, always ask your healthcare professional. [employer] disclaims any warranty or liability for your [...] Rivera MD - 05/08/2021 10:17 AM EDT [facility] Operative Note Patient Name: Sophia Banegas : [id number] MR#: [id number] Case Date: 05/08/2021 Surgeon: Surgeon(s) and Role: [...] Component Value Ref Test Analysis Performed At [facility] Method Time Signature COLONOSCOPY [facility] PROVATION Endoscopy Procedure Date: 05/08/2021 9:38 AM ? Patient Name: Sophia Banegas ? Date of : 1955 ? Age: 65 ? Order #: [id number] ? Instrument Name: [id number] ? Procedure: ? Colonoscopy Indications: ? High [...] was evaluat ed using ? the BBPS ([place] Bowel Prepar ation ? Scale) with scores [...] Laterality 05/08/2021 9:38 AM EDT Anita Adjovu [employer] SYSTEMS ROBOTICIST GENERAL SURGICAL ORDERABLES Performing Organization Address City/State/ZIP [...] Procedure) documented in this encounter Care Teams College Athlete Relationship Specialty Start Date End Date Anita Lea APRN PCP - General Family Medicine 05/14/19 10/11/[address] [place] [address] documented as of this encounter
--- OUTSIDE RECORDS SUMMARY | 2022-07-26 00:34 | XMS_ITS | Encounter Summary ---
:1955 Author Organization [facility] [place] [address] Care Team Providers Name Role Phone Anita Lea APRN Primary Care Provider Encounter Details Date Type Department Care Team Description 05/08/2021 Anesthesia Event Gastroenterology at [facility] Angelo Zhu, [facility] [place] [address] [facility] [phone] DR ANESTHESIOLOGY [place], [place] [address] Anesthesia Record Procedure Summary Procedure Name Responsible Anesthesia Start Anesthesia Stop Anesthesiologist Time Time COLONOSCOPY, Angelo Zhu MD 05/08/21 0955 05/08/21 1 037 DIAGNOSTIC (N/A Trunk) Events Date Time Event Comment 05/08/2021 0947 0955 AN Verify 0955 Start 0955 An Start Data 0959 Anesthesia Ready 1017 Procedure Start 1037 an stop data 1037 Recovery or ICU Handoff Patient care was transferred to the destination unit staff after review of the patient's medica l history, current anesthetic/surgi hector status and plan, according to the Provider Handoff Checklist. 1037 Stop Name Total IV Lidocaine 60 mg Propofol 50 mg Propofol INF 372.59 mg Lactated Ringers 300 mL Agents Name O2 Air N2O O2 Auxiliary Flowmeter 1 Blood No blood administrations on file. Lines, Drains, and Airways Type Details Placement Removal PIV 05/08/21; 0945; median 05/08/21 0945 by Azael Bangura 05/08/21 1105 by gretchen (underside of arm)Karol RN Alexand er, Ann M, RN right; 22 gauge; C Neal; distraction; 05/08/21; 1105 documented in this encounter Social History Tobacco [...] encounter OR Notes Anesthesia Postprocedure Evaluation - Angelo Zhu MD - 05/09/2021 3:56 PM EDT Department of Anesthesiology Post-procedure Note Patient: Sophia Banegas Procedure Summary Date: 05/08/21 Room / Location: [facility] ENDO 2 / [facility] ENDOSCOPY Anesthesia Start: 954 Anesthesia Stop: 1037 Procedure: COLONOSCOPY, DIAGNOSTIC (N/A Trunk) Diagnosis: (2 yr surv from 05/18/19) (Sooner because of:) (Personal hx polyps) (Rectal Bleeding) Surgeons: Wade Rivera MD Responsible Provider: Angelo Zhu MD Anesthesia Type: MAC ASA Status: 2 All Anesthesia Providers: Anesthesiologist: Angelo Zhu MD POLICE DETENTION ATTENDANT: Pete Baldwin CRNA Vitals Value Taken Time BP 147/82 05/08/21 1100 Temp Pulse Resp 18 05/08/21 1050 SpO2 99 % 05/08/21 1102 Pain Level 0 05/08/21 1050 Vitals shown include unvalidated device data. Patient Location: PACU/[facility] Level of Consciousness: Awake and Alert Pain Management: Satisfactory Analgesia PONV: None Cardiovascular Status: At Baseline and Hemodynamically Stable Respiratory Status: At Baseline and Room Air Postoperative Fluid Status: Intravascular EUvolemia Possible Anesthetic Complications: NONE apparent at time of evaluation Final Primary Anesthesia Type: MAC (The anesthetic type performed was the same as planned.) Comments: Angelo Zhu MD Anesthesia Preprocedure Evaluation - Angelo Zhu MD - 05/08/2021 7:06 AM EDT Pre-Anesthesia Evaluation for: Sophia Banegas a 65 y.o. female. Procedure(s): COLONOSCOPY, DIAGNOSTIC Patient Active Problem List Diagnosis ??? History of palpitations ??? Asymptomatic bilateral carotid artery stenosis Past Medical History: Diagnosis Date ??? Arthritis ??? Cardiac disease ??? Tick bites Past Surgical History: Procedure Laterality Date ??? BREAST BIOPSY Right 2005 b9 ??? PRO COLONOSCOPY, BIOPSY N/A 11/07/2017 COLONOSCOPY FLEXIBLE, WITH BX (WRVU 3.66) performed by Aldo Limon MD at [facility] ENDOSCOPY ??? PRO COLONOSCOPY, DIAGNOSTIC N/A 07/13/2015 COLONOSCOPY, DIAGNOSTIC performed by Anais Renner MD at [facility] ENDOSCOPY ??? PRO COLONOSCOPY, DIAGNOSTIC N/A 05/18/2019 COLONOSCOPY, DIAGNOSTIC performed by Wade Rivera MD at [facility] ENDOSCOPY ??? PRO COLONOSCOPY, REMV LESN, SNARE 12/23/2011 COLONOSCOPY, POLYPECTOMY, REMOVAL LESION BY SNARE performed by LENNOX TO at [facility] ENDOSCOPY ??? PRO COLONOSCOPY, REMV LESN, SNARE N/A 07/13/2015 COLONOSCOPY, POLYPECTOMY, REMOVAL LESION BY SNARE performed by Anais Renner MD at [facility] END[facility] ??? PRO SIGMOIDOSCOPY, BIOPSY 12/23/2012 SIGMOIDOSCOPY, FLEXIBLE; WITH BIOPSY, SINGLE OR MULTIPLE performed by Lennox To MD at [facility] ??? PRO SIGMOIDOSCOPY, DIAGNOSTIC 12/23/2012 FLEXIBLE SIGMOIDOSCOPY performed by Lennox To MD at [facility] END[facility]COPY ??? PRO SIGMOIDOSCOPY, DIAGNOSTIC 07/06/2013 FLEXIBLE SIGMOIDOSCOPY performed by Lennox To MD at [facility] ??? PRO SIGMOIDOSCOPY, DIAGNOSTIC 07/12/2014 FLEXIBLE SIGMOIDOSCOPY performed by Lennox To MD at [facility] ??? PRO SIGMOIDOSCOPY, DIAGNOSTIC N/A 07/15/2016 FLEXIBLE SIGMOIDOSCOPY performed by Lennox To MD at [facility] ??? PRO SIGMOIDOSCOPY, DIAGNOSTIC N/A 07/23/2017 FLEXIBLE SIGMOIDOSCOPY performed by Aldo Limon MD at [facility]COPY ??? PRO SIGMOIDOSCOPY, DIAGNOSTIC N/A 11/27/2018 FLEXIBLE SIGMOIDOSCOPY performed by June Tamayo MD at [facility] ??? PRO SIGMOIDOSCOPY, REMV LESN, SNARE 07/23/2017 FLEXIBLE SIGMOIDOSCOPY; W REM TUMOR/POLYP/LESION BY SNARE performed by Aldo Limon MD at [facility] ??? TONSILLECTOMY AND ADENOIDECTOMY ??? TUBAL LIGATION With subsequent reversal Social History Tobacco Use ??? Smoking status: Never Smoker ??? Smokeless tobacco: Never Used Substance Use Topics ??? Alcohol use: Yes Alcohol/week: 1.0 standard drink Types: 1 Glasses of wine per week Comment: occasionally 1-2 x monthly Social History Substance and Sexual Activity Drug Use No Allergies Allergen Reactions ??? Preparation H [Phenyleph-Shark Lmu-Ayse-Oic] Rash ??? Novi Butter CIS - Rash, CIS - Rash, [...] home medications have been reviewed. Physical Exam: Preprocedure Vitals Current as of 05/08/21 0706 No BP, pulse, respiration, SpO2, or temperature recorded. Height: Weight: BMI: IBW: Airway Assessment: Mallampati: I TM distance: >3 FB Neck ROM: full Cardiovascular Assessment: Rhythm: regular Pulmonary Assessment: breath sounds clear to auscultation Dental Assessment: - normal exam Misc Assessment: Patient is wearing No contact(s). IV access: Peripheral line Last Filed Perioperative Cognitive Screening None Anesthesia Plan: ASA 2 MAC, with a(n) intravenous induction Anesthesia - R/B/As discussed. QSA. H/O large polyp now scheduled for followup colonoscopy. Quite healthy and active - minimal carotid atherosclerosis, distant h/o palpitations. Plan MAC with propofol. Region - Other Informed Consent: Anesthetic plan and risks discussed with patient. Plan discussed with POLICE DETENTION ATTENDANT. Anesthesia Screening documented in this encounter Plan of Treatment Not on filedocumented as of this encounter Visit Diagnoses Not on filedocumented in this encounter Administered Medications Inactive Administered Medications - up to 3 most recent administrations Medication Order MAR Action Action Date Dose Rate Site lactated ringers infusion New Bag 05/08/2021 9:55 AM EDT Intravenous, CONTINUOUS PRN, Starting on Fri05/08/21 at 0955, Until Fri05/08/21 at 1037, Anesthesia Intra-op lidocaine (pf) (Xylocaine) (20 mg/mL) 2% Given 05/08/2021 10:00 AM EDT 60 mg injection syringe Intravenous, PRN, Starting on Fri05/08/21 at 1000, Until 05/08/21 at 1037, Anesthesia Intra-op, Routine propofoL (Diprivan) 10 mg/mL bolus injection Given 06/2021 10:00 AM EDT 50 mg (Anesthesia) Intravenous, PRN, Starting on Fri05/08/21 at 1000, Until Fri05/08/21 at 1037, Anesthesia Intra-op propofoL (Diprivan) infusion Rate/Dose 05/08/2021 100 mcg/kg/min 42.18 Intravenous, CONTINUOUS PRN, Change 10:30 AM EDT mL/hr Starting on Fri05/08/21 at 1000, Until Fri05/08/21 at 1037, Anesthesia Intra-op, Routine Rate/Dose Change 05/08/2021 10:20 AM EDT 200 mcg/kg/min 84.36 mL/hr New Bag 05/08/2021 10:00 AM EDT 150 mcg/kg/min 63.27 mL/hr documented in this encounter Care Teams Manager Support Relationship Specialty Start Date End Date Anita Lea APRN PCP - General Family Medicine 05/14/19 10/11/21 [facility] [address] [place] [address] documented as of this encounter
--- OUTSIDE RECORDS SUMMARY | 2022-07-26 00:34 | XMS_ITS | Encounter Summary ---
:1955 Author Organization [facility] [place] [address] Care Team Providers Name Role Phone Anita Lea APRN Primary Care Provider Reason for Referral Diagnostic Test (Routine) - Closed Specialty Diagnoses / Procedures Referred By Contact Refer red To Contact Radiology Diagnoses Encounter for screening mammogram for breast cancer Anita Lea APRN [facility] Rad Mammography Procedures Mammo Screening Cad and Jakob Bilateral [address] [place], [place] [address] [place] [address] Phone: Referral ID Status Reason Start Date Expiration Date Visits V isits Requested Authorized [id number] Closed Specialty 04/24/2021 10/25/2022 1 1 Service Requested Reason for Visit Diagnostic Test (Routine) - Closed Specialty Diagnoses / Procedures Referred By Contact Refer red To Contact Radiology Diagnoses Encounter for screening mammogram for breast cancer Ainta Lea APRN [facility] Rad Mammography Procedures Mammo Screening Cad and Jakob Bilateral [address] [place], [place] [address] [place] [address] Phone: Referral ID Status Reason Start Date Expiration Date Visits V isits Requested Authorized [id number] Closed Specialty 04/24/2021 10/25/2022 1 1 Service Requested Encounter Details Date Type Department Care Team Description 06/07/2021 Hospital Encounter Mammography/DXA at Anita Lea , Encounter for [facility] SENIOR TREASURY ANALYST screening mammogram [address] [address] [phone] Social History Tobacco Use Types Packs/Day Years [...] Diagnosis Comme nts MAMMO SCREENING CAD Routine 06/07/2021 8:35 AM Encounter for R esults for this AND JAKOB BILATERAL EDT screening mammogram pr ocedure are in for breast cancer the result s section. documented in this encounter Results Mammo Screening Cad and Jakob Bilateral (06/07/2021 8:35 AM EDT) Anatomical Region Laterality Modality Breast Bilateral Mammography Specimen (Source) Anatomical Location Collection Method / Collectio n Time Received Time / Laterality Volume Narrative 06/07/2021 8:57 AM EDT BILATERAL MAMMOGRAPHY REASON FOR EXAM: [...] BIRADS CATEGORY 1: NEGATIVE Electronically signed by: SOPHIA WILLIS MD Anita Lea APRN IMG MAMMO ORDERABLES documented in this encounter Visit Diagnoses Diagnosis Encounter for screening mammogram for br east cancer documented in this encounter Care Teams Interactive Digital Media Specialist Relationship Specialty Start Date End Date Anita Lea APRN PCP - General Family Medicine 05/14/19 10/11/[address] [place] [address] documented as of this encounter
--- OUTSIDE RECORDS SUMMARY | 2022-07-26 00:34 | XMS_ITS | Encounter Summary ---
:1955 Author Organization [place] [address] Care Team Providers Name Role Phone Anita Lea WALESKA Primary Care Provider Encounter Details Date Type Department Care Team Description 11/06/2019 Telephone Obstetrics and Gynecology at Herb Bell MD [facility] OBSTETRICS & [place] [address] [place] [address] [phone] (Wo rk) Social History Tobacco Use Types [...] this encounter Miscellaneous Notes Telephone Encounter - Herb Fernandez MD - 11/06/2019 7:54 AM EST Called Lilliana to review the results of her CTA. Explained that there were no obvious pelvic masses or GI obstructions noted. She reported that her symptoms have continued and she can now pinpoint her pain to the left lower quadrant. Discussed that her abdominal bloating and pain are likely unrelated to a FINANCIAL SYSTEMS ANALYST issue and so would recommend referral to GI. Patient is already well-known to [facility] gastroenterology, having had multiple colonoscopies over the last few years. Lilliana is going to call and ask for the next available appointment.Plan to send clinic notes and scan report to whichever provider she ends up seeing. Herb Fernandez MD 11/05/2019 documented in this encounter Plan of Treatment Not on filedocumented as of this encounter Visit Diagnoses Not on filedocumented in this encounter Care Teams Glass Belt Sander Relationship Specialty Start Date End Date Anita Lea APRN PCP - General Family Medicine 05/14/19 10/11/[address] [place] [address] documented as of this encounter
--- OUTSIDE RECORDS SUMMARY | 2022-07-26 00:34 | XMS_ITS | Encounter Summary ---
:1955 Author Organization [facility] [place] [address] Care Team Providers Name Role Phone Anita Lea WALESKA Primary Care Provider Reason for Referral Diagnostic Test (Routine) - Closed Specialty Diagnoses / Procedures Referred By Contact Refer red To Contact Radiology Diagnoses Lower abdominal pain Herb Fernandez MD [facility] Rad Ct Scan Procedures CT Abdomen & Pelvis w Contrast CT Abdomen & Pelvis wwo Contrast (Generic) [facility] OBSTETRICS [facility] [place] [address] [place] [address] Referral ID Status Reason Start Date Expiration Date Visits V isits Requested Authorized [id number] Closed Specialty 10/29/2019 04/28/2021 1 1 Service Requested Reason for Visit Consultation (Routine) - Specialty Diagnoses / Procedures Referred By Contact Refer red To Contact Gynecology Oncology Diagnoses Abnormal findings on diagnostic imaging of other specified body structures Pelvic and perineal pain Abdominal distension (gaseous) Karla Ravi, [facility] 3k COMMERCIAL DRIVER [facility] [address] [phone] Fax: Referral ID Status Reason Start Date Expiration Date Visits V isits Requested Authorized [id number] Consult, Test 10/29/2019 04/28/2020 6 6 & Treat PCP Updated and/or Approved Encounter Details Date Type Department Care Team Description 10/29/2019 Office Visit Obstetrics and Herb Fernandez M D Lower abdominal pain Gynecology at [facility] [address] [place] [address] GYNECOLOGY [phone] [place], [place] [address] Social History Tobacco Use Types [...] Sign Reading Time Taken Comments Blood Pressure 151/69 10/29/2019 1:18 PM EST Pulse 73 10/29/2019 1:18 PM EST Temperature 36.4 ??C (97.6 ??F) 10/29/2019 1:18 PM EST Respiratory Rate - - Oxygen Saturation 100% 10/29/2019 1:18 PM EST Inhaled Oxygen Concentration - - Weight 74.4 kg (164 lb) 10/29/2019 1:18 PM EST Height - - Body Mass Index 26.47 05/18/2019 8:50 AM EDT documented in this encounter Progress Notes Herb Fernandez MD - 10/29/2019 1:30 PM EST Acute Muck Hauler Visit ID: Sophia Banegas is a 64 y.o. postmenopausal female who presents for further evaluation and management of a endometrial calcification seen on TVUS in the setting of new onset abdominal swelling and early satiety. S: Lilliana was seen by her PCP on 10/19/2019 for a 3 week hx of fatigue, lower abdominal bloating with associated pelvic discomfort and early satiety. She has gone from sleeping 6 hours a day to sleeping soundly for half of the day. Her pants are feeling tighter and she quickly becomes full after eating only a few bites. She denies emesis but has started to notice more nausea. She continues to have regular bowel movements and denies any urinary symptoms. She denies any vaginal bleeding, chest pain, shortness of breath, headache, or abnormal bleeding/brusing. OBGYN hx: . x2. Denies hx of cervical dysplasia, last pap at age 62 NILM/HPV neg per patient. Had a BTL and then had it reversed. PMH notable for the following: - Diverticulosis - Tubular adenoma of colon: required multiple colonoscopies with the most recent being in April 2019 Fam Hx: - maternal grandmother with ovarian cancer Social Hx: - Never smoker - Occasional ETOH O: Most Recent Vitals: 10/29/19 1318 BP: 151/69 Pulse: 73 Temp: 36.4 ??C (97.6 ??F) SpO2: 100% Physical Exam GEN: well appearing female seated in no acute distress CARD: normal rate and regular rhythm, no murmurs or rubs PULM: clear to auscultation bilaterally, no labored breathing ABD: soft, non-distended, + bowel sounds, mildly tender to palpation in bilateral lower quadrants, no rebound, no guarding PELVIC: normal appearing external genitalia, urethral meatus wnl, atrophic appearing vaginal epithelium, normal discharge, normal appearing cervix without lesions. On bimanual exam, anteverted, mobile uterus without masses, no adnexal tenderness or fullness, no CMT. EXT: nontender bilaterally, no edema or evidence of skin breakdown TVUS on 10/19/19: multiple calcifications seen in fundal portion of the endometrium which could be associated with a small mass, EMS 1-2 mm A/P: Sophia Banegas is a 64 y.o. postmenopausal female with abdominal bloating and early satiety concerning for an obstructive intra-abdominal process. Incidentally found endometrial calcifications on transvaginal ultrasound. Discussed findings of her ultrasound and explained to Lilliana that they are unlikely to be contributingto her recent symptoms. Given that she has had no vaginal bleeding and her endometrial stripe is otherwise within normal limits for postmenopausal female. We will hold off on endometrial biopsy at thistime. Given her obstructive symptoms, would recommend CT abdomen pelvis with p.o. contrast to evaluate forpelvic mass. Unable to appreciate mass on physical exam. We will contact Lilliana with the results of her imaging study and develop a plan based on those results. Patient discussed with Dr. Simon, WAISTBAND SETTER LOCKSTITCH attending. Herb Fernandez MD 10/29/2019 Yojana Simon MD - 10/29/2019 1:30 PM EST This patient's case was discussed at the time of the visit or immediately after the visit. The assessment and plan were formulated in discussion with me and I agree with them as documented. I have reviewed the history, physical exam, assessment and plan with the resident. Yojana Simon MD documented in this encounter Plan of Treatment Not on filedocumented as of this encounter Results CT Abdomen & Pelvis [...] report, please contact e number below. ? Narrative 10/31/2019 3:39 PM EST EXAMINATION: CT [...] this report, please contact e number below. Yojana Simon MD IMG CT ORDERABLES documented in this encounter Visit Diagnoses Diagnosis Lower abdominal pain Abdominal pain, other specified site Lower abdominal pain Abdominal pain, other specified site documented in this encounter Care Teams Marine Plumber Relationship Specialty Start Date End Date Anita Lea APRN PCP - General Family Medicine 05/14/19 10/11/[address] [place] [address] documented as of this encounter
--- OUTSIDE RECORDS SUMMARY | 2022-07-26 00:35 | XMS_ITS | Encounter Summary ---
:1955 Author Organization [facility] Address [place] [address] Care Team Providers Name Role Phone Jesemichelle Claudia Benjamin APRN Primary Care Provider Reason for Visit Auth/Cert - Closed Specialty Diagnoses / Procedures Referred By Contact Refer red To Contact Diagnoses 1 yr surv from 07/12 Procedures PRO COLONOSCOPY, DIAGNOSTIC COLONOSCOPY, DIAGNOSTIC Referral ID Status Reason Start Date Expiration Date Visits Requ ested Visits Authorized [id number] Closed 1 1 Encounter Details Date Type Department Care Team Description 07/13/2015 Hospital Encounter [facility]ology at [facility] Dakotah Clark MD [facility] [place] [address] [facility] Kwabena Taveras MD [facility] [place] [address] [place] [address] Anais Renner MD [facility] [place] [address] [phone] Social History Tobacco Use Types Packs/Day Years [...] Sign Reading Time Taken Comments Blood Pressure 136/80 07/13/2015 2:21 PM EDT Pulse 74 07/13/2015 2:21 PM EDT Temperature - - Respiratory Rate 17 07/13/2015 2:21 PM EDT Oxygen Saturation 98% 07/13/2015 2:21 PM EDT Inhaled Oxygen Concentration - - Weight - - Height - - Body Mass Index - - documented in this encounter Discharge Instructions Discharge InstructionsJovani Yo RN - 07/13/2015 2:40 PM EDT You may have received medication before and/or during your procedure, which affects judgement and reaction time. Do not drive, operate machinery, drink alcoholic beverages, or make important decisions for 24 hours. Be careful on stairs, as you may be unsteady on your feet. You may eat a regular diet as tolerated. Do not smoke if you are alone. IV site -- slight redness, or tenderness is normal, you can use a warm compress. If tenderness and redness increases or foul drainage occurs, please contact your M. D. AttachmentsThe following attachments cannot be sent through Care Everywhere. COLON POLYPS (LIBYAN)documented in this encounter Medications at Time of Discharge Medication Sig Dispensed Refills Start Date End Date multivitamin (THERAGRAN) tablet 0 /04/2011 Calcium Carbonate-Vitamin D3 (CALCIUM 600 0 12/04/2010 07/15/2016 WITH VITAMIN D3) 600 mg(1,500mg) -400 unit Cap documented as of this encounter H&P Notes Anais Renner MD - 07/13/2015 1:07 PM EDT Gastroenterology and Hepatology Pre-Procedure History and Physical Exam Procedure: Colonoscopy Indication: 59F with history of TVA, flex sig in 2013, rsidual tumour left. Follow up. There is no problem list on file for this patient. EXAM: HEENT: Airway examined, oropharynx clear Mallampati [...] Procedure Name Priority Date/Time Associated Comments Diagnosis SPECIMEN TO PATHOLOGY Routine 07/13/2015 2:18 PM Results for this EDT procedure are i n the results section. SURGICAL PATHOLOGY Routine 07/13/2015 2:17 PM Res ults for this REPORT EDT procedure are i n the results section. COLONOSCOPY, 07/13/2015 12:47 1 yr surv from POLYPECTOMY, REMOVAL PM EDT 07/12 LESION BY SNARE (WRVU 4.67) COLONOSCOPY, 07/13/2015 12:47 1 yr surv from DIAGNOSTIC PM EDT 07/12 COLONOSCOPY Routine 07/13/2015 12:24 Results for this PM EDT procedure are i n the results section. documented in this encounter Results Specimen to Pathology (surgical or derm) (07/13/2015 2:18 PM EDT) Specimen Anatomical Collection Method Collection Time Receive d Time (Source) Location / / Volume Laterality AP Specimen 07/13/2015 2:18 PM 5 2:18 EDT [address] [facility] - 07/13/2015 2:18 PM E DT Specimen requisition ordered. ??Separate Pathology report to follow Anais Renner MD PATHOLOGY/CYTOLOGY ORDERABLE S Performing Organization Address City/State/[place] [address] [facility] Surgical Pathology Report (07/13/2015 2:17 PM EDT) Component Value Ref Test Analysis Performed At [facility] Range Method Time Signature Surgical The signing pathologist has (i) examined the relevant preparation(s) for the [facility] Pathology specimen(s) and (ii) rendered or confirmed the diagnosis(e s). [facility] Report Accession Number: [id number] ?Location: 4 T; EA07; A . ?Surgic al Pathology DIAGNOSIS A. Colon, 20 cm, polypectomy: Tubulovillous adenoma (multiple fragments). CR-0, CR-PX 07/14/15 DNT 07/14/15 Verified by: ? Rhianna Solis MD ?Pathologist ?(Electronic Signature ) The attending pathologist whose signature appears on this re port has reviewed all diagnostic slides and has edited the gross and/ or microscopic portion of the report in marquez dering the final pathologic diagnosis. CLINICAL INFORMATION Specimen Submitted: A - Polyp at 20 cm Clinical History: Polyp at 20 cm, history of TVA Clinical Diagnosis: Same SPECIMEN PROCESSING A - Labeled/Fixative: Polyp at 20 cm, formalin. Quantity/Size: Multiple, ranging from 0.2-0.5 cm. Tissue Description: Soft, pink tissues. Sections/Processing: (T2) ??sns Specimen (Source) Anatomical Collection Method Collection Time Re ceived Time Location / / Volume Laterality 07/13/2015 2:17 PM EDT Anais Renner MD PATHOLOGY/CYTOLOGY ORDERABLE S Performing Organization Address City/State/ZIP [place] [address] [facility] COLONOSCOPY (07/13/2015 12:24 PM EDT) Component Value Ref Test Analysis Performed At [facility] Range Method Time Signature COLONOSCOPY [facility] Endoscopy Patient Name: Sophia Montes De Oca ? Procedure Date: 07/13/2015 12:24 PM ? Date of : 1955 ? Age: 59 ? Order #: [id number] ? Procedure: ? Colonoscopy Indications: ? High risk colon cancer surveillance : ? Personal history of adenoma w ith ? villous component Providers: ? Derek Cruz, ? RN, Natalee Serrato Referring MD: ?Claudia K. Gerrish Medicines: ? Midazolam 3 mg IV, Fentanyl 200 ? micrograms IV [...] informed consent was obta ined. ? - Patient identification and proposed ? procedure were verified prior to the ? procedure by the physician an d the ? nurse. The procedure was vito akbar in ? the pre-procedure area in the ? procedure room. ? - Pre-procedure physical exam ination ? revealed no contraindications to ? sedation. ? - ASA Grade Assessment: II - A ? patient with mild systemic di sease. ? - After reviewing the risks a nd ? benefits, the patient was amadou med in ? satisfactory condition to und ergo the ? procedure. ? - The anesthesia plan was to use ? moderate sedation/analgesia ? (conscious sedation). ? The procedure, indications, b enefits, ? [...] the bowel prep aration ? was excellent. ? Findings: ? The perianal examination was normal. ? A 5 to 8 mm polyp was found in the recto-sigmoid ? colon. The polyp was semi-sessile. The polyp was ? removed with a piecemeal technique using a hot snare. ? Resection was complete, and retrieval was complete. ? The exam was otherwise normal throughout the examined ? colon. ? The terminal ileum appeared normal. ? No additional abnormalities were found on ? retroflexion. ? Impression: ?- One 5 to 8 mm polyp at the ? recto-sigmoid colon. Resected and ? retrieved. ? - The examined portion of the ileum ? was normal. Recommendation: ?Repeat flexible sigmoidoscopy in 1 y r ? to assess polypectomy site ? Anais Renner Anais Renner, 07/13/2015 2:20 PM This report has been signed electronically. Number of Addenda: 0 Note Initiated On: 07/13/2015 12:24 PM Specimen (Source) Anatomical Collection Method Collection Time Re ceived Time Location / / Volume Laterality 07/13/2015 12:24 PM EDT Claudia Perez INSURANCE AGENTS SUPERVISOR GENERAL SURGICAL ORDERABLES Performing Organization Address City/State/ZIP Code Phon e Number [facility] documented in this encounter Visit Diagnoses Not on filedocumented in this encounter Administered Medications Inactive Administered Medications - up to 3 most recent administrations Medication Order MAR Action Action Date Dose Rate Site lactated ringers infusion New Bag 07/13/2015 1:00 PM EDT 100 mL/hr 100 mL/hr 100 mL/hr, Intravenous, CONTINUOUS, Starting on Sabrina 1015 at 1300, Until Sabrina 1015 at 1440, Endoscopy (Day of Procedure) documented in this encounter Active and Recently Administered Medications Times are shown in EDT. Continuous Medication Order 07/11/2015 07/12/2015 07/13/2015 lactated ringers infusion (CANCELED) 1300 (New Bag - Provider: Danielle Hansen RN) 100 mL/hr, at 100 mL/hr, Intravenous, CO NTINUOUS, Starting Sabrina 10 at 1300, Until Sabrina 1015 at 1440, Endo (Day of Procedure) PRN Medication Order 07/11/2015 07/12/2015 07/13/2015 fentaNYL 50 mcg/mL multi-dose injection (CANCELED) 1250 (Given - Provider: Derek Mathis RN - Comment: start moderate sedation)1255 (Given - Provider: Derek Mathis RN - Comment: sleepy but awake)1305 (Given - Provider: Derek Mathis RN - Comment: sleepy but awake) ONCE PRN, Starting Sabrina 10//15 at 1313, Until Sabrina 1015 at 1440, Intra- Operative (Intra-Procedure), Routine 131 3 (Given - Provider: Derek Mathis RN - Comment: ohh...that feels crampy) midazolam (PF) (VERSED) 1 mg/mL multi-dose injection (CANCELED) 1250 (Given - Provider: Derek Mathis RN - Comment: see fentayl same time)1255 (Given - Provider: Derek Mathis RN - Comment: see fentayl same time)1305 (Given - Provider: Derek Mathis RN - Comment: see fentayl same time) ONCE PRN, Starting Sabrina 10/1515 at 1250, Until Sabrina 101515 at 1440, Intra- Operative (Intra-Procedure), Routine documented in this encounter Care Teams Sales Manager [place] Relationship Specialty Start Date End Date Claudia Perez APRN PCP - General 05/05/15 05/13/19 documented as of this encounter
--- OUTSIDE RECORDS SUMMARY | 2022-07-26 00:35 | XMS_ITS | Encounter Summary ---
:1955 Author Organization [facility] [place] [address] Care Team Providers Name Role Phone Claudia Perez APRN Primary Care Provider Encounter Details Date Type Department Care Team Description 03/06/2017 Orders Only Vascular Surgery at Jovani Magaña otid disease, [facility], [place] [address] Social History Tobacco Use Types Packs/Day [...] on filedocumented as of this encounter Results Cerebrovascular Duplex, Bilateral (03/26/2017 1:49 PM EDT) Component Value Ref Test Analysis Performed At [facility] Range Method Time Signature VB Text Department: Vascular Surgery Lab [facility] Report Patient: [id number] (SOPHIA HUGHES) CPT: 80733 ICD10: I77.9 Referring Physician: JANELL LAKE M.D. ?? Phone: Indications: Prominent pulse in neck, patient can hear hea rtbeat; ? carotid stenosis ICD10 Diagnosis Code: I77.9 Findings: ICA Proximal, Right ? PSV (cm/s): 77 ? EDV (cm/s): 17 ? ICA/CCA: 1.0 ? Plaque Structure: Echogenic ? Plaque Surface: Smooth ? %Stenosis: Minimal ICA Distal, Right ? PSV (cm/s): 71 ? EDV (cm/s): 24 ? ICA/CCA: 1.0 CCA Distal, Right ? PSV (cm/s): 74 ? EDV (cm/s): 14 ? %Stenosis: Minimal CCA Proximal, Right ? PSV (cm/s): 119 ? EDV (cm/s): 21 External Carotid Artery, Right ? PSV (cm/s): 93 ? EDV (cm/s): 10 ? %Stenosis: <50% Vertebral, Right ? PSV (cm/s): 53 ? EDV (cm/s): 9 ? Direction of Flow: Antegrade ICA Proximal, Left ? PSV (cm/s): 75 ? EDV (cm/s): 16 ? ICA/CCA: 0.9 ? Plaque Structure: Echogenic ? Plaque Surface: Smooth ? %Stenosis: Minimal ICA Distal, Left ? PSV (cm/s): 82 ? EDV (cm/s): 30 ? ICA/CCA: 1.0 CCA Distal, Left ? PSV (cm/s): 81 ? EDV (cm/s): 17 ? %Stenosis: Minimal CCA Proximal, Left ? PSV (cm/s): 121 ? EDV (cm/s): 21 External Carotid Artery, Left ? PSV (cm/s): 82 ? EDV (cm/s): 6 ? %Stenosis: <50% Vertebral, Left ? PSV (cm/s): 61 ? EDV (cm/s): 16 ? Direction of Flow: Antegrade Interpretation: RIGHT: There is minimal plaque in the pr oximal internal carotid artery causing <15% stenosis when compared to the more distal internal ca rotid artery. The bifurcation level is in the mid/high neck. LEFT: There is minimal plaque in the proximal in ternal carotid artery causing <15% stenosis when compared to the more distal internal ca rotid artery. The bifurcation level is in the mid/high neck. Vertebral Artery Data: Patent vertebral arteries with normal antegrade Doppler waveforms and velocities bilaterally. Comparison: ??No previous study in our vascular lab da tabase for comparison. Electronically Signed by: AZEB YAN on 2017-03-30 01:20: 52 PM VB Text End of Report [facility] Report Specimen (Source) Anatomical Collection Method Collection Time Re ceived Time Location / / Volume Laterality 03/26/2017 1:49 PM EDT Janell Lake MD VASCULAR ORDERABLES Performing Organization Address City/State/ZIP Code Phon e Number [facility] documented in this encounter Visit Diagnoses Diagnosis Carotid disease, bilateral Unspecified disorders of arteries and ar terioles documented in this encounter Care Teams Partner Cco Relationship Specialty Start Date End Date Claudia Perez APRN PCP - General 05/05/15 05/13/19 documented as of this encounter
--- OUTSIDE RECORDS SUMMARY | 2022-07-26 00:35 | XMS_ITS | Encounter Summary ---
:1955 Author Organization [place] [address] Care Team Providers Name Role Phone Kandis Morrell MD Primary Care Provider Encounter Details Date Type Department Care Team Description 04/19/2011 Hospital Encounter Mammography at [facility], [facility] Kandis Cortes MD [address] [place] [address] [place] [address] Social History Tobacco Use Types Packs/Day Years Used Date Never Assessed Sex Assigned at Date Recorded Female 06/06/2021 6:48 PM EDT documented as of this encounter Medications at Time of Discharge Medication Sig Dispensed Refills Start Date End Date multivitamin (THERAGRAN) tablet 0 04/2011 Nfcukotcrjb-Wtaffpfky-Tfs C-Mn 0 12/0412/23/2012 (GLUCOSAMINE COMPLEX) 500-400 mg Cap Calcium Carbonate-Vitamin D3 (CALCIUM 600 0 12/04/2010 07/15/2016 WITH VITAMIN D3) 600 mg(1,500mg) -400 unit Cap documented as of this encounter Plan of Treatment Not on filedocumented as of this encounter Procedures Procedure Name Priority Date/Time Associated Diagnosis Comme nts MAMMO SCREENING CAD Routine 04/19/2011 8:45 AM Re sults for this BILATERAL EDT procedure are i n the results section. documented in this encounter Results MAMMO DIGITAL BILATERAL SCREENING WITH CAD (04/19/2011 8:45 AM EDT) Anatomical Region Laterality Modality Breast Bilateral Mammography Specimen (Source) Anatomical Collection Method Collection Time Re ceived Time Location / / Volume Laterality 04/19/2011 8:45 AM EDT Narrative 04/23/2011 11:51 AM EDT ? BILATERAL MAMMOGRAPHY ?? REASON FOR EXAM: Screening ?? TECHNIQUE: Cranio-caudal (CC) and mediol ateral oblique (MLO) views of both breasts obtained with direct digital cap ture. The exam was evaluated by CAD Version 8.3.17. ?? FINDINGS: This is a negative mammogram ( ACR Category 1). There is a stable fibroglandular pattern without significa nt change as compared to prior studies. There is no mammographic evidence of can cer. ? The breasts are of scattered density. ? CONCLUSION ?? This is a NEGATIVE mammogram (ACR Catego ry 1). Routine screening mammography is recommended with the frequency dependent on the patient's age and breast cancer risk factors. ?? A letter has been sent to this patient [facility]. Procedure Note Sophia Cannon MD - 1 BILATERAL MAMMOGRAPHY REASON FOR EXAM: Screening TECHNIQUE: Cranio-caudal (CC) and mediol ateral oblique (MLO) views of both breasts obtained with direct digital cap ture. The exam was evaluated by CAD Version 8.3.17. FINDINGS: This is a negative mammogram ( ACR Category 1). There is a stable fibroglandular pattern without significa nt change as compared to prior studies. There is no mammographic evidence of can cer. The breasts are of scattered density. CONCLUSION This is a NEGATIVE mammogram (ACR Catego ry 1). Routine screening mammography is recommended with the frequency dependent on the patient's age and breast cancer risk factors. A letter has been sent to this patient [facility]. Kandis Morrell MD IMG MAMMO ORDERABLES documented in this encounter Visit Diagnoses Not on filedocumented in this encounter Care Teams Safety Deposit Supervisor Relationship Specialty Start Date End Date Kandis Morrell MD PCP - General 08/21/10 05/04/15 [address] [place] [address] documented as of this encounter
--- OUTSIDE RECORDS SUMMARY | 2022-07-26 00:35 | XMS_ITS | Encounter Summary ---
:1955 Author Organization [facility] Address [address] [place] [address] Care Team Providers Name Role Phone KassidymichelleClaudia APRN Primary Care Provider Reason for Visit Auth/Cert Specialty Diagnoses / Procedures Referred By Contact Refer red To Contact Diagnoses 1 yr surv from 07/13/15 to assess polypectomy site Procedures PRO SIGMOIDOSCOPY, DIAGNOSTIC FLEXIBLE SIGMOIDOSCOPY Referral ID Status Reason Start Date Expiration Date Visits Requ ested Visits Authorized [id number] 1 1 Encounter Details Date Type Department Care Team Description 07/15/2016 Hospital Encounter Gastroenterology at [facility] Dakotah Clark [facility] [place] [address] [place] [address] [facility] [place], [place] [address] Social History Tobacco Use Types [...] Sign Reading Time Taken Comments Blood Pressure 167/87 07/15/2016 8:40 AM EDT Pulse 58 07/15/2016 8:50 AM EDT Temperature - - Respiratory Rate 18 07/15/2016 8:50 AM EDT Oxygen Saturation 99% 07/15/2016 8:50 AM EDT Inhaled Oxygen Concentration - - Weight 74.8 kg (165 lb) 07/15/2016 7:58 AM EDT Height 167.6 cm (5' 6) 07/15/2016 7:58 AM EDT Body Mass Index 26.63 07/15/2016 7:58 AM EDT documented in this encounter Discharge Instructions Discharge InstructionsLou Pierce RN - 07/15/2016 8:51 AM EDT Please call [phone] before 8pm with problems, questions or concerns, after 5pm call the Hospital at [phone] and ask to speak to the Emergency Medical Dispatcher welcome wagon host/hostess and the boiler plant operator will contact that person for you. Discharge instructions reviewed with patient who expresses understanding. You may have received medications before and/or during your procedure which effects your judgement and reaction time. Do not drive, operate machinery, drink alcoholic beverages or make important decisions for 24 hours. Be careful on stairs as you may be unsteady on your feet. You may eat a regular diet as tolerated. Do not smoke if you are alone. IV site: Slight redness or tenderness is normal, you can use a warm compress if you would like. If tenderness and/or redness increase or if foul drainage occurs, please contact your Doctor. Patient InstructionsDakotah Clark MD - 07/15/2016 8:49 AM EDT Please see Recommendations in the Provation procedure report which is documented in the procedural note in [facility]. AttachmentsThe following attachments cannot be sent through Care Everywhere. 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 SPECIMEN TO PATHOLOGY Routine 07/15/2016 8:50 AM Results for this EDT procedure are i n the results section. FLEXIBLE SIGMOIDOSCOPY 07/15/2016 8:26 AM 1 yr surv fr om EDT 07/13/15 to assess polypectomy site wants curtis prep FLEXIBLE SIGMOIDOSCOPY Routine 07/15/2016 8:26 AM Results for this EDT procedure are i n the results section. documented in this encounter Results Surgical Pathology Report (07/15/2016 8:50 AM EDT) Component Value Ref Test Analysis Performed At [facility] Range Method Time Signature Surgical [id number] ? Location: 4; [facility]; [facility] Report The signing pathologist has (i) examined the relevant preparation(s) for the [facility] specimen(s) and (ii) rendered or confirmed the diagnosis(es) . [facility] . ?Surgic al Pathology DIAGNOSIS Sigmoid colon, ??polypectomy: - Fragments of tubulovillous adenoma. CR-PX Electronically signed by: ??Primo Pisano MD Verified: ??07/19/2016 ?Pathologist CLINICAL INFORMATION Specimen Submitted: A - Polyp in sigmoid colon Clinical History: Recurrent tubulovillous adenoma of sigmoid colon Clinical Diagnosis: Recurrent tubulovillous adenoma of sigmoid colon SPECIMEN PROCESSING A - Labeled/Fixative: Polyp in sigmoid colon, formalin. Quantity/Size: Multiple, ranging from 0.3-1.0 cm. Tissue Description: Polypoid quinten to red-brown soft tissues . Sections/Processing: The lar kassidy polyp and fragments are submitted as (A4-A6). ??(T6) shb Specimen (Source) Anatomical Collection Method Collection Time Re ceived Time Location / / Volume Laterality 07/15/2016 8:50 AM EDT Dakotah Clark MD PATHOLOGY/CYTOLOGY ORDERABLE S Performing Organization Address City/State/[place] [address] Specimen to Pathology (surgical or derm) (07/15/2016 8:50 AM EDT) Specimen Anatomical Collection Method Collection Time Receive d Time (Source) Location / / Volume Laterality AP Specimen 07/15/2016 8:50 AM 6 8:50 EDT AM EDT Narrative [facility] - 07/15/2016 8:50 AM EDT Specimen requisition ordered. ??Separate Pathology report to follow Dakotah Clark MD PATHOLOGY/CYTOLOGY ORDERABLE S Performing Organization Address City/State/[place] [address] FLEXIBLE SIGMOIDOSCOPY (07/15/2016 8:26 AM EDT) Component Value Ref Test Analysis Performed At [facility] gist Range Method Time Signature FLEXIBLE [facility] SIGMOIDOSCOPY Endoscopy Procedure Date: 07/15/2016 8:26 AM ? Patient Name: Sophia Montes De Oca ? Date of : 1955 ? Age: 60 ? Order #: [id number] ? Instrument Name: [id number] ? Procedure: ? Flexible Sigmoidoscopy Indications: ? High risk colon cancer surveillance : ? Personal history of colonic p olyps Providers: ? Dakotah Clark MD, Chhaya ? JASSI Pichardo, Kelli Lackey MD: ?Claudia Perez Medicines: ? None Complications: ? No immediate complications. Procedure: ? Pre-Anesthesia Assessment: ? - ASA Grade Assessment: I - A normal, ? healthy patient. ? - CV Examination: normal. ? - Mental Status Examination: alert ? and oriented. ? - Respiratory Examination: cl ear to ? auscultation. ? The procedure, indications, b enefits, ? [...] flex ible ? sigmoidoscopy was accomplishe d with ? ease. The patient tolerated t he ? procedure well. The quality o f the ? bowel preparation was excelle nt. ? Findings: ? Previous tattoo identified at 20 cm. Adjacent to this ? was a 1.0 cm sessile, soft polyp at previous ? polypectomy site. This polyp was removed using hot ? snare in a piecemeal fashion. No residual polyp ? identified at completion of procedure. ? Impression: ?Recurrent tubulovillous adenoma of ? sigmoid colon Recommendation: ?- Await pathology results. ? Dakotah Clark MD 07/15/2016 8:47:59 AM This report has been signed electronically. Number of Addenda: 0 Note Initiated On: 07/15/2016 8:26 AM Specimen (Source) Anatomical Collection Method Collection Time Re ceived Time Location / / Volume Laterality 07/15/2016 8:26 AM EDT Claudia Perez APRN GENERAL SURGICAL ORDERABLES Performing Organization Address City/State/ZIP Code Phon e Number [employer] documented in this encounter Visit Diagnoses Not on filedocumented in this encounter Administered Medications Inactive Administered Medications - up to 3 most recent administrations Medication Order MAR Action Action Date Dose Rate Site lactated ringers infusion 100 mL/hr, Intravenous, CONTINUOUS, Starting on Mon at 0815, Until Fri07/15/16 at 1121, Endoscopy (Day of Procedure) documented in this encounter Active and Recently Administered Medications Times are shown in EDT. Continuous Medication Order 07/13/2016 07/14/2016 07/15/2016 lactated ringers infusion 0815 ( Due) 100 mL/hr, at 100 mL/hr, Intravenous, CO NTINUOUS, Starting 07/15/16 at 0815, Until 07/15/16 at 1121, Endo (Day of Procedure) documented in this encounter Care Teams Craft Coordinator Relationship Specialty Start Date End Date Claudia Perez APRN PCP - General 05/05/15 05/13/19 documented as of this encounter
--- OUTSIDE RECORDS SUMMARY | 2022-07-26 00:35 | XMS_ITS | Encounter Summary ---
:1955 Author Organization [facility] Address [facility] [place] [address] Care Team Providers Name Role Phone Claudia Perez APRN Primary Care Provider Encounter Details Date Type Department Care Team Description 05/30/2017 Hospital Encounter Mammography at [facility] Claudia Perez Encounter for [facility] Benjamin screening mammogram Drive [address] for breast cancer [facility] [address] [place], [place] [phone] [id number] Social History Tobacco Use Types Packs/Day Years [...] End Date multivitamin (THERAGRAN) tablet 0 04/2011 documented as of this encounter Plan of Treatment Not on filedocumented as of this encounter Procedures Procedure Name Priority Date/Time Associated Diagnosis Comme nts MAMMO SCREENING CAD Routine 05/30/2017 8:33 AM Encounter for R esults for this AND JAKOB BILATERAL EDT screening mammogram pr ocedure are in for breast cancer the result s section. documented in this encounter Results Mammo Screen CAD and Jakob Bilat (Generic) (05/30/2017 8:33 AM EDT) Anatomical Region Laterality Modality Breast Bilateral Mammography Specimen (Source) Anatomical Location Collection Method / Collectio n Time Received Time / Laterality Volume Narrative 05/30/2017 8:47 AM EDT Bilateral mammography Reason for exam: screen Technique: CC and MLO views were obtaine d of each breast using standard 2-D mammography as well as 3-D tomosynthesis . Computer aided detection was used. Comparison: This is compared with prior images. Findings: The breasts are heterogeneousl y dense, which may obscure small masses. There are no suspicious microcalcificati ons, masses, or areas of distortion. The pattern is stable. Stable bilateral foca l asymmetries. Stable biopsy marker at the benign biopsy site of the right [address]. Conclusion: No mammographic evidence of malignancy. Recommendation: Routine screening. BI-RADS Category 2: Benign findings. * ??The [employer] an d The Society of Breast Imaging recommend annual screening beginning at age 40 for the general female population. * ??Screening should continue as long as a woman is in good health and is expected to live 10 more years or longer . * ??All women should be familiar with th e known benefits, limitations, and potential harms linked to breast cancer screening. They also should know how their breasts normally look and feel and report any breast changes to a health care provider right away. * ??Some women, because of their family history, a genetic tendency, or certain other factors, should be screened with M RIs along with mammograms. (The number of women who fall into this category is very small.) The patient and health care provider should discuss the patient hist ory and decide if earlier screening and breast MRI are appropriate. Claudia Perez APRN [employer] MAMMO ORDERABLES documented in this encounter Visit Diagnoses Diagnosis Encounter for screening mammogram for br east cancer documented in this encounter Care Teams Cutter Hot Knife Relationship Specialty Start Date End Date Claudia Perez APRN PCP - General 05/05/15 05/13/19 documented as of this encounter
--- OUTSIDE RECORDS SUMMARY | 2022-07-26 00:35 | XMS_ITS | Encounter Summary ---
:1955 Author Organization [facility] [place] [address] Care Team Providers Name Role Phone Kandis Morrell MD Primary Care Provider Encounter Details Date Type Department Care Team Description 07/12/2014 Hospital Encounter Gastroenterology at [facility] Lenn[place] To [facility] [place] [address] [place] [address] [facility] [place], [place] [address] Social History Tobacco Use Types [...] Sign Reading Time Taken Comments Blood Pressure 135/73 07/12/2014 9:50 AM EDT Pulse 59 07/12/2014 9:50 AM EDT Temperature 36.6 ??C (97.9 ??F) 07/12/2014 9:10 AM EDT Respiratory Rate 16 07/12/2014 9:50 AM EDT Oxygen Saturation 99% 07/12/2014 9:50 AM EDT Inhaled Oxygen Concentration - - Weight - - Height - - Body Mass Index - - documented in this encounter Discharge Instructions Discharge InstructionsDanielle Hansen RN - 07/12/2014 9:51 AM EDT Colonoscopy and polyp removal What to expect after the procedure You may feel a little more gassy or bloated than usual, this is normal. You should expect the return of normal bowel function in the next 2 to 3 days. Because some polyps were removed, you may see a little blood with the next few bowel movements, this should be a small amount ( less than a few tablespoons) and will resolve on it's own. ACTIVITY Because of the sedation that you received Your judgement and reaction time are effected ?? Go home and rest for the remainder for the day. You may resume your normal activities tomorrow ?? Change from one position to the next slowly because you may lose your balance unexpectedly. ?? Be careful on stairs, as you may be unsteady. ?? Avoid strenuous activity for 48 to 72 hrs FOR THE NEXT 24 HRS ?? DO NOT DRIVE OR OPERATE MACHINERY ?? DO NOT DRINK ALCOHOLIC BEVERAGES ?? DO NOT SIGN LEGAL DOCUMENTS ?? If you are a smoker: DO NOT SMOKE WHILE YOU ARE ALONE Diet ?? Start by eating small portions of foods that ordinarily will not upset your stomach, avoid gas producing foods for the next few days. ?? Be gentle with what you choose to start with ?? A soft diet may be helpful for the next 3 days as this may help to keep your stools soft. ?? Drink plenty of fluids ( unless your doctor has told you not to). Medicines Avoid medicines that influence the way your blood clots for the next week. These would include anti-inflammatory medicine, such as ibuprofen( Advil, Motrin) and naproxen ( Aleve). If you need something for discomfort, Tylenol (Acetaminophen) is safe if used as directed. Your Doctor will tell you whento restart your prescribed blood thinners The IV site-- slight tenderness, or redness is normal, you can use warm compresses if you get concerned. If the tenderness +/or redness increases or foul drainage and a red streak occurs, please contact your PCP immediately. When should you call for help? Call 911 anytime you think you may need emergency care. For example If you pass out (loss of consciousness) If you pass maroon or bloody stools If you have severe belly pain Call your healthcare provider or seek immediate medical care if: Your stools are black or tar like Your stools have streaks of blood that is more pronounced with each BM You have belly pain, or your belly is swollen and firm You vomit You have a fever You are very dizzy Watch closely for changes in your health, and be sure to contact your doctor if you have any problems. Your Doctor will let you know when you will need your next colonoscopy. The results of your test andyour risk for colorectal cancer will help your doctor decide how often you need to be checked. [facility] [phone] 8a-5p Same Day Endo [phone] 7a-8p Otherwise contact [phone] and ask to speak to the sales audit clerk cotton farmworker Follow up care is a landon part of your treatment and safety. Be sure to make and go to all appointments, and call your doctor if you are having problems. Discharge instructions reviewed with patient who expresses understanding AttachmentsThe following attachments cannot be sent through Care Everywhere. POLYPS (SAMI)documented in this encounter Medications at Time of Discharge Medication Sig Dispensed Refills Start Date End Date multivitamin (THERAGRAN) tablet 0 04/2011 Calcium Carbonate-Vitamin D3 (CALCIUM 600 0 12/04/2010 07/15/2016 WITH VITAMIN D3) 600 mg(1,500mg) -400 unit Cap documented as of this encounter H&P Notes Lennox To MD - 07/12/2014 9:26 AM EDT Gastroenterology and Hepatology Pre-Procedure History and Physical Exam Procedure: flexible sigmoidoscopy Indication: followup of TVA There is no problem list on file for this patient. EXAM: HEENT: Airway examined, oropharynx clear Mallampati Score: I (soft palate, uvula, fauces, tonsillar pillars visible) LUNGS: Clear to auscultation HEART: Regular rate and rhythm, normal S1, S2 ABDOMEN: Normal bowel sounds, soft, non tender, non distended, A/P Proceed with the planned endoscopic procedure. ASA 1 - Normal health patient Risks and benefits of the procedure explained to the patient. Consent signed. documented in this encounter Miscellaneous Notes Miscellaneous - Provider, Scanning - 07/12/2014 9:38 PM EDT Miscellaneous - Provider, Scanning - 07/12/2014 9:20 AM EDT documented in this encounter Plan of Treatment Not on filedocumented as of this encounter Procedures Procedure Name Priority Date/Time Associated Comments Diagnosis SURGICAL PATHOLOGY Routine 07/12/2014 9:49 AM Res ults for this REPORT EDT procedure are i n the results section. SPECIMEN TO PATHOLOGY Routine 07/12/2014 9:49 AM Results for this EDT procedure are i n the results section. FLEXIBLE SIGMOIDOSCOPY 07/12/2014 9:25 AM 1 yr F OLLOW UP EDT tubulovillous adenoma partially hidden PT WANTS NO SEDATION FLEXIBLE SIGMOIDOSCOPY Routine 07/12/2014 9:17 AM Results for this EDT procedure are i n the results section. documented in this encounter Results Surgical Pathology Report (07/12/2014 9:49 AM EDT) Component Value Ref Test Analysis Performed At [facility] Method Time Signature Surgical CERNER Pathology ? [facility] Report ? Provider: ?? LENNOX TO ?? Pt. Name: ?? SOPHIA MONTES DE OCA ? Acc #: ?[id number] ?Pt. MRN: ?[id number] ? Col Date: ?? 07/12/2014 ?/Sex: ?1 10/19/1954,(58 ? years),Female ? Rec Date: ?? 07/12/2014 ?LOC: ?4T ? SURGICAL PATHOLOGY ? ---Pathologic Diagnosis--- ? A - Residual polyp: ? Tubulovillous adenoma. ? CR-0 ; CR-PX ? 07/14/14 ? JRP ? 07/14/14 Verified by: ? Lety MUNSON, Juan C Cervantes ? Pathologist ? (Electronic Si gnature) ? The attending pathologist whose signature appears o n this report has ? reviewed all diagnostic slides and has edited the mark ss and/or ? microscopic portion of the report in rendering the fi nal pathologic ? diagnosis. ? ---Gross Description--- ? A - Labeled/Fixative: Residual polyp, formalin. ? Quantity/Size: Single, 0.5 cm. ? Tissue Description: Soft, pink tissue. ? Sections/Processing: (T1) ??sns ? ---Clinical Information--- ? Specimen Submitted: ? A - Residual polyp ? Clinical History: ? Residual polyp in sigmoid colon ? Clinical Diagnosis: ? Same Specimen (Source) Anatomical Collection Method Collection Time Re ceived Time Location / / Volume Laterality 07/12/2014 9:49 AM EDT Lennox To MD PATHOLOGY/CYTOLOGY ORDERABLE S Performing Organization Address City/State/[place] [address] [facility] Specimen to Pathology (surgical or derm) (07/12/2014 9:49 AM EDT) Specimen Anatomical Collection Method Collection Time Receive d Time (Source) Location / / Volume Laterality AP Specimen 07/12/2014 9:49 AM 4 9:49 EDT AM EDT Narrative DURAN BELLOIUM - 07/12/2014 9:49 AM E DT Specimen requisition ordered. ??Separate Pathology report to follow Lennox To MD PATHOLOGY/CYTOLOGY ORDERABLE S Performing Organization Address City/State/ZIP [facility] [place] [address] DURAN HERNANDEZ FLEXIBLE SIGMOIDOSCOPY (07/12/2014 9:17 AM EDT) Component Value Ref Test Analysis Performed At [facility] Method Time Signature FLEXIBLE [facility] [employer] SIGMOIDOSCOPY Endoscopy Patient Name: Sophia Montes De Oca ? Procedure Date: 07/12/2014 9:17 AM ? N: [id number] ? Date of : 1955 ? Age: 58 ? Order #: [id number] ? Procedure: ? Flexible Sigmoidoscopy Indications: ? residual TVA at 22 cm. Providers: ? Lennox To MD, Chaya Fallon , ? RN, Donovan Lopez L. ? Andrea, Tear Down Man Referring MD: ?Kandis Morrell MD Medicines: ? None Complications: ? No immediate complications. Procedure: ? Pre-Anesthesia Assessment: ? - ASA Grade Assessment: I - A normal, ? healthy patient. ? - Mental Status Examination: alert ? and oriented. ? - Airway Examination: normal ? oropharyngeal airway and neck ? mobility. ? - Respiratory Examination: cl ear to ? auscultation. ? - CV Examination: normal. ? The procedure, indications, b enefits, ? [...] of the bowel preparat ion was ? good. ? Findings: ? At 22 cm, previous tattoo was seen and on other ? walll, behind fold was a small sessile polyp. With ? some difficulty, this was position so that snare ? could be applied and polyp removed in piecemeal ? technique with cautery. No residual polyp seen. ? Impression: ?Residual polyp. Recommendation: ?- Await pathology results. ? - Perform a colonoscopy in 1 year. ? Lennox To MD 07/12/2014 9:48 AM This report has been signed electronically. Number of Addenda: 0 Note Initiated On: 07/12/2014 9:17 AM Specimen (Source) Anatomical Collection Method Collection Time Re ceived Time Location / / Volume Laterality 07/12/2014 9:17 AM EDT Kandis Morrell MD GENERAL SURGICAL ORDERABLES Performing Organization Address City/State/ZIP Code Phon e Number [employer] documented in this encounter Visit Diagnoses Not on filedocumented in this encounter Care Teams Lasting Machine Operator Hand Method Relationship Specialty Start Date End Date Kandis Morrell MD PCP - General 08/21/10 05/04/15 [address] [place] [address] documented as of this encounter
--- OUTSIDE RECORDS SUMMARY | 2022-07-26 00:35 | XMS_ITS | Encounter Summary ---
:1955 Author Organization [facility] [place] [address] Care Team Providers Name Role Phone Kandis Morrell MD Primary Care Provider Encounter Details Date Type Department Care Team Description 12/23/2011 Surgery Gastroenterology at [facility] [place] [place] Lennox To, COLONOSCOPY, [facility] Dav black MD POLYPECTOMY, [place] [address] [facility] LESION BY SNARE ([facility] [phone] 4Le) GASTROENTEROLOGY DEPT. [place], [place] [address] Social History Tobacco Use Types Packs/Day Years Used Date Never Smoker Alcohol Use Standard Drinks/Week Comments Yes 0 [...] Sign Reading Time Taken Comments Blood Pressure 125/71 12/23/2011 4:00 PM EDT Pulse 65 12/23/2011 4:00 PM EDT Temperature 36.7 ??C (98.1 ??F) 12/23/2011 2:58 PM EDT Respiratory Rate 16 12/23/2011 4:00 PM EDT Oxygen Saturation 97% 12/23/2011 4:00 PM EDT Inhaled Oxygen Concentration - - Weight - - Height - - Body Mass Index - - documented in this encounter Discharge Instructions Discharge InstructionsChung Bro RN - 12/23/2011 4:01 PM EDT You may have received medication before and/or during your procedure which effects judgement and reaction time. Do not drive, operate machinery, drink alcoholic beverages, or make important decisions for 24 hours. Be careful on stairs, as you may be unsteady on your feet. You may eat a regular diet as tolerated. Do not smoke if you are alone. IV site -- slight redness or tenderness is normal. You may use a warm compress. If tenderness and redness increases or foul drainage occurs please contact your M.D. Please call [phone] before 5 pm with problems, questions or concerns. After 5pm call [phone] and ask to speak with the pharmacogeneticist floor tiling professional. Discharge instructions reviewed with patientwho expresses understanding. Patient InstructionsLennox To MD - 12/23/2011 4:30 PM EDT Please see Recommendations in the Provation procedure report which is documented in the procedural note in E-DH. AttachmentsThe following attachments cannot be sent through Care Everywhere. COLONOSCOPY: WHAT TO EXPECT AT HOME ([employer] [place])documented in this encounter Medications at Time of Discharge Medication Sig Dispensed Refills Start Date End Date multivitamin (THERAGRAN) tablet 0 04/2011 Cpnhghbhree-Ylkjthjvg-Mxq C-Mn 0 12/0412/23/2012 (GLUCOSAMINE COMPLEX) 500-400 mg Cap Calcium Carbonate-Vitamin D3 (CALCIUM 600 0 12/04/2010 07/15/2016 WITH VITAMIN D3) 600 mg(1,500mg) -400 unit Cap documented as of this encounter Miscellaneous Notes Miscellaneous - Provider, Scanning - 12/24/2011 5:57 AM EDT Miscellaneous - Provider, Scanning - 12/23/2011 3:42 PM EDT documented in this encounter Plan of Treatment Not on filedocumented as of this encounter Procedures Procedure Name Priority Date/Time Associated Comments Diagnosis SURGICAL PATHOLOGY Routine 12/23/2011 6:08 PM Res ults for this REPORT EDT procedure are i n the results section. SPECIMEN TO PATHOLOGY Routine 12/23/2011 4:07 PM Results for this EDT procedure are i n the results section. COLONOSCOPY, 12/23/2011 3:19 PM 1 YR FOLLOW UP COLO POLYPECTOMY, REMOVAL EDT LESION BY SNARE (WRVU 4.67) COLONOSCOPY Routine 12/23/2011 3:14 PM Results f or this EDT procedure are i n the results section. documented in this encounter Results SURGICAL PATHOLOGY REPORT (12/23/2011 6:08 PM EDT) [facility] gist Method Time Signature Surgical CERNER Pathology ? [facility] Report ? Provider: ?? LENNOX TO ?? Pt. Name: ?? SOPHIA MONTES DE OCA ? Acc #: ?[id number] ?Pt. MRN: ?[id number] ? Col Date: ?? 12/23/2011 ? /Sex: ?1 10/19/1954,(56 ? years),Female ? Rec Date: ?? 12/23/2011 ? LOC: ?4T ? SURGICAL PATHOLOGY ? ---Pathologic Diagnosis--- ? Sigmoid colon, polypectomy: ?Fragments of villous adenoma. ? CR-0, CR-PX ? 12/25/11 ? JLL ? 12/26/11 Verified by: ? Primo Pisano MD ? Pathologist ? (Electronic Si gnature) ? The attending pathologist whose signature appears o n this report has ? reviewed all diagnostic slides and has edited the mark ss and/or ? microscopic portion of the report in rendering the fi nal pathologic ? diagnosis. ? ---Microscopic Description--- ? Slides reviewed, microscopic description not recorded . ? ---Gross Description--- ? Labeled/Fixative: ? Sigmoid colon polyp, formalin . ? Qty/Size/Weight: ?Three, averaging 0.4 cm. ? Tissue Description: ?? Soft, neves tissues. ? Sections/Processing: ??(T1) ??vms/SNS ? ---Clinical Information--- ? Specimen Submitted: ? A - Sigmoid colon polyp ? Clinical History/Diagnosis: ? History of villous ad enoma sigmoid, now with some residual polyp removed ? with snare Specimen (Source) Anatomical Collection Method Collection Time Re ceived Time Location / / Volume Laterality 12/23/2011 6:08 PM EDT Lennox To MD PATHOLOGY/CYTOLOGY ORDERABLE S Performing Organization Address City/State/ZIP [place] [address] DURAN BELLOIUM Specimen to Pathology (surgical or derm) (12/23/2011 4:07 PM EDT) Specimen Anatomical Collection Method Collection Time Receive d Time (Source) Location / / Volume Laterality AP Specimen 12/23/2011 4:07 PM 201 2 4:07 EDT PM EDT Narrative DURAN ARCHIBALDENNIUM - 12/23/2011 4:07 PM E DT Specimen requisition ordered. ??Separate Pathology report to follow Lennox To MD PATHOLOGY/CYTOLOGY ORDERABLE S Performing Organization Address City/State/[place] [address] [facility] (12/23/2011 3:14 PM EDT) [facility] Method Time Signature COLONOSCOPY [facility] PROVATION Endoscopy Patient Name: Sophia Montes De Oca ? Procedure Date: 12/23/2011 3:14 PM ? [employer]: [id number] ? Date of : 1955 ? Age: 56 ? Order #: [id number] ? Procedure: ? Colonoscopy Indications: ? Screening for colorectal malignant ? neoplasm, High risk colon can cer ? surveillance: Personal histor y of ? colonic polyps Providers: ? Lennox To MD, Marvin Gonzalez , ? RN, Jeannette Mena, It Consulting Manager Referring MD: ?Kandis Morrell MD Medicines: ? Midazolam 3 mg IV, Fentanyl 150 ? micrograms IV Complications: ? No immediate [...] direct visuali zation, ? advanced to the cecum, identi fied by ? appendiceal orifice & ileocec al ? valve. Careful inspection was made as ? the colonoscope was withdrawn . The ? colonoscopy was performed wit perez ? difficulty. The patient lisa ated the ? procedure well. The quality o f the ? bowel preparation was good. ? Findings: ? Adenike ink tattoo seen at 20 cm. On the adjacent wall, ? behind a haustral fold there was a small sessile ? polyp that was removed with snare cautery in a ? piecemeal fashion. No residual polyp seen at ? completion of procedure. ? 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 site. Recommendation: ?- Await pathology results. ? - Perform a flexible sigmoido scopy in ? 1 year. ? Lennox To MD 12/23/2011 3:53 PM This report has been signed electronically. Number of Addenda: 0 Note Initiated On: 12/23/2011 3:14 PM Specimen (Source) Anatomical Collection Method Collection Time Re ceived Time Location / / Volume Laterality 12/23/2011 3:14 PM EDT Kandis Morrell MD GENERAL SURGICAL ORDERABLES Performing Organization Address City/State/ZIP Code Phon e Number [employer] documented in this encounter Visit Diagnoses Not on filedocumented in this encounter Administered Medications Inactive Administered Medications - up to 3 most recent administrations Medication Order MAR Action Action Date Dose Rate Site fentaNYL 50mcg/mL injection Given 12/23/2011 3:26 PM EDT 50 mcg ONCE PRN, Starting on 12/23/11 at 1522, Until 12/23/11 at 1914, Pain, Intra-Operative (Intra-Procedure), Routine Given 12/23/2011 3:22 PM EDT 100 mcg midazolam (VERSED) injection Given 12/23/2011 3:26 PM EDT 1 mg ONCE PRN, Starting on 12/23/11 at 1522, Until 12/23/11 at 1914, Sleep, Intra-Operative (Intra-Procedure), Routine Given 12/23/2011 3:22 PM EDT 2 mg documented in this encounter Active and Recently Administered Medications Times are shown in EDT. PRN Medication Order 12/21/2011 12/22/2011 12/23/2011 fentaNYL 50mcg/mL injection (CANCELED) 1522 (Given - Provider: Marvin Gonzalez RN)1526 (Given - Provider: Marvin Gonzalez RN - Comment: facial grimace with eyes open) ONCE PRN, Starting 12/23/11 at 1522, Until 12/23/11 at 1914, Pain, Intra- Operative (Intra-Procedure), Routine midazolam (VERSED) injection (CANCELED) 1522 (Given - Provider: Marvin Gonzalez RN)1526 (Given - Provider: Marvin Gonzalez RN - Comment: facial grimace with eyes open) ONCE PRN, Starting 12/23/11 at 1522, Until 12/23/11 at 1914, Sleep, Intra- Operative (Intra-Procedure), Routine documented in this encounter Care Teams Workforce Planner Relationship Specialty Start Date End Date Kandis Morrell MD PCP - General 08/21/10 05/04/15 [address] [place] [address] documented as of this encounter
--- OUTSIDE RECORDS SUMMARY | 2022-07-26 00:35 | XMS_ITS | Encounter Summary ---
:1955 Author Organization [facility] [place] [address] Care Team Providers Name Role Phone Kandis Morrell MD Primary Care Provider Encounter Details Date Type Department Care Team Description 04/29/2014 Hospital Encounter Mammography at [facility] Kandis Cortes MD [address] [place] [address] [place] [address] Social History Tobacco Use Types Packs/Day [...] Diagnosis Comme nts MAMMO SCREENING CAD Routine 04/29/2014 9:29 AM Re sults for this BILATERAL EDT procedure are i n the results section. documented in this encounter Results Mammo digital bilateral Screening with CAD (04/29/2014 9:29 AM EDT) Anatomical Region Laterality Modality Breast Bilateral Mammography Specimen (Source) Anatomical Collection Method Collection Time Re ceived Time Location / / Volume Laterality 04/29/2014 9:29 AM EDT Narrative 05/02/2014 10:29 AM EDT Reason for Exam: Screening ?? Technique: Craniocaudal (CC) and Medio-l ateral Oblique (MLO) views of both breasts obtained with direct digital cap ture. ?? The exam was evaluated by CAD version 8. 3.17. ?? Findings: ?? This is a negative mammogram (ACR Catego ry 1). There is a stable fibroglandular pattern without significant change from prior studies. There is no mammographic evidence of can cer. The breasts are of scattered density. ?? CONCLUSION: This is a NEGATIVE mammogram (ACR Catego ry 1). ?? Routine screening mammography is recomme nded with the frequency dependent upon the patients age and breast cancer risk factors. ?? A letter has been sent to this patient b y the breast imaging center. Procedure Note Kwabena Oconnor MD - 05/02/2014Format ting of this note might be different from the original. Reason for Exam: Screening Technique: Craniocaudal (CC) and Medio-l ateral Oblique (MLO) views of both breasts obtained with direct digital cap ture. The exam was evaluated by CAD version 8. 3.17. Findings: This is a negative mammogram (ACR Catego ry 1). There is a stable fibroglandular pattern without significant change from prior studies. There is no mammographic evidence of can cer. The breasts are of scattered density. CONCLUSION: This is a NEGATIVE mammogram (ACR Catego ry 1). Routine screening mammography is recomme nded with the frequency dependent upon the patients age and breast cancer risk factors. A letter has been sent to this patient b y the breast imaging center. Kandis Morrell MD IMG MAMMO ORDERABLES documented in this encounter Visit Diagnoses Not on filedocumented in this encounter Care Teams Hydraulic Press Servicer Relationship Specialty Start Date End Date Kandis Morrell MD PCP - General 08/21/10 05/04/15 [address] [place] [address] documented as of this encounter
--- OUTSIDE RECORDS SUMMARY | 2022-07-26 00:35 | XMS_ITS | Encounter Summary ---
:1955 Author Organization [facility] [place] [address] Care Team Providers Name Role Phone KassidymichelleClaudia APRN Primary Care Provider Reason for Visit Auth/Cert Specialty Diagnoses / Procedures Referred By Contact Refer red To Contact Diagnoses 1 yr surv from 07/13/15 to assess polypectomy site Procedures PRO SIGMOIDOSCOPY, DIAGNOSTIC FLEXIBLE SIGMOIDOSCOPY Referral ID Status Reason Start Date Expiration Date Visits Requ ested Visits Authorized [id number] 1 1 Encounter Details Date Type Department Care Team Description 07/15/2016 Surgery Gastroenterology at [facility] Dakotah Clark FLEXIBLE SIGMOIDOSCOPY [facility] [place] [address] [facility] [phone] [facility] [place], [place] [address] Social History Tobacco Use Types [...] - 07/15/2016 8:51 AM EDT Please call [phone] before 8pm with problems, questions or concerns, after 5pm call the Hospital at [phone] and ask to speak to the Deputy Sheriff K9 Handler stoneworker and the dishtank operator will contact that person for you. [...] be sent through Care Everywhere. SIGMOIDOSCOPY: POST-OP ([place])documented in this encounter Medications at Time of [...] Component Value Ref Test Analysis Performed At [facility] Range Method Time Signature Surgical [id number] ? Location: 4; [facility]; [facility] Report The signing pathologist has (i) [...] Organization Address City/State/[place] [address] Specimen to Pathology (surgical or derm) (07/15/2016 8:50 AM EDT) Specimen Anatomical Collection Method Collection Time Receive d Time (Source) Location / / Volume Laterality AP Specimen 07/15/2016 8:50 AM 6 8:50 EDT AM EDT Narrative [facility] - 07/15/2016 8:50 AM EDT Specimen requisition ordered. ??Separate Pathology report to follow Dakotah Clark MD PATHOLOGY/CYTOLOGY ORDERABLE S Performing Organization Address City/State/[place] [address] FLEXIBLE SIGMOIDOSCOPY (07/15/2016 8:26 AM EDT) Component Value Ref Test Analysis Performed At [facility] gist Range Method Time Signature FLEXIBLE [facility] SIGMOIDOSCOPY Endoscopy Procedure Date: 07/15/2016 8:26 AM ? Patient Name: Sophia Montes De Oca ? Date of : 1955 ? Age: 60 ? Order #: [id number] ? Instrument Name: [id number] ? Procedure: ? Flexible Sigmoidoscopy Indications: ? [...] CONTINUOUS, Starting on Mon at 0815, Until 07/15/16 at 1121, Endoscopy (Day of Procedure) documented in this encounter Active and Recently Administered Medications Times are shown in EDT. Continuous Medication Order 07/13/2016 07/14/2016 07/15/2016 lactated ringers infusion 0815 ( Due) 100 mL/hr, at 100 mL/hr, Intravenous, CO NTINUOUS, Starting 07/15/16 at 0815, Until 07/15/16 at 1121, Endo (Day of Procedure) documented in this encounter Care Teams Band Splicer Relationship Specialty Start Date End Date Claudia Perez APRN PCP - General 05/05/15 05/13/19 documented as of this encounter
--- OUTSIDE RECORDS SUMMARY | 2022-07-26 00:35 | XMS_ITS | Encounter Summary ---
:1955 [place] [address] Care Team Providers Name Role Phone Claudia Perez APRN Primary Care Provider Encounter Details Date Type Department Care Team Description 03/26/2017 Hospital Encounter Vascular Lab at [facility] rotid disease, [facility] T, [place] [address] Social History Tobacco Use Types Packs/Day Years [...] Name Priority Date/Time Associated Diagnosis Comme nts CAROTID DUPLEX, Routine 03/26/2017 1:49 PM Carotid disease, Re sults for this BILATERAL EDT bilateral procedure are i n the results section. documented in this encounter Results Cerebrovascular Duplex, Bilateral (03/26/2017 1:49 PM EDT) Component Value Ref Test Analysis Performed At [facility] Range Method Time Signature VB Text Department: Vascular Surgery Lab [facility] Report Patient: [id number] (SOPHIA HUGHES) CPT: 46082 ICD10: I77.9 Referring Physician: JANELL LAKE M.D. [...] terioles documented in this encounter Care Teams Tightening Machine Operator Relationship Specialty Start Date End Date Claudia Perez APRN PCP - General 05/05/15 05/13/19 documented as of this encounter
--- OUTSIDE RECORDS SUMMARY | 2022-07-26 00:35 | XMS_ITS | Encounter Summary ---
:1955 Author Organization [facility] [place] [address] Care Team Providers Name Role Phone Kandis Morrell MD Primary Care Provider Encounter Details Date Type Department Care Team Description 04/15/2012 Orders Only Radiology Shreya Wesley MD [facility] [place] [address] NUCLEAR MEDICINE [phone] [place] [id number] (Wo rk) Social History Tobacco Use Types [...] Associated Diagnosis Comme nts FILM LIBRARY Routine 04/15/2012 10:00 AM Results for this STORAGE ONLY MAMMO EDT procedure are in the results section. documented in this encounter Results FILM LIBRARY- STORAGE ONLY MAMMO (04/15/2012 10:00 AM EDT) Specimen (Source) Anatomical Collection Method Collection Time Re ceived Time Location / / Volume Laterality 04/15/2012 10:00 AM EDT Narrative RAD - 03/09/2014 2:57 PM EDT This is a non-reportable exam. Procedure Note Sheldon Monaco - 03/09/2014Formatting of t his note might be different from the original. This is a non-reportable exam. Shreya Wesley MD IMG FILM LIBRARY ORDERABLES Performing Organization Address City/State/ZIP Code Phon e Number [facility] RAD [address] [facility] [place] [address] documented in this encounter Visit Diagnoses Not on filedocumented in this encounter Care Teams Basketball Coach Relationship Specialty Start Date End Date Kandis Morrell MD PCP - General 08/21/10 05/04/15 [address] [place] [address] documented as of this encounter
--- OUTSIDE RECORDS SUMMARY | 2022-07-26 00:35 | XMS_ITS | Encounter Summary ---
:1955 Author Organization [facility] Address [facility] [place] [address] Care Team Providers Name Role Phone Jesemichelle Claudia Benjamin APRN Primary Care Provider Reason for Visit Auth/Cert - Closed Specialty Diagnoses / Procedures Referred By Contact Refer red To Contact Diagnoses 1 yr surv from 07/12 Procedures PRO COLONOSCOPY, DIAGNOSTIC COLONOSCOPY, DIAGNOSTIC Referral ID Status Reason Start Date Expiration Date Visits Requ ested Visits Authorized [id number] Closed 1 1 Encounter Details Date Type Department Care Team Description 07/13/2015 Surgery Gastroenterology at [facility] Anais Renner, COLONOSCOPY, [facility] Dav [place] [address] [facility] [phone] GASTROENTEROLOGY DEPT. [place], [place] [address] Social History Tobacco Use Types [...] Sign Reading Time Taken Comments Blood Pressure 149/66 07/13/2015 2:00 PM EDT Pulse 70 07/13/2015 2:00 PM EDT Temperature - - Respiratory Rate 16 07/13/2015 2:00 PM EDT Oxygen Saturation 100% 07/13/2015 2:00 PM EDT Inhaled Oxygen Concentration - - [...] be sent through Care Everywhere. COLON POLYPS (UZBEK)documented in this encounter Medications at Time of [...] PM 5 2:18 EDT PM EDT Narrative [facility] - 07/13/2015 2:18 PM E DT Specimen requisition ordered. ??Separate Pathology report to follow Anais Renner MD PATHOLOGY/CYTOLOGY ORDERABLE S Performing Organization Address City/State/[place] [address] [facility] Surgical Pathology Report (07/13/2015 2:17 PM EDT) Component Value Ref Test Analysis Performed At [facility] Range Method Time Signature Surgical The signing pathologist has (i) examined the relevant preparation(s) for the [facility] Pathology specimen(s) and (ii) rendered or confirmed the diagnosis(e s). [facility] Report Accession Number: [id number] ?Location: 4 T; EA07; A . ?Surgic [...] Organization Address City/State/[place] [address] [facility] MILLENNIUM COLONOSCOPY (07/13/2015 12:24 PM EDT) Component Value Ref Test Analysis Performed At [facility] Range Method Time Signature COLONOSCOPY [facility] PROVATION Endoscopy Patient Name: Sophia Montes De Oca ? Procedure Date: 07/13/2015 12:24 PM ? Date of : 1955 ? Age: 59 ? Order #: [id number] ? Procedure: ? Colonoscopy Indications: ? High risk colon cancer surveillance : ? Personal history of adenoma w ith ? villous component Providers: ? Derek Cruz, ? RN, Natalee Serrato Referring MD: ?Claudia Perez Medicines: ? Midazolam 3 mg IV, Fentanyl [...] to the ? procedure by the physician reyes sylvester the ? nurse. The procedure was veri figeremias in ? the pre-procedure area in the [...] assess polypectomy site ? Anais Renner Anais Roberson Zurdo, 07/13/2015 2:20 PM This report has been signed electronically. Number of Addenda: 0 Note Initiated On: 07/13/2015 12:24 PM Specimen (Source) Anatomical Collection Method Collection Time Re ceived Time Location / / Volume Laterality 07/13/2015 12:24 PM EDT Claudia Perez STEREO OPERATOR GENERAL SURGICAL ORDERABLES Performing Organization Address City/State/ZIP Code Phon e Number [employer] documented in this encounter Visit Diagnoses Not on filedocumented in this encounter Administered Medications Inactive Administered Medications - up to 3 most recent administrations Medication Order MAR Action Action Date Dose Rate Site fentaNYL 50 mcg/mL multi-dose Given 07/13/2015 1:13 PM EDT 50 mc g Right Arm injection ONCE PRN, Starting on Sabrina 07/13/15 at 1313, Until Sabrina 10/15/15 at 1440, Intra-Operative (Intra-Procedure), Routine Given 07/13/2015 1:05 PM EDT 50 mcg Right Arm Given 07/13/2015 12:55 PM EDT 50 mcg Righ t Arm lactated ringers infusion New Bag 07/13/2015 1:00 PM EDT 100 mL/hr 100 mL/hr 100 mL/hr, Intravenous, CONTINUOUS, Starting on Sabrina 07/13/15 at 1300, Until Sabrina 07/13/15 at 1440, Endoscopy (Day of Procedure) midazolam (PF) (VERSED) 1 mg/mL Given 07/13/2015 1:05 PM EDT 1 m g Right Arm multi-dose injection ONCE PRN, Starting on Sabrina 07/13/15 at 1250, Until Sabrina 07/13/15 at 1440, Intra-Operative (Intra-Procedure), Routine Given 07/13/2015 12:55 PM EDT 1 mg Righ t Arm Given 07/13/2015 12:50 PM EDT 1 mg Righ t Arm documented in this encounter Active and Recently Administered Medications Times are shown in EDT. Continuous Medication Order 07/11/2015 07/12/2015 07/13/2015 lactated ringers infusion (CANCELED) 1300 (New Bag - Provider: Danielle Hansen RN) 100 mL/hr, at 100 mL/hr, Intravenous, CO NTINUOUS, Starting Sabrina 07/13/15 at 1300, Until Sabrina 07/13/15 at 1440, Endo (Day of Procedure) PRN Medication Order 07/11/2015 07/12/2015 07/13/2015 fentaNYL 50 mcg/mL multi-dose injection (CANCELED) 1250 (Given - Provider: Derek Mathis RN - Comment: start moderate sedation)1255 (Given - Provider: Derek Mathis RN - Comment: sleepy but awake)1305 (Given - Provider: Derek Mathis RN - Comment: sleepy but awake) ONCE PRN, Starting Sabrina 10 at 1313, Until Sabrina 07/13/15 at 1440, Intra- Operative (Intra-Procedure), Routine 131 3 (Given - Provider: Derek Mathis RN - Comment: ohh...that feels crampy) midazolam (PF) (VERSED) 1 mg/mL multi-dose injection (CANCELED) 1250 (Given - Provider: Derek Mathis RN - Comment: see park same time)1255 (Given - Provider: Derek Mathis RN - Comment: see devinaymoshe same time)1305 (Given - Provider: Derek Mathis RN - Comment: see park same time) ONCE PRN, Starting Sabrina 07/13/15 at 1250, Until Sabrina 07/13/15 at 1440, Intra- Operative (Intra-Procedure), Routine documented in this encounter Care Teams Cougar Hunter Relationship Specialty Start Date End Date Claudia Perez APRN PCP - General 05/05/15 05/13/19 documented as of this encounter
--- OUTSIDE RECORDS SUMMARY | 2022-07-26 00:35 | XMS_ITS | Encounter Summary ---
:1955 Author Organization [facility] [place] [address] Care Team Providers Name Role Phone Kandis Morrell MD Primary Care Provider Encounter Details Date Type Department Care Team Description 12/04/2010 Hospital Encounter Gastroenterology at [facility] [place] [address] [place] [address] [facility] [place], [place] [address] Social History Tobacco Use Types Packs/Day Years Used Date Never Assessed Sex Assigned at Date Recorded Female 06/06/2021 6:48 PM EDT documented as of this encounter Medications at Time of Discharge Medication Sig Dispensed Refills Start Date End Date multivitamin (THERAGRAN) tablet 0 04/2011 Dfumvjlvmef-Acntsobgt-Cgl C-Mn 0 12/0412/23/2012 (GLUCOSAMINE COMPLEX) 500-400 mg Cap Calcium Carbonate-Vitamin D3 (CALCIUM 600 0 12/04/2010 07/15/2016 WITH VITAMIN D3) 600 mg(1,500mg) -400 unit Cap documented as of this encounter Plan of Treatment Not on filedocumented as of this encounter Procedures Procedure Name Priority Date/Time Associated Diagnosis Comme nts SURGICAL PATHOLOGY Routine 12/04/2010 12:20 PM Re sults for this REPORT EST procedure are i n the results section. documented in this encounter Results PATHOLOGY SURGICAL PATHOLOGY FINAL REPORT (12/04/2010 12:20 PM EST) [facility] gist Method Time Signature Surgical [facility] Pathology ? [facility] Report ? Provider: ?? LENNOX TO ?? Pt. Name: ?? SOPHIA HUGHES ? Acc #: ?[id number] ?Pt. MRN: ?[id number] ? Col Date: ?? 12/04/2010 ?/Sex: ? 1955,(55 ? years),Female ? Rec Date: ?? 12/04/2010 ?LOC: ?4T ? SURGICAL PATHOLOGY ? ---Pathologic Diagnosis--- ? Sigmoid colon, polyp: ?Mucosal prolapse polyp. ? CR-PX ? 12/06/10 ? VMS ? 12/06/10 Verified by: ? Vasquez Lerner MD ? Pathologist ? (Electronic Si gnature) [...] Sigmoid colon polyp, formalin . ? Qty/Size/Weight: ?Single, 0.3 x 0.2 x 0.2 cm. ? Tissue Description: ?? Soft, neves tissue. ? Sections/Processing: ??(T1) ??aje/SNS ? ---Clinical Information--- ? Specimen Submitted: ? A - Polyp, sigmoid colon ? Clinical History: ? Previous TVA removed 3 months ago, now removed small residual polyp ? Clinical Diagnosis: ? Tubular adenoma Specimen (Source) Anatomical Collection Method Collection Time Re ceived Time Location / / Volume Laterality 12/04/2010 12:20 PM EST Lennox To MD PATHOLOGY/CYTOLOGY ORDERABLE S Performing Organization Address City/State/[place] [address] [place] documented in this encounter Visit Diagnoses Not on filedocumented in this encounter Care Teams Shot Dropper Relationship Specialty Start Date End Date Kandis Morrell MD PCP - General 08/21/10 05/04/15 [address] [place] [address] documented as of this encounter
--- OUTSIDE RECORDS SUMMARY | 2022-07-26 00:35 | XMS_ITS | Encounter Summary ---
:1955 Author Organization [facility] [place] [address] Care Team Providers Name Role Phone Kandis Morrell MD Primary Care Provider Encounter Details Date Type Department Care Team Description 07/06/2013 Surgery Gastroenterology at [facility] Dakotah Clark FLEXIBLE SIGMOIDOSCOPY [facility] [place] [address] [facility] [phone] [facility]. [place], [place] [address] Social History Tobacco Use Types [...] Sign Reading Time Taken Comments Blood Pressure 127/95 07/06/2013 9:44 AM EDT Pulse 60 07/06/2013 9:44 AM EDT Temperature - - Respiratory Rate 18 07/06/2013 9:44 AM EDT Oxygen Saturation 100% 07/06/2013 9:44 AM EDT Inhaled Oxygen Concentration - - Weight - - Height - - Body Mass Index - - documented in this encounter Discharge Instructions Discharge InstructionsEleni Leslie RN - 07/06/2013 9:45 AM EDT Colonoscopy and polyp removal What [...] you need to be checked. [facility] [phone] 8a-5p Same Day Endo [phone] 7a-8p Otherwise contact [phone] and ask to speak to the healthcare business analyst collection manager Follow up care is a landon part of your treatment and safety. Be sure to make and go to all appointments, and call your doctor if you are having problems. Discharge instructions reviewed with patient who expresses understanding Patient InstructionsDakotah Clark MD - 07/06/2013 9:39 AM EDT Please see Recommendations in the [...] encounter H&P Notes Dakotah Clark MD - 07/06/2013 9:18 AM EDT Gastroenterology and Hepatology Pre-Procedure History and Physical Exam Procedure: flexible sigmoidoscopy Indication: tubulovillous adenoma of sigmoid colon There is no problem list on file for this patient. EXAM: HEENT: Airway examined, oropharynx clear LUNGS: Clear to auscultation HEART: Regular rate and rhythm, normal S1, S2 ABDOMEN: Normal bowel sounds, soft, non tender, non distended, A/P Proceed with the planned endoscopic procedure. Risks and benefits of the procedure explained to the patient. Consent signed. documented in this encounter Miscellaneous Notes Miscellaneous - Provider, Scanning - 07/06/2013 3:40 PM EDT documented in this encounter Plan of Treatment Not on filedocumented as of this encounter Procedures Procedure Name Priority Date/Time Associated Comments Diagnosis FLEXIBLE SIGMOIDOSCOPY 07/06/2013 9:20 AM 6 TRACIE H FOLLOW UP EDT tubulovillous adenoma partially hidden FLEXIBLE SIGMOIDOSCOPY Routine 07/06/2013 9:15 AM Results for this EDT procedure are i n the results section. documented in this encounter Results FLEXIBLE SIGMOIDOSCOPY (07/06/2013 9:15 AM EDT) Component Value Ref Test Analysis Performed At [facility] gist Range Method Time Signature FLEXIBLE [facility] PROVATION SIGMOIDOSCOPY Endoscopy Patient Name: Sophia Montes De Oca ? Procedure Date: 07/06/2013 9:15 AM ? Date of : 1955 ? Age: 57 ? Order #: [id number] ? Procedure: ? Flexible Sigmoidoscopy Indications: ? High risk colon cancer surveillance : ? Personal history of colonic p olyps Providers: ? Dakotah Clark MD, Joycelyn joseph, ? RN, Kandis Padilla, Park Naturalist Referring : ?Kandis Morrell MD Medicines: ? None Complications: [...] ion was ? excellent. ? Findings: ? At 22 cm, previous tattoo was identified. There was a ? small amount of sessile, villous appearing polyp ? behind the adjacent fold. With some difficulty ? getting scope in position, remaining polyp was ? removed with hot and cold snare. ? 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 Recommendation: ?- Repeat flexible sigmoidoscopy in 1 ? year for surveillance. ? Dakotah Clark MD 07/06/2013 9:50 AM This report has been signed electronically. Number of Addenda: 0 Note Initiated On: 07/06/2013 9:15 AM Specimen (Source) Anatomical Collection Method Collection Time Re ceived Time Location / / Volume Laterality 07/06/2013 9:15 AM EDT Kandis Morrell MD GENERAL SURGICAL ORDERABLES Performing Organization Address City/State/ZIP Code Phon e Number [employer] documented in this encounter Visit Diagnoses Not on filedocumented in this encounter Active and Recently Administered Medications Care Teams Freight Brake Operator Relationship Specialty Start Date End Date Kandis Morrell MD PCP - General 08/21/10 05/04/15 [address] [place] [address] documented as of this encounter
--- OUTSIDE RECORDS SUMMARY | 2022-07-26 00:35 | XMS_ITS | Encounter Summary ---
:1955 Author Organization [facility] [place] [address] Care Team Providers Name Role Phone Claudia Perez APRN Primary Care Provider Encounter Details Date Type Department Care Team Description 05/05/2015 Hospital Encounter Mammography at [facility], [facility] Claudia Wilburn APRN [address] [place] [address] [place] [address] Social History Tobacco Use Types Packs/Day [...] Diagnosis Comme nts MAMMO SCREENING CAD Routine 05/05/2015 8:41 AM Re sults for this BILATERAL EDT procedure are i n the results section. documented in this encounter Results Mammo Digital Bilateral Screening With Cad (05/05/2015 8:41 AM EDT) Anatomical Region Laterality Modality Breast Bilateral Mammography Specimen (Source) Anatomical Collection Method Collection Time Re ceived Time Location / / Volume Laterality 05/05/2015 8:41 AM EDT Narrative 05/08/2015 7:50 AM EDT Reason for Exam: Screening ?? Technique: Craniocaudal (CC) and Medio-l ateral Oblique (MLO) views of both breasts obtained with direct digital cap ture. In addition to routine 2-D imaging, this exam was also performed wi th 3-D Tomographic Imaging (MLO and CC). ?? The exam was evaluated by CAD [...] nded with the frequency dependent upon the patient's age and breast cancer risk factors. A letter has been sent to this patient b y the breast imaging center. ?? Procedure Note Talisha Mary MD - 05/08/2015Form atting of this note might be different from the original. Reason for Exam: Screening Technique: Craniocaudal (CC) and Medio-l ateral Oblique (MLO) views of both breasts obtained with direct digital cap ture. In addition to routine 2-D imaging, this exam was also performed wi th 3-D Tomographic Imaging (MLO and CC). The exam was evaluated by CAD version [...] nded with the frequency dependent upon the patient's age and breast cancer risk factors. A letter has been sent to this patient b y the breast imaging center. Claudia Perez APRN IMG MAMMO ORDERABLES documented in this encounter Visit Diagnoses Not on filedocumented in this encounter Care Teams Healthcare Corporate Account Director Relationship Specialty Start Date End Date Claudia Perez APRN PCP - General 05/05/15 05/13/19 documented as of this encounter
--- OUTSIDE RECORDS SUMMARY | 2022-07-26 00:35 | XMS_ITS | Encounter Summary ---
:1955 Author Organization [facility] [place] [address] Care Team Providers Name Role Phone Kandis Morrell MD Primary Care Provider Encounter Details Date Type Department Care Team Description 04/23/2013 Hospital Encounter Mammography at [facility], [facility] Kandis Cortes MD [address] [place] [address] [place] [address] Social History Tobacco Use Types Packs/Day [...] Diagnosis Comme nts MAMMO SCREENING CAD Routine 04/23/2013 8:20 AM Re sults for this BILATERAL EDT procedure are i n the results section. documented in this encounter Results Mammo digital bilateral Screening with CAD (04/23/2013 8:20 AM EDT) Anatomical Region Laterality Modality Breast Bilateral Mammography Specimen (Source) Anatomical Collection Method Collection Time Re ceived Time Location / / Volume Laterality 04/23/2013 8:20 AM EDT Narrative 04/24/2013 11:53 AM EDT Reason for Exam: Screening ?? Technique: Craniocaudal (CC) and Medio-l ateral Oblique (MLO) views of both breasts obtained with direct digital cap ture. The exam was evaluated by CAD version 8. 3.17. ?? Findings: ?? This is a negative mammogram (ACR Catego ry 1). ??There is a stable fibroglandular pattern without significa nt change from prior studies. There is no mammographic evidence of can cer. ??The breasts are of scattered density. ?? CONCLUSION: This is a NEGATIVE mammogram (ACR Catego ry 1). ?? Routine screening mammography is recomme nded with the frequency dependent upon the patient's age and breast cancer risk factors. A letter has been sent to this patient b y the breast imaging center. Procedure Note Shreya Wesley MD - 04/24/2013Formattin g of this note might be different from the original. Reason for Exam: Screening Technique: Craniocaudal (CC) and Medio-l ateral Oblique (MLO) views of both breasts obtained with direct digital cap ture. The exam was evaluated by CAD version 8. 3.17. Findings: This is a negative mammogram (ACR Catego ry 1). There is a stable fibroglandular pattern without significa nt change from prior studies. There is no mammographic evidence of can cer. The breasts are of scattered density. CONCLUSION: This is a NEGATIVE mammogram (ACR Catego ry 1). Routine screening mammography is recomme nded with the frequency dependent upon the patient's age and breast cancer risk factors. A letter has been sent to this patient b y the breast imaging [facility]. Kandis Morrell MD IMG MAMMO ORDERABLES documented in this encounter Visit Diagnoses Not on filedocumented in this encounter Care Teams Auto Former Machine Operator Relationship Specialty Start Date End Date Kandis Morrell MD PCP - General 08/21/10 05/04/15 [address] [place] [address] documented as of this encounter
--- OUTSIDE RECORDS SUMMARY | 2022-07-26 00:35 | XMS_ITS | Encounter Summary ---
:1955 Author Organization [facility] [place] [address] Care Team Providers Name Role Phone Kandis Morrell MD Primary Care Provider Encounter Details Date Type Department Care Team Description 12/23/2012 Hospital Encounter Gastroenterology at [facility] [place] To [facility] [place] [address] [place] [address] [facility] [place], [place] [address] Social History Tobacco Use Types [...] Sign Reading Time Taken Comments Blood Pressure 147/71 12/23/2012 1:34 PM EDT Pulse 65 12/23/2012 1:34 PM EDT Temperature 36.6 ??C (97.9 ??F) 12/23/2012 12:10 PM EDT Respiratory Rate 16 12/23/2012 1:34 PM EDT Oxygen Saturation 100% 12/23/2012 1:34 PM EDT Inhaled Oxygen Concentration - - Weight 76.7 kg (169 lb) 12/23/2012 12:10 PM EDT Height - - Body Mass Index - - documented in this encounter Discharge Instructions Patient InstructionsLennox To MD - 12/23/2012 1:27 PM EDT Please see Recommendations in the Provation procedure report which is documented in the procedural note in E-DH. AttachmentsThe following attachments cannot be sent through Care Everywhere. COLONOSCOPY: WHAT TO EXPECT AT HOME (YI)documented in this encounter Medications at Time of Discharge Medication Sig Dispensed Refills Start Date End Date multivitamin (THERAGRAN) tablet 0 04/2011 Calcium Carbonate-Vitamin D3 (CALCIUM 600 0 12/04/2010 07/15/2016 WITH VITAMIN D3) 600 mg(1,500mg) -400 unit Cap documented as of this encounter H&P Notes Lennox To MD - 12/23/2012 12:30 PM EDT Gastroenterology and Hepatology Pre-Procedure History and Physical Exam Procedure:flexible sigmoidoscopy Indication: polyp surveillance There is no problem list on file [...] Miscellaneous Notes Miscellaneous - Provider, Scanning - 12/23/2012 10:28 PM EDT Miscellaneous - Provider, Scanning - 12/23/2012 11:57 AM EDT documented in this encounter Plan of Treatment Not on filedocumented as of this encounter Procedures Procedure Name Priority Date/Time Associated Comments Diagnosis SURGICAL PATHOLOGY Routine 12/23/2012 3:47 PM Res ults for this REPORT EDT procedure are i n the results section. SPECIMEN TO PATHOLOGY Routine 12/23/2012 1:35 PM Results for this EDT procedure are i n the results section. SIGMOIDOSCOPY, 12/23/2012 1:04 PM 1 YR FOLLOW UP FLEXIBLE; WITH BIOPSY, EDT Flexi SINGLE OR MULTIPLE (WRVU 1.14) FLEXIBLE SIGMOIDOSCOPY 12/23/2012 1:04 PM 1 YR FOLLOW UP EDT Flexi FLEXIBLE SIGMOIDOSCOPY Routine 12/23/2012 12:54 R esults for this PM EDT procedure are i n the results section. documented in this encounter Results Surgical Pathology Report (12/23/2012 3:47 PM EDT) Component Value Ref Test Analysis Performed At [facility] Range Method Time Signature Surgical CERNER Pathology ? [facility] Report ? Provider: ?? LENNOX TO ?? Pt. Name: ?? SOPHIA MONTES DE OCA ? Acc #: ?[id number] ?Pt. MRN: ?[id number] ? Col Date: ?? 12/23/2012 ? /Sex: ?1 10/19/1954,(57 ? years),Female ? Rec Date: ?? 12/23/2012 ? LOC: ?4T ? SURGICAL PATHOLOGY ? ---Pathologic Diagnosis--- ? Rectosigmoid colon, polypectomy: ?Tubulovillous adenoma. ? CR-0, CR-PX ? 12/26/12 ? BJM ? 12/26/12 Verified by: ? Primo Pisano MD ? [...] . ? ---Gross Description--- ? Labeled/Fixative: ? Rectosigmoid colon polyp, for obdulia. ? Qty/Size/Weight: ?Single, 0.5 x 0.4 x 0.3 cm. ? Tissue Description: ?? [place], villous polyp. ? Sections/Processing: ??Inked black at the base and bisected. ??(T1) ??aje/SNS ? ---Clinical Information--- ? Specimen Submitted: ? A - Rectosigmoid colon polyp ? Clinical History: ? Recurrent tubulovillous adenoma of rectosigmoid colon ? Clinical Diagnosis: ? Same Specimen (Source) Anatomical Collection Method Collection Time Re ceived Time Location / / Volume Laterality 12/23/2012 3:47 PM EDT Lennox To MD PATHOLOGY/CYTOLOGY ORDERABLE S Performing Organization Address City/State/[place] [address] DURAN HERNANDEZ Specimen to Pathology (surgical or derm) (12/23/2012 1:35 PM EDT) Specimen Anatomical Collection Method Collection Time Receive d Time (Source) Location / / Volume Laterality AP Specimen 12/23/2012 1:35 PM 3 1:34 EDT PM EDT Narrative UDRAN HERNANDEZ - 12/23/2012 1:35 PM E DT Specimen requisition ordered. ??Separate Pathology report to follow Lennox To MD PATHOLOGY/CYTOLOGY ORDERABLE S Performing Organization Address City/[facility]/[place] [address] [facility] F[facility] SIGMOIDOSCOPY (12/23/2012 12:54 PM EDT) Component Value Ref Test Analysis Performed At [facility] Method Time Signature FLEXIBLE [facility] PROVATION SIGMOIDOSCOPY Endoscopy Patient Name: Sophia Montes De Oca ? Procedure Date: 12/23/2012 12:54 PM ? [facility]: [id number] ? Date of : 1955 ? Age: 57 ? Order #: [id number] ? Procedure: ? Flexible Sigmoidoscopy Indications: ? High risk colon cancer surveillance : ? Personal history of colonic p olyps Providers: ? Lennox To MD, Joycelyn joseph, ? RN, Marian Jose, Charly hnician Referring MD: ?Kandis Morrell MD Medicines: ? None Complications: ? No immediate complications. Procedure: ? Pre-Anesthesia Assessment: ? - ASA Grade Assessment: I - A normal, ? healthy patient. ? - The risks and benefits of [...] 22 cm, previous tattoo was seen and adjacent to ? this, behind a haustral fold was a small sessile, ? villous looking polyp (site of previous known polyp). ? This was removed in piecemeal fashion with hot and ? cold snare. At completion of procedure, no visible ? polyp remained. ? Impression: ?Recurrent TVA. Recommendation: ?- Await pathology results. ? Lennox To MD 12/23/2012 1:38 PM This report has been signed electronically. Number of Addenda: 0 Note Initiated On: 12/23/2012 12:54 PM Specimen (Source) Anatomical Collection Method Collection Time Re ceived Time Location / / Volume Laterality 12/23/2012 12:54 PM EDT Kandis Morrell MD GENERAL SURGICAL ORDERABLES Performing Organization Address City/State/ZIP Code Phon e Number PROVATION documented in this encounter Visit Diagnoses Not on filedocumented in this encounter Administered Medications Inactive Administered Medications - up to 3 most recent administrations Medication Order MAR Action Action Date Dose Rate Site sodium chloride 0.9% New Bag 12/23/2012 12:25 PM EDT 50 mL/hr 50 mL/hr infusion 50 mL/hr, Intravenous, CONTINUOUS, Starting on Fri12/23/12 at 1230, Until Fri12/23/12 at 1858, Endoscopy (Day of Procedure) documented in this encounter Active and Recently Administered Medications Times are shown in EDT. Continuous Medication Order 12/21/2012 12/22/2012 12/23/2012 sodium chloride 0.9% infusion (CANCELED) 1225 (New Bag - Provider: Helga Cruz RN) 50 mL/hr, at 50 mL/hr, Intravenous, CONT INUOUS, Starting Fri12/23/12 at 1230, Until Fri12/23/12 at 1858, Endo (Day of Procedure) documented in this encounter Care Teams Delinquency Prevention Social Worker Relationship Specialty Start Date End Date Kandis Morrell MD PCP - General 08/21/10 05/04/15 [address] [place] [address] documented as of this encounter
--- OUTSIDE RECORDS SUMMARY | 2022-07-26 00:35 | XMS_ITS | Encounter Summary ---
:1955 Author Organization [facility] [place] [address] Care Team Providers Name Role Phone Kandis Morrell MD Primary Care Provider Encounter Details Date Type Department Care Team Description 07/12/2014 Surgery Gastroenterology at [facility] [place] To FLEXIBLE SIGMOIDOSCOPY [facility] [place] [address] [facility] [phone] [facility] [place], [place] [address] Social History Tobacco Use Types [...] you need to be checked. [facility] [phone] 8a-5p Same Day Endo [phone] 7a-8p Otherwise contact [phone] and ask to speak to the towel weaver stone repairer Follow up care is a landon part of your treatment and safety. Be sure to make and go to all appointments, and call your doctor if you are having problems. Discharge instructions reviewed with patient who expresses understanding AttachmentsThe following attachments cannot be sent through Care Everywhere. POLYPS (PERUVIAN)documented in this encounter Medications at Time of [...] Component Value Ref Test Analysis Performed At [facility] Method Time Signature Surgical CERNER Pathology ? [facility] Report ? Provider: ?? LENNOX TO ?? Pt. Name: ?? SOPHIA MONTES DE OCA ? Acc #: ?[id number] ?Pt. MRN: ?[id number] ? Col Date: ?? 07/12/2014 ?/Sex: ?1 [...] Organization Address City/State/[place] [address] [facility] Specimen to Pathology (surgical or derm) [...] Organization Address City/State/[place] [address] DURAN HERNANDEZ FLEXIBLE SIGMOIDOSCOPY (07/12/2014 9:17 AM EDT) Component Value Ref Test Analysis Performed At [facility] Range Method Time Signature FLEXIBLE [facility] PROVATION SIGMOIDOSCOPY Endoscopy Patient Name: Sophia Montes De Oca ? Procedure Date: 07/12/2014 9:17 AM ? Date of : 1955 ? Age: 58 ? Order #: [id number] ? Procedure: ? Flexible Sigmoidoscopy Indications: ? residual TVA at 22 cm. Providers: ? Lennox To MD, Chaya Fallon , ? RN, Donovan Lopez L. ? Andrea, Squadron Worker Referring : ?Kandis Morrell MD Medicines: ? [...] on filedocumented in this encounter Care Teams Credit Manager Relationship Specialty Start Date End Date Kandis Morrell MD PCP - General 08/21/10 05/04/15 [address] [place] [address] documented as of this encounter
--- OUTSIDE RECORDS SUMMARY | 2022-07-26 00:35 | XMS_ITS | Encounter Summary ---
:1955 Author Organization [facility] [place] [address] Care Team Providers Name Role Phone Kandis Morrell MD Primary Care Provider Encounter Details Date Type Department Care Team Description 12/04/2010 Procedure visit Gastroenterology at [facility] Dakotah Clark, [facility] [place] [address] [facility] [phone] GASTROENTEROLOGY DEPT. [place], [place] [address] Social History Tobacco Use Types Packs/Day Years Used Date Never Assessed Sex Assigned at Date Recorded Female 06/06/2021 6:48 PM EDT documented as of this encounter Plan of Treatment Not on filedocumented as of this encounter Visit Diagnoses Not on filedocumented in this encounter Care Teams Movie Actor Relationship Specialty Start Date End Date Kandis Morrell MD PCP - General 08/21/10 05/04/15 [address] [place] [address] documented as of this encounter
--- OUTSIDE RECORDS SUMMARY | 2022-07-26 00:35 | XMS_ITS | Encounter Summary ---
:1955 Author Organization [facility] [place] [address] Care Team Providers Name Role Phone Kandis Morrell MD Primary Care Provider Encounter Details Date Type Department Care Team Description 12/23/2012 Surgery Gastroenterology at [facility] [place] To FLEXIBLE SIGMOIDOSCOPY [facility] [place] [address] [facility] [phone] [facility] [place], [place] [address] Social History Tobacco Use Types [...] Everywhere. COLONOSCOPY: WHAT TO EXPECT AT HOME (ARABIC)documented in this encounter Medications at Time of [...] Component Value Ref Test Analysis Performed At [facility] Range Method Time Signature Surgical CERNER Pathology ? [facility] Report ? Provider: ?? LENNOX TO ?? Pt. Name: ?? SOPHIA MONTES DE OCA ? Acc #: ?[id number] ?Pt. MRN: ?[id number] ? Col Date: ?? 12/23/2012 ? /Sex: [...] x 0.3 cm. ? Tissue Description: ?? [place], villous polyp. ? Sections/Processing: ??Inked black at [...] Organization Address City/State/[place] [address] DURAN HERNANDEZ Specimen to Pathology (surgical or derm) (12/23/2012 1:35 PM EDT) Specimen Anatomical Collection Method Collection Time Receive d Time (Source) Location / / Volume Laterality AP Specimen 12/23/2012 1:35 PM 3 1:34 EDT PM EDT Narrative DURAN HERNANDEZ - 12/23/2012 1:35 PM E DT Specimen requisition ordered. ??Separate Pathology report to follow Lennox To MD PATHOLOGY/CYTOLOGY ORDERABLE S Performing Organization Address [facility]/[place] [address] [facility] FLEXIBLE SIGMOIDOSCOPY (12/23/2012 12:54 PM EDT) Component Value Ref Test Analysis Performed At [facility] Range Method Time Signature FLEXIBLE [facility] PROVATION SIGMOIDOSCOPY Endoscopy Patient Name: Sophia Montes De Oca ? Procedure Date: 12/23/2012 12:54 PM ? N: [id number] ? Date of : 1955 ? Age: 57 ? Order #: [id number] ? Procedure: ? Flexible Sigmoidoscopy Indications: ? [...] Recommendation: ?- Await pathology results. ? Lennox oT MD 12/23/2012 1:38 PM This report has [...] (CANCELED) 1225 (New Bag - Provider: Helga rCuz RN) 50 mL/hr, at 50 mL/hr, Intravenous, CONT INUOUS, Starting Fri12/23/12 at 1230, Until Fri12/23/12 at 1858, Endo (Day of Procedure) documented in this encounter Care Teams Color Making Supervisor Relationship Specialty Start Date End Date Kandis Morrell MD PCP - General 08/21/10 05/04/15 [address] [place] [address] documented as of this encounter
--- OUTSIDE RECORDS SUMMARY | 2022-07-26 00:35 | XMS_ITS | Encounter Summary ---
:1955 Author Organization [facility] [place] [address] Care Team Providers Name Role Phone Kandis Morrell MD Primary Care Provider Encounter Details Date Type Department Care Team Description 12/23/2011 Hospital Encounter Gastroenterology at [facility] [place] To [facility] [place] [address] [place] [address] [facility] [place], [place] [address] Social History Tobacco Use Types [...] Sign Reading Time Taken Comments Blood Pressure 126/66 12/23/2011 3:45 PM EDT Pulse 64 12/23/2011 3:45 PM EDT Temperature 36.7 ??C (98.1 ??F) 12/23/2011 2:58 PM EDT Respiratory Rate 14 12/23/2011 3:45 PM EDT Oxygen Saturation 99% 12/23/2011 3:45 PM EDT Inhaled Oxygen Concentration - - [...] occurs please contact your M.D. Please call [phone] before 5 pm with problems, questions or concerns. After 5pm call [phone] and ask to speak with the finance accounting internship software application tester. Discharge instructions reviewed with patientwho expresses understanding. Patient InstructionsLennox To MD - 12/23/2011 4:30 PM EDT Please see Recommendations in the Provation procedure report which is documented in the procedural note in E-DH. AttachmentsThe following attachments cannot be sent through Care Everywhere. COLONOSCOPY: WHAT TO EXPECT AT HOME (CHINESE)documented in this encounter Medications at Time of Discharge Medication Sig Dispensed Refills Start Date End Date multivitamin (THERAGRAN) tablet 0 04/2011 Uvsxvncklts-Gtaxbfkko-Fcs C-Mn 0 12/0412/23/2012 (GLUCOSAMINE COMPLEX) 500-400 mg Cap Calcium Carbonate-Vitamin D3 (CALCIUM 600 0 12/04/2010 07/15/2016 WITH VITAMIN D3) 600 mg(1,500mg) -400 unit Cap documented as of this encounter Miscellaneous Notes Miscellaneous - ProviderDonna - 12/24/2011 5:57 AM EDT Miscellaneous - Provider, Donna - 12/23/2011 3:42 PM EDT documented in [...] SURGICAL PATHOLOGY REPORT (12/23/2011 6:08 PM EDT) [facility] gist Method Time Signature Surgical CERNER Pathology ? [facility] Report ? Provider: ?? LENNOX TO ?? Pt. Name: ?? SOPHIA MONTES DE OCA ? Acc #: ?[id number] ?Pt. MRN: ?[id number] ? Col Date: ?? 12/23/2011 ? /Sex: [...] Organization Address City/State/[place] [address] DURAN BELLOIUM Specimen to Pathology (surgical or derm) (12/23/2011 4:07 PM EDT) Specimen Anatomical Collection Method Collection Time Receive d Time (Source) Location / / Volume Laterality AP Specimen 12/23/2011 4:07 PM 2 4:07 EDT PM EDT Narrative LEIFNER MILLENNIUM - 12/23/2011 4:07 PM E DT Specimen requisition ordered. ??Separate Pathology report to follow Lennox To MD PATHOLOGY/CYTOLOGY ORDERABLE S Performing Organization Address City/State/ZIP Code Phon e Number [facility] [place] [address] [facility] COLONOS[facility] (12/23/2011 3:14 PM EDT) [facility] Method Time Signature COLONOSCOPY [facility] PROVATION Endoscopy Patient Name: Sophia Montes De Oca ? Procedure Date: 12/23/2011 3:14 PM ? N: [id number] ? Date of : 1955 ? Age: 56 ? Order #: [id number] ? Procedure: ? Colonoscopy Indications: ? Screening for colorectal malignant ? neoplasm, High risk colon can cer ? surveillance: Personal histor y of ? colonic polyps Providers: ? Lennox To MD, Marvin Gonzalez , ? RN, Jeannette Mena, Demand Manager Referring MD: ?Kandis Morrell MD Medicines: [...] . The ? colonoscopy was performed wit hout ? [...] injection (CANCELED) 1522 (Given - Provider: Marvin Gonzalez, RN)1526 (Given - Provider: Marvin Gonzalez RN - Comment: facial grimace with eyes open) ONCE PRN, Starting 12/23/11 at 1522, Until 12/23/11 at 1914, Pain, Intra- Operative (Intra-Procedure), Routine midazolam (VERSED) injection (CANCELED) 1522 (Given - Provider: Marvin Gnozalez, RN)1526 (Given - Provider: Marvin Gonzalez RN - Comment: facial grimace with eyes open) ONCE PRN, Starting 12/23/11 at 1522, Until 12/23/11 at 1914, Sleep, Intra- Operative (Intra-Procedure), Routine documented in this encounter Care Teams Mixer Helper Relationship Specialty Start Date End Date Knadis Morrell MD PCP - General 08/21/10 05/04/15 [address] [place] [address] documented as of this encounter
--- OUTSIDE RECORDS SUMMARY | 2022-07-26 00:35 | XMS_ITS | Encounter Summary ---
:1955 Author Organization [facility] Address [facility] [place] [address] Care Team Providers Name Role Phone Claudia Perez APRN Primary Care Provider Encounter Details Date Type Department Care Team Description 05/24/2016 Hospital Encounter Mammography at [facility] Claudia Perez Encounter for [facility] [place] Benjamin screening mammogram Drive [address] for breast cancer [facility] [address] [place], [place] [phone] [address] Social History Tobacco Use Types Packs/Day Years [...] Date End Date multivitamin (THERAGRAN) tablet 0 03/0 04/2011 Calcium Carbonate-Vitamin D3 (CALCIUM 600 0 12/04/2010 07/15/2016 WITH VITAMIN D3) 600 mg(1,500mg) -400 unit Cap documented as of this encounter Plan of Treatment Not on filedocumented as of this encounter Procedures Procedure Name Priority Date/Time Associated Diagnosis Comme nts MAMMO SCREENING CAD Routine 05/24/2016 8:56 AM Encounter for R esults for this AND GEOFFREY BILATERAL EDT screening mammogram pr ocedure are in for breast cancer the result s section. documented in this encounter Results Mammo Digital Bilateral Screening With CAD and Tomosynthesis (05/24/2016 8:56 AM EDT) Anatomical Region Laterality Modality Breast Bilateral Mammography Specimen (Source) Anatomical Location Collection Method / Collectio n Time Received Time / Laterality Volume Narrative 05/24/2016 11:34 AM EDT BILATERAL MAMMOGRAPHY REASON FOR EXAM: [...] No mammographic evidence of malignancy. RECOMMENDATION: The [employer] and The Society of [...] cancer documented in this encounter Care Teams Drywall Installer Relationship Specialty Start Date End Date Claudia Perez APRN PCP - General 05/05/15 05/13/19 documented as of this encounter
--- NOTE | 2022-07-26 14:36 | DI.DEXA_ITS ---
Exam(s) XR DEXA BONE DENSITY W/WO KARY EXAM: XR DEXA BONE DENSITY W/WO KARY CLINICAL HISTORY: f/u 2019 BONE DENSITY, SCREENING FOR OSTEROPOROSIS IN POSTMENOPAUSAL WOMAN, TECHNIQUE: COMPARISON: No exams were available for comparison FINDINGS: Lateral Spine Image: Unremarkable. No compression deformities identified. Left hip: Total T-Score: -2.3 Total Z-Score: -0.8 T- and Z-scores: This is consistent with osteopenia. There is osteoporosis in the femoral neck with a T-score of -2.5. Lumbar Spine: Total T-Score: -0.1 Total Z-Score: 1.9 T- and Z-scores: Within normal limits. IMPRESSION: Osteoporosis in the left femoral neck.
== END ==
PROVIDERS: PCP Family Medicine; Visit Provider Family Medicine
DX: M81.0 Age-related osteoporosis without current pathological fracture (principal); Z78.0 Asymptomatic menopausal state; Z13.820 Encounter for screening for osteoporosis
CPT/HCPCS: 77080

== ENCOUNTER 2023-05-29 03:39 | Outpatient (CLI) | payer MEDICARE, MEDICAID, SELFPAY ==
[2023-05-29 14:49] LABS: Vitamin D 25 Total 49.2 ng/mL (30-100)
[2023-05-29 17:41] LABS: PHOSPHORUS 3.4 mg/dL (2.6-4.7); TSH (W/Ref FT4) 1.14 uIU/mL (0.36-3.74)
[2023-05-29 22:39] LABS: Parathyroid Hormone,Intact 51 pg/mL (19-88)
[2023-05-30 09:28] LABS: Magnesium Random Urine 4.5 mg/dL (See Note)
[2023-05-30 09:38] LABS: Calcium (Random Urine) 21.1 mg/dL (See Note)
== END 2023-05-29 03:40 | disposition home or self-care (01) ==
LOC: LBO 03:39
PROVIDERS: PCP Family Medicine; Visit Provider Family Medicine
DX: M81.0 Age-related osteoporosis without current pathological fracture (principal); N18.9 Chronic kidney disease, unspecified; E78.5 Hyperlipidemia, unspecified
CPT/HCPCS: 36415; 82306; 83735; 82340; 83970; 84100; 84443

== ENCOUNTER → 2023-07-22 07:25 | Outpatient (CLI) | payer MEDICARE, MEDICAID, SELFPAY ==
--- NOTE | 2023-07-22 08:30 | DI.RAD_ITS ---
Exam(s) XR HIP PELVIS ADULT BL EXAM: XR HIP PELVIS ADULT BL CLINICAL HISTORY: bilat bursitis and sacral pain,BACK PAIN,M54.50,M70.62,M70.61. TECHNIQUE: 2D digital imaging was performed. Three views. COMPARISON: No exams were available for comparison FINDINGS: BONES: No acute fracture is present. No bony destructive lesion is seen. JOINTS: No dislocation present. Hip joint spaces are maintained. No significant acetabular spurrin g. Minimal degenerative changes of the SI joints and pubic symphysis. SOFT TISSUE: Normal. IMPRESSION: Minimal degenerative changes. DATA REPOSITORY: RADIATION DOSE DELIVERED:
--- NOTE | 2023-07-22 08:30 | DI.RAD_ITS ---
Exam(s) XR LUMBAR SPINE COMPLETE EXAM: XR LUMBAR SPINE COMPLETE CLINICAL HISTORY: bilat hip and sacral pain,,TROCHANTERIC BURSITIS,M70.62,M70.61. TECHNIQUE: 2D digital imaging was performed. Five views. COMPARISON: CR XR DEXA BONE DENSITY W/WO KARY from 07/26/2022 FINDINGS: BONES: No fracture or destructive lesion. Vertebral body heights are maintained. Severe facet degene rative changes throughout. DISKS: Moderate narrowing of the L 2 3 disc space posteriorly. Mild narrowing of the L3-4 disc space . Mild narrowing of the L4-5 disc space anteriorly. Severe disc space narrowing at L5-S1 with endpl ate osteophytes projecting anteriorly. ALIGNMENT: Mild retrolisthesis at L3-4 and L4-5 secondary to prominent degenerative changes of the fa cet joints. SOFT TISSUE: Normal. IMPRESSION: Degenerative disc changes greatest at L5-S1. Prominent facet degenerative changes, greatest at L3-4 and L4-5 causing mild spondylolisthesis. DATA REPOSITORY: RADIATION DOSE DELIVERED:
== END ==
PROVIDERS: PCP Family Medicine; Visit Provider Family Medicine
DX: M43.16 Spondylolisthesis, lumbar region (principal); M70.61 Trochanteric bursitis, right hip; M70.62 Trochanteric bursitis, left hip
CPT/HCPCS: 73521; 72110

== ENCOUNTER 2023-12-07 11:16 | Emergency (ER) | payer MEDICARE, MEDICAID, SELFPAY ==
[2023-12-07] VITALS (23 sets, daily range): BP systolic 148–219; BP diastolic 53–87; PULSE 68–85; RESP 12–24; TEMP 36.7; O2SAT 97–100
--- NOTE | 2023-12-07 11:15 | RT.EKG_ITS ---
APPROVED REPORT Exam: Resting ECG Reason for Exam: Chest Pain Patient Location: E HR:75 bpm ECG Measurements Heart Rate 75 AXIS AZ 154 P 78 QRSd 93 QRS -31 QT 363 T 48 QTc 405 Conclusion Sinus rhythm...normal P axis, V-rate 60- 99 Left axis deviation...QRS axis (-30,-90) sinus rhythm, left axis, normal intervals, non ischemic
[2023-12-07 11:34] LABS: Abs Immature Grans 0.02 10^3/uL (0.0-0.06); Absolute Basophil Count 0.02 10^3/uL (0.0-0.2); Absolute Eosinophil Count 0.04 10^3/uL (0.0-0.7); Absolute Lymphocyte Count 1.83 10^3/uL (1.2-3.4); Absolute Monocyte Count 0.35 10^3/uL (0.1-0.8); Absolute Neutrophil Count 3.27 10^3/uL (1.2-6.7); Basophils % 0.4; Eosinophils % 0.7; HCT 42.5 % (36.0-46.0); HGB 14.2 g/dL (11.2-15.7); Immature Grans % 0.4; Lymphocytes % 33.1; MCH 30.5 pg (27.0-33.0); MCHC 33.4 % (32.0-36.0); MCV 91 fL (80-95); MPV 9.4 fL (8.0-11.0); Monocytes % 6.3; Neutrophils % 59.1; Platelet Count 274 10^3/uL (130-400); RBC 4.65 10^6/uL (3.93-5.22); RDW 13.2 % (11.7-14.6); RDW-SD 45.1 fL; WBC 5.53 10^3/uL (4.4-10.8)
[2023-12-07 11:51] LABS: ALT 25 U/L (14-59); AST 20 U/L (15-37); Albumin 3.8 g/dL (3.4-5.0); Alkaline Phosphatase 69 U/L (46-116); BUN 9 mg/dL (7-18); Bilirubin, Total 0.5 mg/dL (0.2-1.0); CREATININE 0.8 mg/dL (0.55-1.02); Calcium 10.6 mg/dL (8.5-10.1); Chloride 102 mmol/L (98-107); Estimated GFR 79.22 (mL/min/1.73m2); Glucose 102 mg/dL (74-106); Magnesium 1.8 mg/dL (1.8-2.4); Potassium 3.7 mmol/L (3.5-5.1); Sodium 139 mmol/L (136-145); Total Protein 7.6 g/dL (6.4-8.2); Troponin I < 50 ng/L (< or =60)
--- NOTE | 2023-12-07 12:15 | DI.CT_ITS ---
Exam(s) CT CHEST PE CTA EXAM: CT CHEST PE CTA CLINICAL HISTORY: chest pain, shortness of breath. TECHNIQUE: Imaging Protocol: Axial CT angiography was performed with multi-slice acquisition and mu lti-planar and/or 3D reconstructions. CONTRAST MATERIAL: Intravenous: Omnipaque 350 contrast volume:100 mL COMPARISON: No previous for comparison. FINDINGS: Tracheobronchial tree: Patent where visualized. Pulmonary parenchyma: No consolidation or dominant measurable mass. No architectural distortion. Ther e are dependent atelectatic changes present. No right middle lobe pulmonary nodule is identified. Pulmonary Arteries: No evidence of filling defect to suggest pulmonary emboli. Mediastinum and Ila: No dominant adenopathy or fluid collection. The esophagus is unremarkable. Visualized thyroid gland: Unremarkable. Pleura: No effusion or pneumothorax. Heart: The heart is not dilated. No coronary artery calcifications are seen. No pericardial effusion. Aorta: Thoracic aorta non-dilated. No evidence of dissection. Atherosclerotic calcification is presen t. Upper abdomen: Unremarkable. Soft tissues: Unremarkable. Bones: Within normal limits for the patient's age. IMPRESSION: 1. No evidence of pulmonary embolism, thoracic aortic dissection or aneurysm. 2. No acute pulmonary process. RADIATION DOSE DELIVERED: Total DLP DATA REPOSITORY: All CT scans at this facility are submitted to the National Radiology Data Registry (NRDR) Dose Index Registry (DIR) with the [employer] (ACR). RADIATION OPTIMIZATION: All CT scans at this facility use at least one of these dose optimization te chniques: automated exposure control; mA and/or kV adjustment per patient size (includes targeted exa ms where dose is matched to clinical indication); or iterative reconstruction.
--- NOTE | 2023-12-07 12:15 | DI.CT_ITS ---
Exam(s) CT BRAIN NECK CTA EXAM: CT BRAIN NECK CTA CLINICAL HISTORY: dizziness and numbness. TECHNIQUE: Imaging Protocol: Axial CT angiography was performed with multi-slice acquisition and mu lti-planar and/or 3D reconstructions. CONTRAST MATERIAL: Intravenous: Omnipaque 350 contrast volume:85 mL COMPARISON: CT CT BRAIN NECK CTA from 08/16/2021 FINDINGS: CT Head W/O and W: Ventricles and Extra axial spaces: Normal in size and morphology for the patient's age. Hemorrhage: None. Cerebral parenchyma: No evidence of an acute territorial infarct. No mass effect is identified. Midline shift: None. Brainstem/Cerebellum: Normal. Calvarium: Normal. Visualized Paranasal sinuses/Mastoids: Clear. Soft Tissues: Unremarkable. Enhancement: Unremarkable. CTA Neck W: Common Carotid: Right: No dissection, occlusion or significant stenosis. Mild atherosclerosis distally without signi ficant stenosis. Left: No dissection, occlusion or significant stenosis. Mild atherosclerotic calcification distally without evidence of significant stenosis. External Carotid: Right: No occlusion or significant stenosis. Left: No occlusion or significant stenosis. Internal Carotid: Right: No dissection, occlusion or significant stenosis. Left: No dissection, occlusion or significant stenosis. Vertebral Artery: Right: No dissection, occlusion or significant stenosis. There is a non dominant right vertebral art marce. Left: No dissection, occlusion or significant stenosis. There is a dominant left vertebral artery. Lung Apices: Normal. Bones: Within normal limits for the patient's age. Degenerative changes seen in the cervical and uppe r thoracic spine. Soft Tissues: Normal. Thyroid gland: Unremarkable. CTA Brain W: Internal Carotid Arteries: There is atherosclerosis present in the internal carotid arteries. No sig nificant stenosis is seen. No occlusion or aneurysm is present. Anterior Cerebral Arteries: Right: No aneurysm, occlusion or significant stenosis. Left: No aneurysm, occlusion or significant stenosis. Middle Cerebral Arteries: Right: No aneurysm, occlusion or significant stenosis. Left: No aneurysm, occlusion or significant stenosis. Posterior Cerebral Arteries: Both posterior cerebral arteries are fed via the posterior communicating arteries which is a normal variant. Right: No aneurysm, occlusion or significant stenosis. Left: No aneurysm, occlusion or significant stenosis. Vertebral Arteries: Right: No aneurysm, occlusion or significant stenosis. Hypoplastic right vertebral artery which term inates at the PICA. This is a normal variant. Left: No aneurysm, occlusion or significant stenosis. Basilar Artery: No aneurysm, occlusion or significant stenosis. IMPRESSION: 1. No large vessel occlusion or significant stenosis on the CT angiography of the head. 2. No acute intracranial process. 3. No occlusion or significant stenosis on the CT angiography of the neck. RADIATION DOSE DELIVERED: Total DLP DATA REPOSITORY: All CT scans at this facility are submitted to the National Radiology Data Registry (NRDR) Dose Index Registry (DIR) with the [employer] (ACR). RADIATION OPTIMIZATION: All CT scans at this facility use at least one of these dose optimization te chniques: automated exposure control; mA and/or kV adjustment per patient size (includes targeted exa ms where dose is matched to clinical indication); or iterative reconstruction.
[2023-12-07] MEDS: ACETAMINOPHEN 1,000 MG/100 ML BTL 400 MG IVPB (12:30)
[2023-12-07] MEDS: Normal Saline - Diluent 50 ML VIAL IJ ×2 (12:40→12:43)
[2023-12-07] MEDS: Omnipaque 350 MG/ML 100 ML BTL IJ ×2 (12:41→12:44)
[2023-12-07] MEDS: Normal Saline Flush 10 ML SYR IVP (12:43)
[2023-12-07 12:52] LABS: NT-proBNP 110 pg/mL (<300)
--- NOTE | 2023-12-07 13:21 | DI.VRAD_ITS ---
PROCEDURE INFORMATION: Exam: CTA Head With Contrast, Arteriography Exam date and time: 12/07/2023 12:47 PM Age: 68 years old Clinical indication: Other: Dizziness, and numbness TECHNIQUE: Imaging protocol: Computed tomographic angiography of the head with contrast. Exam focused on the arteries. 3D rendering (Not supervised by radiologist): MIP and/or 3D reconstructed images were created by the technologist. Contrast material: OMNI 350; Contrast volume: 85 ml; Contrast route: INTRAVENOUS (IV); COMPARISON: CT BRAIN NECK CTA 08/16/2021 11:10 AM FINDINGS: ANTERIOR CIRCULATION: Right internal carotid artery: Intracranial segment is patent with no significant stenosis. No aneurysm. Right middle cerebral artery: No occlusion or significant stenosis. No aneurysm. Right anterior cerebral artery: No occlusion or significant stenosis. No aneurysm. Left internal carotid artery: Intracranial segment is patent with no significant stenosis. No aneurysm. Left middle cerebral artery: No occlusion or significant stenosis. No aneurysm. Left anterior cerebral artery: No occlusion or significant stenosis. No aneurysm. POSTERIOR CIRCULATION: Right vertebral artery: No occlusion or significant stenosis. No aneurysm. Left vertebral artery: No occlusion or significant stenosis. No aneurysm. Basilar artery: No occlusion or significant stenosis. No aneurysm. Right posterior cerebral artery: No occlusion or significant stenosis. No aneurysm. Left posterior cerebral artery: No occlusion or significant stenosis. No aneurysm. Brain: No definite mass, mass effect, or midline shift. Cerebral ventricles: No ventriculomegaly. Orbital cavities: Post right cataract surgery. Bones/joints: Unremarkable. No acute fracture. Soft tissues: Unremarkable. IMPRESSION: 1. No large vessel occlusion. 2. No large territorial infarct. PROCEDURE INFORMATION: Exam: CTA Neck With Contrast Exam date and time: 12/07/2023 12:47 PM Age: 68 years old Clinical indication: Other: Dizziness, and numbness TECHNIQUE: Imaging protocol: Computed tomographic angiography of the neck with contrast. Exam focused on the cervical segments of the vasculature. 3D rendering (Not supervised by radiologist): MIP and/or 3D reconstructed images were created by the technologist. Radiation optimization: All CT scans at this facility use at least one of these dose optimization techniques: automated exposure control; mA and/or kV adjustment per patient size (includes targeted exams where dose is matched to clinical indication); or iterative reconstruction. Contrast material: OMNI 350; Contrast volume: 85 ml; Contrast route: INTRAVENOUS (IV); COMPARISON: CT BRAIN NECK CTA 08/16/2021 11:10 AM FINDINGS: Right common carotid artery: Calcified atheroma at the right common carotid artery but no significant stenosis. Right internal carotid artery: No stenosis of the extracranial segment. No dissection or occlusion. Right external carotid artery: No occlusion or stenosis of the origin. Left common carotid artery: Calcified atheroma of the left common carotid artery but no significant stenosis. Left internal carotid artery: No stenosis of the extracranial segment. No dissection or occlusion. Left external carotid artery: No occlusion or stenosis of the origin. Right vertebral artery: Hypoplastic right vertebral artery terminating in PICA. Left vertebral artery: No stenosis. No dissection or occlusion. Brachiocephalic artery: Common origin of the right brachiocephalic artery and left common carotid artery. Aorta: Aortic arch calcifications. Soft tissues: Normal. No significant soft tissue swelling. Bones/joints: Multilevel mild to moderate degenerative disease of the cervical spine, most pronounced at C5-C6 and C6-C7. Sclerotic lesion in the posterior upper endplate of C7, likely benign. Mild anterolisthesis of C7 over T1. Mild anterolisthesis of T1 over T2 and T2 over T3. Mild curvature of the spine convex to the right. IMPRESSION: No significant stenosis. REFERENCES: NASCET CRITERIA. The degree of stenosis in the cervical segment of the internal carotid artery is based on NASCET criteria. Normal is no stenosis. Mild is less than 50% stenosis. Moderate is 50-69% stenosis. Severe is 70% to 99% stenosis. Total occlusion is no detectable patent lumen. Dictated and Authenticated by: Vinay Valencia MD. Ordering:TATUM Duncan MD
--- NOTE | 2023-12-07 13:26 | DI.VRAD_ITS ---
PROCEDURE INFORMATION: Exam: CTA Chest With Contrast Exam date and time: 12/07/2023 12:58 PM Age: 68 years old Clinical indication: Other: Chest pain, SOB TECHNIQUE: Imaging protocol: Computed tomographic angiography of the chest with contrast. Exam focused on the arteries. 3D rendering (Not supervised by radiologist): MIP and/or 3D reconstructed images were created by the technologist. Contrast material: OMNI 350; Contrast volume: 100 ml; Contrast route: INTRAVENOUS (IV); COMPARISON: CT BRAIN NECK CTA 12/07/2023 12:47 PM FINDINGS: Pulmonary arteries: Normal. No pulmonary emboli. Aorta: Unremarkable. No aortic aneurysm. No aortic dissection. Lungs: There is a 3 mm nodule in the right middle lobe (series 9, image 75). There are atelectatic changes in bilateral dependent lower lobes. No focal infiltrates. Pleural spaces: Unremarkable. No pneumothorax. No pleural effusion. Heart: Unremarkable. No cardiomegaly. No pericardial effusion. Lymph nodes: Unremarkable. No enlarged lymph nodes. Diaphragm: Small hiatal hernia. Bones/joints: Mild curvature of the thoracic spine convex to the right. Small multilevel anterior osteophytes of the thoracic spine consistent with mild degenerative disease. Soft tissues: Unremarkable. IMPRESSION: 1. No acute pulmonary infiltrates. 2. No pulmonary embolism. For patients at low risk (minimal or absent history of smoking and of other known risk factors), no routine follow-up is indicated. For patients at high risk (history of smoking or of other known risk factors), consider optional CT Chest at 12 months. (Reference: Sriram) References: Sriram H, et al. Guidelines for Management of Incidental Pulmonary Nodules Detected on CT Images: From the Fleischner Society 2017. Radiology. 2017;284(1):228-243. Dictated and Authenticated by: Vinay Valencia MD. Ordering:TATUM Duncan MD
[2023-12-07] MEDS: Albuterol 2.5 MG/3 ML INH SOLN VIAL UPD (14:20)
[2023-12-07 14:40] LABS: Troponin I < 50 ng/L (< or =60)
--- NOTE | 2023-12-07 14:46 | ED.GENADUL_ITS ---
Discharge Plan Disposition Patient Disposition: Home Discharge Details Clinical Impression: Dyspnea, Anxiety about health, Chest pain Primary Care Provider: Danielle Burgess ED Provider: Dakota Valdez Home Meds and New Rx's Prescriptions: Continued multivitamin Tablet 1 tab PO DAILY Held calcium carbonate-vitamin D3 [Calcium 500 + D] 500 mg(1,250mg) -400 unit tablet 1 tab PO DAILY Hold Instructions: Resume on 12/10/23. No Action ascorbate calcium (vitamin C) 500 mg tablet 500 mg PO TID Discharge Instructions Instructions: Chest Pain (ED), Dyspnea (ED), Anxiety (ED) Additional Instructions: Please continue to monitor symptoms and return immediately to the emergency department for any new or significant worsening of your condition. You may use the inhaler as needed 1 to 2 puffs every 4-6 hours as needed for shortness of breath or chest tightness. We have placed a referral to follow-up with your primary care provider preferably in the next 2 to 3 days for reassessment of your symptoms along with further outpatient testing as needed. Referrals: Danielle Burgess MD [Primary Care Provider] - 2 days Discharge Data Discharge Date/Time-TO BE ENTERED AT DEPARTURE: 12/07/23 15:34 HPI General Mode of arrival: ambulatory . Date/Time Provider Initiated Documentation: 12/07/23 11:19 . Limitations to Documentation: no limitations . Information obtained by: patient and RN notes reviewed . History of Present Illness 68 year old F presents to the emergency department with the chief complaint of chest pain, shortness of breath, dizziness, described as moderate, Quality is described as aching, and is localized to the chest. Patient extremity. Patient started experiencing this day(s) (10) and it has been constant. No relieving factors improve symptom(s), Movement worsens symptoms . Patient did receive the following treatments prior to arrival, none Related Data Home Medications Medication Instructions Recorded Confirmed calcium carbonate 500 mg-vitamin 1 tab PO DAILY 10/15/19 12/07/23 D3 10 mcg (400 unit) tablet (Calcium 500 + D) ascorbate calcium (vitamin C) 500 500 mg PO TID 06/30/20 12/07/23 mg tablet multivitamin 1 tab PO DAILY 02/27/22 12/07/23 Allergies Allergy/AdvReac Type Severity Reaction Status Date / Time cocoa butter Allergy Intermediate Rash Verified 12/07/23 11:24 [From Preparation H] glycerin [From Preparation H] Allergy Intermediate Rash Verified 12/07/23 11:24 mineral oil* Allergy Intermediate Rash Verified 12/07/23 11:24 [From Preparation H] petrolatum,white Allergy Intermediate Rash Verified 12/07/23 11:24 [From Preparation H] shark liver oil Allergy Intermediate Rash Verified 12/07/23 11:24 [From Preparation H] cephalexin AdvReac Nausea,Vomi Verified 12/07/23 11:24 ting,cramps ,diarrhea General Stated Complaint: Chest Pain MACK: 2 Review of Systems Constitutional Constitutional: Denies chills, Denies fever(s) and Denies malaise Cardiovascular Cardiovascular: Reports as per HPI, Reports chest pain, Denies chest pain with activity, Denies syncope, Denies edema, Denies irregular heart rhythm, Denies leg edema, Denies palpitations, Reports dyspnea and Reports dyspnea on exertion Respiratory Respiratory: Denies cough, Denies hemoptysis, Reports dyspnea and Reports dyspnea on exertion Gastrointestinal Gastrointestinal: Denies abdominal pain, Denies nausea and Denies vomiting Neurologic Neurologic: Denies syncope Psychiatric Psychiatric: Denies anxiety Endocrine Endocrine: Denies cold intolerance, Denies heat intolerance and Denies palpitations Exam Const General: cooperative, healthy appearing, comfortable, no acute distress, not diaphoretic and not ill appearing Nutritional Appearance: average body habitus Orientation: alert, awake and oriented x3 Limitations: mental status not altered Neck Neck: normal visual inspection, full ROM, trachea midline, supple and no anterior neck swelling Carotids: normal carotid upstroke and no bruits Chest Chest: normal inspection of the chest Resp Effort & Inspection: normal respiratory effort and able to speak in complete sentences Auscultation: clear to auscultation bilaterally Cardio Jugular venous pressure: no JVD Palpation: normal PMI Rate: regular rate Rhythm: regular rhythm Heart Sounds: S1 normal, S2 normal, no click, no gallops, no murmurs and no rubs Bruits: no abdominal aortic bruits and no carotid bruits Pulses: radial pulses present bilaterally 2+ Skin General skin exam: no rashes or lesions noted Neuro General: patient alert, patient awake, patient oriented x3, tone normal and moves all extremities Course Vital Signs Vital signs: Vital Signs Temperature 36.7 C 12/07/23 11:20 Pulse 85 12/07/23 11:20 Respiratory Rate 24 12/07/23 11:20 Blood Pressure 197/83 H 12/07/23 11:20 Pulse Oximetry 100 12/07/23 11:20 Temperature 36.7 C 12/07/23 14:01 Temperature Source Tympanic 12/07/23 11:20 Pulse 70 12/07/23 14:01 Pulse 74 12/07/23 14:01 Respiratory Rate 17 12/07/23 14:01 Respiratory Effort Normal, Non-Labored 12/07/23 11:32 Respiratory Depth Normal 12/07/23 11:32 Respiratory Pattern Normal 12/07/23 11:32 Blood Pressure 156/72 H 12/07/23 14:01 Blood Pressure Mean 98 12/07/23 14:01 Blood Pressure Position Sitting 12/07/23 11:20 Pulse Oximetry 97 12/07/23 14:01 Oxygen Delivery Method Room Air 12/07/23 11:20 Oxygen Flow Rate 0 12/07/23 11:20 Pain Level 5 12/07/23 11:32 Lab/Test Results Lab/Test Results: Laboratory Tests Range/Units 12/07/23 12/07/23 12/07/23 11:28 12:16 14:15 WBC (4.4-10.8) 10^3/uL 5.53 RBC (3.93-5.22) 10^6/uL 4.65 Hgb (11.2-15.7) g/dL 14.2 Hct (36.0-46.0) % 42.5 MCV (80-95) fL 91 MCH (27.0-33.0) pg 30.5 MCHC (32.0-36.0) % 33.4 RDW (11.7-14.6) % 13.2 Plt Count (130-400) 10^3/uL 274 MPV (8.0-11.0) fL 9.4 Immature Gran % 0.4 Neutrophils % 59.1 Lymphocytes % 33.1 Monocytes % 6.3 Eosinophils % 0.7 Basophils % 0.4 Nucleated RBC % (0.0-0.3) % 0.0 Absolute Neutrophils (1.2-6.7) 10^3/uL 3.27 Absolute Lymphocytes (1.2-3.4) 10^3/uL 1.83 Absolute Monocytes (0.1-0.8) 10^3/uL 0.35 Absolute Eosinophils (0.0-0.7) 10^3/uL 0.04 Absolute Basophils (0.0-0.2) 10^3/uL 0.02 Sodium (136-145) mmol/L 139 Potassium (3.5-5.1) mmol/L 3.7 Chloride (98-107) mmol/L 102 Carbon Dioxide (21.0-32.0) mmol/L 26.0 Anion Gap (3-11) mmol/L 11.0 BUN (7-18) mg/dL 9 Creatinine (0.55-1.02) mg/dL 0.8 Est GFR (CKD-EPI 2020) (mL/min/1.73m2) 79.22 Glucose (74-106) mg/dL 102 Calcium (8.5-10.1) mg/dL 10.6 H Magnesium (1.8-2.4) mg/dL 1.8 Total Bilirubin (0.2-1.0) mg/dL 0.5 AST (15-37) U/L 20 ALT (14-59) U/L 25 Alkaline Phosphatase (46-116) U/L 69 Troponin I (< or =60) ng/L < 50 < 50 NT-Pro-B Natriuret Pep (<300) pg/mL 110 Total Protein (6.4-8.2) g/dL 7.6 Albumin (3.4-5.0) g/dL 3.8 Medical Decision Making Patient presenting to the emergency department for chief complaint of chest pain, shortness of breath, and intermittent dizziness for the past 10 days. She states no marked event with onset, has had some numbness and tingling around her mouth and hands. Patient denies fever chills, syncope, extremity swelling, abdominal pain. States history of high blood pressure that was treated with an KATHI inhibitor but caused significant cough and she lost significant amount of weight and change lifestyle and had resolution of blood pressure issues at that time. Patient denies any other contributing past medical history. Physical exam is unremarkable, vital signs stable except for marked hypertension which patient does state that she does have some whitecoat syndrome so we will monitor. Given story of chest pain especially that worsens with activity and same thing with shortness of breath will perform full workup including CT imaging of chest. With patient stating some facial numbness and arm numbness that is intermittent will perform CTA brain and neck but has no focal neurological symptoms. Pending results will give patient IV acetaminophen. Please see physician interpretation for full interpretation of EKG but upon my review patient is in sinus rhythm with no acute findings to suggest STEMI. Will continue to monitor Reviewed patient's labs and CBC is unremarkable, CMP shows slight elevation of calcium at 10.6 which she takes daily calcium for otherwise unremarkable, troponin is negative nondetected, BNP is 100, CT imaging reviewed and brain and neck CT imaging shows no acute findings along with no acute findings of chest CTA. Patient reassessed and still states some symptoms especially complaining of shortness of breath. Will give patient albuterol inhaler and check delta troponin. Of note patient's blood pressure has improved without intervention. Delta troponin is also negative nondetected, patient does state improvement after albuterol inhaler and with ambulation test through the department had no significant hypoxia or tachycardia secondary to activity. Also noted patient's blood pressure continue to improve with blood pressure 148/53. Patient is negative for COVID flu and RSV. With patient's history of hypertension, Hyperlipidemia and age did discuss with patient consideration of observation for stress and echo test. Given that she has had some improvement but not full improvement of symptoms. After discussion of patient's risk factors along with possible further testing shared decision- making was utilized and patient states that she would prefer to go home and follow-up with primary care provider but does state understanding of low threshold to return for new or worsening of symptoms. Patient placed on follow- up with primary care provider. Patient sent home with albuterol inhaler. After discussion of diagnosis and plan of care patient has no further needs, questions, or concerns and states clear understanding to return to the emergency department for any worsening symptoms. This documentation was generated using [employer] dictation system, please disregard any oddities of phrase or misspellings. Imaging Data Radiologic Study: Imaging: CT Scan Radiologist's impression: Exam(s) PROCEDURE INFORMATION: Exam: CTA Head With Contrast, Arteriography Exam date and time: 12/07/2023 12:47 PM Age: 68 years old Clinical indication: Other: Dizziness, and numbness TECHNIQUE: Imaging protocol: Computed tomographic angiography of the head with contrast. Exam focused on the arteries. 3D rendering (Not supervised by radiologist): MIP and/or 3D reconstructed images were created by the technologist. Contrast material: OMNI 350; Contrast volume: 85 ml; Contrast route: INTRAVENOUS (IV); COMPARISON: CT BRAIN NECK CTA 08/16/2021 11:10 AM FINDINGS: ANTERIOR CIRCULATION: Right internal carotid artery: Intracranial segment is patent with no significant stenosis. No aneurysm. Right middle cerebral artery: No occlusion or significant stenosis. No aneurysm. Right anterior cerebral artery: No occlusion or significant stenosis. No aneurysm. Left internal carotid artery: Intracranial segment is patent with no significant stenosis. No aneurysm. Left middle cerebral artery: No occlusion or significant stenosis. No aneurysm. Left anterior cerebral artery: No occlusion or significant stenosis. No aneurysm. POSTERIOR CIRCULATION: Right vertebral artery: No occlusion or significant stenosis. No aneurysm. Left vertebral artery: No occlusion or significant stenosis. No aneurysm. Basilar artery: No occlusion or significant stenosis. No aneurysm. Right posterior cerebral artery: No occlusion or significant stenosis. No aneurysm. Left posterior cerebral artery: No occlusion or significant stenosis. No aneurysm. Brain: No definite mass, mass effect, or midline shift. Cerebral ventricles: No ventriculomegaly. Orbital cavities: Post right cataract surgery. Bones/joints: Unremarkable. No acute fracture. Soft tissues: Unremarkable. IMPRESSION: 1. No large vessel occlusion. 2. No large territorial infarct. PROCEDURE INFORMATION: Exam: CTA Neck With Contrast Exam date and time: 12/07/2023 12:47 PM Age: 68 years old Clinical indication: Other: Dizziness, and numbness TECHNIQUE: Imaging protocol: Computed tomographic angiography of the neck with contrast. Exam focused on the cervical segments of the vasculature. 3D rendering (Not supervised by radiologist): MIP and/or 3D reconstructed images were created by the technologist. Radiation optimization: All CT scans at this facility use at least one of these dose optimization techniques: automated exposure control; mA and/or kV adjustment per patient size (includes targeted exams where dose is matched to clinical indication); or iterative reconstruction. Contrast material: OMNI 350; Contrast volume: 85 ml; Contrast route: INTRAVENOUS (IV); COMPARISON: CT BRAIN NECK CTA 08/16/2021 11:10 AM FINDINGS: Right common carotid artery: Calcified atheroma at the right common carotid artery but no significant stenosis. Right internal carotid artery: No stenosis of the extracranial segment. No dissection or occlusion. Right external carotid artery: No occlusion or stenosis of the origin. Left common carotid artery: Calcified atheroma of the left common carotid artery but no significant stenosis. Left internal carotid artery: No stenosis of the extracranial segment. No dissection or occlusion. Left external carotid artery: No occlusion or stenosis of the origin. Right vertebral artery: Hypoplastic right vertebral artery terminating in PICA. Left vertebral artery: No stenosis. No dissection or occlusion. Brachiocephalic artery: Common origin of the right brachiocephalic artery and left common carotid artery. Aorta: Aortic arch calcifications. Soft tissues: Normal. No significant soft tissue swelling. Bones/joints: Multilevel mild to moderate degenerative disease of the cervical spine, most pronounced at C5-C6 and C6-C7. Sclerotic lesion in the posterior upper endplate of C7, likely benign. Mild anterolisthesis of C7 over T1. Mild anterolisthesis of T1 over T2 and T2 over T3. Mild curvature of the spine convex to the right. IMPRESSION: No significant stenosis. Radiologic Study #2: Imaging: CT Scan Radiologist's impression: Exam(s) PROCEDURE INFORMATION: Exam: CTA Chest With Contrast Exam date and time: 12/07/2023 12:58 PM Age: 68 years old Clinical indication: Other: Chest pain, SOB TECHNIQUE: Imaging protocol: Computed tomographic angiography of the chest with contrast. Exam focused on the arteries. 3D rendering (Not supervised by radiologist): MIP and/or 3D reconstructed images were created by the technologist. Contrast material: OMNI 350; Contrast volume: 100 ml; Contrast route: INTRAVENOUS (IV); COMPARISON: CT BRAIN NECK CTA 12/07/2023 12:47 PM FINDINGS: Pulmonary arteries: Normal. No pulmonary emboli. Aorta: Unremarkable. No aortic aneurysm. No aortic dissection. Lungs: There is a 3 mm nodule in the right middle lobe (series 9, image 75). There are atelectatic changes in bilateral dependent lower lobes. No focal infiltrates. Pleural spaces: Unremarkable. No pneumothorax. No pleural effusion. Heart: Unremarkable. No cardiomegaly. No pericardial effusion. Lymph nodes: Unremarkable. No enlarged lymph nodes. Diaphragm: Small hiatal hernia. Bones/joints: Mild curvature of the thoracic spine convex to the right. Small multilevel anterior osteophytes of the thoracic spine consistent with mild degenerative disease. Soft tissues: Unremarkable. IMPRESSION: 1. No acute pulmonary infiltrates. 2. No pulmonary embolism. For patients at low risk (minimal or absent history of smoking and of other known risk factors), no routine follow-up is indicated. For patients at high risk (history of smoking or of other known risk factors), consider optional CT Chest at 12 months. (Reference: Sriram) References: Sriram Del Real et al. Guidelines for Management of Incidental Pulmonary Nodules Detected on CT Images: From the Fleischner Society 2017. Radiology. 2017;284(1):228-243. Dictated and Authenticated by: Vinay Valencia MD. Lab Data Lab results reviewed: Yes I reviewed the patient's lab results. Quality:SDOH Health Related Social Needs: No Data to Display PFSH All Active Problems (Updated 12/07/23 @ 15:23 by Daktoa Valdez NP) Chest pain (Acute) Anxiety about health (Acute) Dyspnea (Acute) Trochanteric bursitis of both hips (Acute) Osteoporosis of femur without pathological fracture (Acute ~07/26/22) Recurrent occipital headache (Chronic) Migraine headache with aura (Chronic) Essential hypertension (Chronic) Hyperlipidemia (Chronic) Hearing loss (Chronic) Medical History Herpes zoster 05/2021 Sigmoid diverticulosis BPPV (benign paroxysmal positional vertigo) Osteoarthritis C5-6 cervical spine Tubulovillous adenoma of colon Surgical History S/P cataract extraction S/P colonoscopy S/P tonsillectomy and adenoidectomy History of reversal of tubal ligation (~1981) History of bilateral tubal ligation (~1977) Family History Mother Stroke Ovarian cancer Hypertension Hyperlipidemia Father Diabetes Sister , at 58 of accidental overose Endometriosis Type 2 diabetes mellitus Substance abuse Hypertension Sister , at 56 Endometriosis Hypertension Substance abuse Sister Endometriosis Hypertension Brother Heart disease Type 2 diabetes mellitus Hypertension Brother Hypertension Brother Hyperlipidemia Type 2 diabetes mellitus Myocardial infarction Heart disease Essential hypertension Substance abuse Son No problems noted. Daughter No problems noted. Maternal Grandfather No problems noted. Maternal Grandmother , at 75 Essential hypertension Ovarian cancer Paternal Grandfather No problems noted. Paternal Grandmother No problems noted. 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 Pets and animals: No Do you think of yourself as: straight/heterosexual Current gender identity: female What is your relationship status?: How often do you talk on the phone with friends or family?: twice per week Do you belong to any clubs or organized social groups?: no Panel score (0-1 are the most socially isolated patients): 0 What type of physical activity do you participate in: walking and other Details: Gardening, hiking, snowshoeing Duration: 60-90 minutes/day Frequency: 3-4 times per week Rylee/Jehovah'S Witness: No preference Special rylee needs: No Seatbelt use: always Drive intox or ride w/intox experienced truck driver: No Do you feel safe at home: Yes Do you feel safe in your relationship?: Yes Female Reproductive History Menstrual Menopause type: natural History History 4 Para 2 Hx # Term Pregnancies Multiple births Hx # Pregnancies Ectopic pregnancies AB induced Hx Number of Living Children 2 AB spontaneous 2
--- NOTE | 2023-12-07 14:49 | NUR.NOTE ---
ambulation saturation study performed, walked approximately 100 feet, with portable pulse ox attached, saturation remained at 98-99%, HR remained in the 70's without significant increase, pt reports decreased SOB and work of breathing, RN observed cessation of SOB with exertion, all findings reported to provider
[2023-12-07 14:58] LABS: COVID-19 PCR Negative (Negative); Influenza A PCR Negative (Negative); Influenza B PCR Negative (Negative); RSV PCR Negative (Negative); Source Nasopharynx
[2023-12-07] MEDS: Albuterol HFA 8 GM 60 PUFF INH IH (15:33)
[2023-12-07] MEDS: Aspirin 81 MG CHEW 324 MG CH (15:34)
--- NOTE | 2023-12-07 15:34 | NUR.NOTE ---
Faxed referral to [facility] for a recheck on chest pain and SOB, there is a need for further outpatient testing. The Dr would like this visit within 2-3 days.
== END 2023-12-07 15:34 | disposition home or self-care (01) ==
PROVIDERS: Emergency Provider Nurse Practitioner Family; PCP Family Medicine
DX: R06.09 Other forms of dyspnea (principal); F41.9 Anxiety disorder, unspecified; R07.9 Chest pain, unspecified; I10 Essential (primary) hypertension; E78.5 Hyperlipidemia, unspecified
CPT/HCPCS: 70496; 70498; 71275; 80053; 87637; 93005; 94640; 96374; 99285; 83735; 83880; 84484; 85025; 93010; 99284; J0131; J3490; J7613

== ENCOUNTER → 2023-12-25 02:59 | Outpatient (CLI) | payer MEDICARE, MEDICAID, SELFPAY ==
--- NOTE | 2023-12-25 14:06 | DI.US_ITS ---
APPROVED REPORT EXAM: Treadmill Stress Echo Stress Nurse: Vanita Hernandez RN Ordering Provider: ALEXANDER MOLINA MD, Contact Number: [phone] HR: 69 bpm BP: 168/70 mmHg Rhythm: NSR ICD: Chest pain 07.9 Indications: Chest pain, shortness of breath Medical History Medical History: Anxiety, HTN, Chest pain, Dyspnea Medications: None Allergies: Cephalexin Cardiac Risk Factors: +Family history, HTN Previous Cardiac Procedures: None Pretest Chest Pain Characteristics: None Exercise History: Physically active Physical Disabilities: None Stress Test Details Test: Exercise stress testing was performed using a Vipul protocol. Rest Stress HR Resting HR Supine: 69 bpm Max Heart Rate (APMHR): 150 bpm Resting HR Standin bpm Target HR (85% APMHR): 128 bpm Max HR Achieved: 211 bpm % of APMHR: 141 Recovery HR: 72 bpm HR response to stress: Accelerated HR response to stress BP Resting BP Supine: 168/70 mmHg Resting BP Standin/72 mmHg Max BP: 210/52 mmHg Recovery BP: 168/54 mmHg BP response to stress: Normal blood pressure response to stress. ECG Resting ECG: Sinus Rhythm Ectopy: None Stress ECG: Sinus Tachycardia Arrhythmia: PVC Recovery ECG: Sinus Tachycardia Recovery ST Change: Upsloping ST depression w/ SVT only Lead(s): II, III, aVF Recovery ST Deviation: 0.5-1 mm Recovery Arrhythmia: SVT Clinical Reason for Termination: Target HR Achieved Stress Symptoms: None Exercise duration: 2 min43 sec Highest Stage Reached: Stage 1: 1.7 mph at 10% grade. Exercise capacity: 4.6 METs Angina Score: None Lopez Treadmill Score: 2.3 Rate Pressure Product: [id number] Stress ECG Conclusion 1. Resting EKG showed low voltage 2. Patient exercised on the[employer] protocol and completed a workload of 4.6 METS 3. Rapid heart rate response to exercise. Patient achieved greater than 100% heart rate for age 4. There was no electrocardiographic evidence of myocardial ischemia 5. Patient developed supraventricular tachycardia in recovery, rate approximately 200. This was asym ptomatic and terminated with Valsalva 6. Echocardiogram exercise showed improved contractility of all segments, no echo evidence of myocard ial ischemia 7. Exercise capacity was below average Lopez Treadmill Score is 2.3 which is Moderate risk. Critical Notification Physician Notified Date: 12/25/2023 Time: 14:38 Physician Name: Stress Test Summary STAGE Time (mins) Speed (mph) Grade (%) HR BP SYMPTOMS METS Supine 69 168/70 Standing 72 170/72 1 3 1.7 10 143 4.6 1 min recovery 197 3 min recovery 81 210/52 6 min recovery 76 192/58 9 min recovery 72 168/54 Patient presented to stress testing department for stress echocardiogram. Resting echo completed and patient utilized treadmill for stress portion of test. Vipul protocol started and THR was reached wit hin 3 minutes. Patient appeared to be slightly struggling with incline and it was decided to stop enrrique t given that she surpassed her THR. Treadmill stopped, patient moved safely and quickly to stretcher for stress echo images. Patient comfortable on stretcher when at 1 minute post exercise patient went into SVT (max rate 211) while having images done. Patient was asymptomatic. Patient was asked to perf orm 2 vagal maneuvers and after two she returned to a NSR. SVT lasted 15-30 seconds and patient repor rebecca no shortness of breathe, chest pain or palpitations during episode. Images were obtained and albaro ent was recovered. HR and BP returned to baseline. 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 was consulted and reviewed scenario and SVT episode. was okay to discharge patient. Patient was pleasant and cooperative with exam, was discharged ambulatory and in no apparent distress. Echo Findings The Pre-Stress Echocardiogram showed normal left ventricular contractility with an estimated Ejection Fraction of about 60%. The Peak-Stress Echocardiogram showed normal left ventricular contractility with an estimated Ejectio n Fraction of about 70%. Conclusion Resting EKG showed low voltage Patient exercised on theBruce protocol and completed a workload of 4.6 METS Rapid heart rate response to exercise. Patient achieved greater than 100% heart rate for age There was no electrocardiographic evidence of myocardial ischemia Patient developed supraventricular tachycardia in recovery, rate approximately 200. This was asympto matic and terminated with Valsalva Echocardiogram exercise showed improved contractility of all segments, no echo evidence of myocardial ischemia Exercise capacity was below average Plain Lopez Treadmill Score is 2.3 which is Moderate risk. Critical Notification Physician Notified Date: 12/25/2023 Time: 14:38 Physician Name:
== END ==
PROVIDERS: PCP Family Medicine; Visit Provider Family Medicine
DX: R07.9 Chest pain, unspecified (principal)
CPT/HCPCS: 93306; 93350; 93017

== ENCOUNTER 2024-01-09 13:49 | Outpatient (CLI) | payer MEDICARE, MEDICAID, SELFPAY ==
--- NOTE | 2024-01-09 13:45 | RT.EKG_ITS ---
APPROVED REPORT Exam: Resting ECG Reason for Exam: baseline Patient Location: O HR:55 bpm ECG Measurements Heart Rate 55 AXIS TN 160 P -25 QRSd 96 QRS -24 QT 420 T 33 QTc 402 Conclusion Sinus rhythm...normal P axis, V-rate 50- 99 Normal Electrocardiogram
== END 2024-01-09 13:50 | disposition home or self-care (01) ==
LOC: DI.CARD 13:53
PROVIDERS: PCP Family Medicine; Referring Provider Family Medicine; Visit Provider Internal Medicine Cardiovascular Disease
DX: I47.10 Supraventricular tachycardia, unspecified (principal)
CPT/HCPCS: 93010

== ENCOUNTER → 2024-01-09 13:49 | Outpatient (BNVA) | payer MEDICARE, MEDICAID, SELFPAY | PROVIDERS: PCP Family Medicine; Referring Provider Family Medicine; Visit Provider Internal Medicine Cardiovascular Disease | DX: I10 Essential (primary) hypertension (principal); I47.10 Supraventricular tachycardia, unspecified | CPT/HCPCS: 93005; 99214 ==

== ENCOUNTER → 2024-02-26 09:32 | Outpatient (BNVA) | payer MEDICARE, MEDICAID, SELFPAY | PROVIDERS: PCP Family Medicine; Referring Provider Family Medicine; Visit Provider Internal Medicine Cardiovascular Disease | DX: I47.10 Supraventricular tachycardia, unspecified (principal); I10 Essential (primary) hypertension | CPT/HCPCS: 99213 ==

== ENCOUNTER 2024-08-12 00:52 | Outpatient (CLI) | payer MEDICARE, MEDICAID, SELFPAY ==
--- NOTE | 2024-08-12 08:45 | DI.DEXA_ITS ---
Exam(s) XR DEXA BONE DENSITY W/WO KARY EXAM: XR DEXA BONE DENSITY W/WO KARY CLINICAL HISTORY: Screening,n95.9,menopausal disorder TECHNIQUE: COMPARISON: CR XR DEXA BONE DENSITY W/WO KARY from 07/26/2022 CR XR LUMBAR SPINE COMPLETE from 07/22/2023 FINDINGS: Lateral Spine Image: Unremarkable. No compression deformities identified. There is grade 1 anterolis thesis of L3 on L4. Left. Hip: Total T-Score: -2.1. This compares to -2.3 on the prior examination. Total Z-Score: -0.6 T- and Z-scores: Overall, findings are consistent with osteopenia. There is osteoporosis in the femo ral neck with a T-score of -2.9. Lumbar Spine: Total T-Score: -0.4. This compares to -0.1 on the prior examination. Total Z-Score: 1.8 T- and Z-scores: Within normal limits. Left forearm: Total T-score:-2.5. This compares to -1.9 on the prior examination. Total Z-score:-0.4 T and Z scores: Findings are consistent with osteoporosis. IMPRESSION: Osteoporosis in the left forearm.
== END 2024-08-12 01:12 ==
LOC: DI 00:52
PROVIDERS: PCP Family Medicine; Visit Provider Family Medicine
DX: Z12.31 Encounter for screening mammogram for malignant neoplasm of breast (principal); M81.0 Age-related osteoporosis without current pathological fracture
CPT/HCPCS: 77080

== ENCOUNTER → 2025-02-24 09:24 | Outpatient (BNVA) | payer MEDICARE, MEDICAID, SELFPAY | PROVIDERS: PCP Family Medicine; Visit Provider Internal Medicine Cardiovascular Disease | DX: I10 Essential (primary) hypertension (principal) | CPT/HCPCS: 99213 ==

== ENCOUNTER 2025-06-22 03:25 | Outpatient (CLI) | payer MEDICARE, MEDICAID, SELFPAY ==
--- NOTE | 2025-06-22 06:45 | DI.MRI_ITS ---
Exam(s) MR LUMBAR SPINE WO EXAM: MR LUMBAR SPINE WO CLINICAL HISTORY: chronic midline low back pain with sciatica,m54.40. TECHNIQUE: Multiplanar multisequence MRI of the Lumbar spine was performed. COMPARISON: CR XR DEXA BONE DENSITY W/WO KARY from 08/12/2024 FINDINGS: Bones: The last intervertebral disc space is designated the L5/S1 level for the numbering purpose of this examination. The vertebral body heights are well maintained. Alignment: Mild degenerative dextroscoliosis. Mild retrolisthesis at L3-4 and L4-5 secondary to facet joint degenerative changes. The marrow signal characteristics are unremarkable. Cord: The conus tip ends at the T12 level. It is of normal size and signal intensity. T12-L1: The disc height is maintained. No focal disc herniation is present. No central spinal canal stenosis.No neural foraminal stenosis. L1-2: The disc height is maintained. No focal disc herniation is present. No central spinal canal stenosis.No neural foraminal stenosis. L2-3:There is moderate loss of disc height and endplate osteophytes projecting posteriorly. No focal disc herniation is present. There are facet degenerative changes and ligamentous hypertrophy which combine to produce a moderate degree of central canal stenosis as well as severe bilateral neural foraminal narrowing. L3-4: There is mild loss of disc height. There is broad-based disc bulging. There prominent facet degenerative changes causing mild retrolisthesis. There is severe left neural foraminal narrowing and moderate right neural foraminal narrowing. There is severe central canal stenosis. L4-5:There is mild loss of disc height. There are facet degenerative changes causing mild retrolisthesis. No focal disc herniation is present. There is mild central spinal canal stenosis, of the transverse dimension..No neural foraminal stenosis. L5-S1: Severe loss of disc height. Endplate osteophytes projecting circumferentially.There is a tiny left paracentral disc protrusion. There are no significant facet degenerative changes or ligamentous hypertrophy. There is mild left neural foraminal narrowing. No central spinal canal stenosis The visualized SI joints and sacrum are unremarkable. Soft tissues: The paraspinal soft tissues are unremarkable. IMPRESSION: Degenerative disc changes and facet degenerative changes cause severe central canal stenosis at L3-4 and moderate central canal stenosis at L2-3. Neural foraminal narrowing is most severe at L2-3 and L3-4. DATA REPOSITORY:
== END 2025-06-22 03:45 ==
PROVIDERS: PCP Family Medicine; Visit Provider Family Medicine
DX: M54.41 Lumbago with sciatica, right side (principal); M48.061 Spinal stenosis, lumbar region without neurogenic claudication
CPT/HCPCS: 72148

== ENCOUNTER 2025-07-15 00:12 | Outpatient (CLI) | payer MEDICARE, SELFPAY ==
[2025-07-15 15:12] LABS: Anion Gap 6.7 mmol/L (3-11); BUN 13 mg/dL (7-18); CO2 28.3 mmol/L (21.0-32.0); Calcium 10.2 mg/dL (8.5-10.1); Calculated LDL 116 mg/dL (<100); Chloride 103 mmol/L (98-107); Cholesterol 221 mg/dL (<200); Estimated GFR 95.90 (mL/min/1.73m2); Glucose 102 mg/dL (74-106); HDL Cholesterol 98 mg/dL (>or=50); Potassium 3.6 mmol/L (3.5-5.1); Sodium 138 mmol/L (136-145); Triglyceride 35 mg/dL (<150)
[2025-07-15 22:21] LABS: Hepatitis C Ab w Rflx HCV PCR Negative (Negative)
== END 2025-07-15 00:13 | disposition home or self-care (01) ==
LOC: LOS 00:13
PROVIDERS: PCP Family Medicine; Visit Provider Family Medicine
DX: Z11.59 Encounter for screening for other viral diseases (principal); Z13.6 Encounter for screening for cardiovascular disorders; Z13.1 Encounter for screening for diabetes mellitus
CPT/HCPCS: 36415; 80048; 80061; 86803